=== PATIENT | female | born 1945 | race African-American/Black ===

== ENCOUNTER 2017-04-25 19:12 | Emergency (ER) | payer MEDICARE, MEDICAID ==
[2017-04-25 19:37] LABS: #Basophils 0.1 thou/uL (0.0-0.2); #Eosinphils 0.3 thou/uL (0.0-0.7); #Lymphocytes 2.3 thou/uL (1.20-3.40); #Monocytes 0.6 thou/uL (0.11-0.59); #Neutrophils 3.5 thou/uL (1.40-6.50); %Basophils 1.2 % (0.0-1.0); %Eosinophils 4.1 % (0.0-10.0); %Lymphocytes 34.2 % (21.0-51.0); Hematocrit 38.2 % (36.0-47.0); Red Blood Cell (RBC) Count 3.79 mill/uL (4.20-5.40); White Blood Cell (WBC) Count 6.7 thou/uL (4.8-10.8)
--- NOTE | 2017-04-25 19:45 | RAD ---
AP VIEW OF THE CHEST 04/25/17 INDICATION: Chest pain. IMPRESSION: No acute cardiopulmonary abnormality. Examination is not appreciably changed from comparison dated . Heart size remains upper limits of normal. POS: [facility]
[2017-04-25 20:07] LABS: Troponin I Less than 0.010 ng/mL (< 0.028)
[2017-04-25 20:23] LABS: ALT (SGPT) 17 U/L (8-55); AST (SGOT) 35 U/L (5-34); Alkaline Phosphatase 81 U/L (40-150); Anion Gap 16 mmol/L (10-20); BUN (Urea Nitrogen) 14 mg/dL (9.8-20.1); Bilirubin, Total 0.7 mg/dL (0.2-1.2); CK (CPK) 329 U/L (29-168); Calc. Creatinine Clearance 0 mL/min (70-130); Calcium 9.7 mg/dL (7.8-10.44); Carbon Dioxide 20 mmol/L (23-31); Chloride 106 mmol/L (98-107); Estimated GFR-MDRD 67; Globulin 4.5 g/dL (2.4-3.5); Protein, Total 8.6 g/dL (6.0-8.3)
[2017-04-25 23:23] LABS: Troponin I Less than 0.010 ng/mL (< 0.028)
--- NOTE | 2017-05-05 13:24 | EKG ---
Test Reason : CHEST PAIN Blood Pressure : / mmHG Vent. Rate : 055 BPM Atrial Rate : 055 BPM P-R Int : 180 ms QRS Dur : 094 ms QT Int : 468 ms P-R-T Axes : 077 020 084 degrees QTc Int : 447 ms Sinus bradycardia Minimal voltage criteria for LVH, may be normal variant T wave abnormality, consider lateral ischemia Abnormal ECG Confirmed by HUNTER GZUMAN ([id number]), slot editor MERRICK STEPHENS ([id number]) on 05/05/2017 1:24:11 PM Referred By: DAKOTA Confirmed By:HUNTER GUZMAN
== END 2017-04-26 01:04 | disposition home or self-care (01) ==
LOC: ERS 19:12
DX: R07.9 Chest pain, unspecified (principal); I89.0 Lymphedema, not elsewhere classified; E78.5 Hyperlipidemia, unspecified; M06.9 Rheumatoid arthritis, unspecified; Z79.899 Other long term (current) drug therapy
CPT/HCPCS: 36415; 71010; 80053; 82550; 82553; 84484; 85025; 93005; 94760

== ENCOUNTER 2017-06-27 18:08 | Emergency (ER) | payer MEDICARE, OTHER ==
[~2017-06-27 18:08] MED LIST: ISOVUE-370 76%-LOCM 1 ML ONE
[2017-06-27 20:04] LABS: Bilirubin Negative (Negative); Blood, Urine Negative (Negative); Glucose, Urine (Dipstick) Negative (Negative); Leukocyte Negative (Negative); Nitrite Negative (Negative); Protein, Urine (Dipstick) Negative (Neg-Trace); Urobilinogen 0.2 mg/dL (0.2-1.0)
[2017-06-27 20:11] LABS: Clarity Clear (Clear)
[2017-06-27 20:13] LABS: Specific Gravity, Urine 1.003 (1.002-1.036)
[2017-06-27] MEDS ORDERED: Methocarbamol 500 MG TAB PO SCH (20:15)
[2017-06-27 20:58] LABS: #Basophils 0.1 thou/uL (0.0-0.2); #Eosinphils 0.2 thou/uL (0.0-0.7); #Lymphocytes 2.1 thou/uL (1.20-3.40); #Monocytes 0.6 thou/uL (0.11-0.59); #Neutrophils 4.4 thou/uL (1.40-6.50); %Eosinophils 2.8 % (0.0-10.0); %Lymphocytes 28.3 % (21.0-51.0); %Neutrophils 59.9 % (42.0-75.0); Hemoglobin 11.6 g/dL (12.0-16.0); Mean Corpuscular HGB CONC 33.2 g/dL (32.0-36.0); Mean Corpuscular Hemoglobin 33.8 pg (27.0-31.0); Mean Platelet Volume 7.6 fL (7.4-10.4); Platelet Count 224 thou/uL (130-400); RBC Distribution Width 13.1 % (11.5-14.5); Red Blood Cell (RBC) Count 3.44 mill/uL (4.20-5.40); White Blood Cell (WBC) Count 7.4 thou/uL (4.8-10.8)
[2017-06-27 21:24] LABS: ALT (SGPT) 13 U/L (8-55); AST (SGOT) 21 U/L (5-34); Albumin 3.8 g/dL (3.4-4.8); Alkaline Phosphatase 86 U/L (40-150); Anion Gap 11 mmol/L (10-20); BUN (Urea Nitrogen) 14 mg/dL (9.8-20.1); Bilirubin, Total 0.5 mg/dL (0.2-1.2); Calc. Creatinine Clearance 0 mL/min (70-130); Calcium 9.3 mg/dL (7.8-10.44); Carbon Dioxide 24 mmol/L (23-31); Chloride 105 mmol/L (98-107); Estimated GFR-MDRD 76; Globulin 3.6 g/dL (2.4-3.5); Glucose 99 mg/dL (80-115); Lipase 18 U/L (8-78); Potassium 3.8 mmol/L (3.5-5.1); Protein, Total 7.4 g/dL (6.0-8.3); Sodium 136 mmol/L (136-145)
--- NOTE | 2017-06-27 22:12 | CT ---
CT OF THE ABDOMEN AND PELVIS WITH CONTRAST 06/27/17 HISTORY: Diffuse abdominal and back pain for 6 to 7 months. TECHNIQUE: Multiple contiguous axial images were obtained in a CT of the abdomen and pelvis with contrast. Coron al reformats were performed. FINDINGS: The liver, gallbladder, right kidney, adrenal glands, spleen and pancreas are unremarkable. There is a subcentimeter hypodensity in the superior pole of the left kidney which is too small to definitely characterize but likely represents a cyst. The large and small bowel are unremarkable. The appendix i s unremarkable. The patient is status post hysterectomy. No abdominal or pelvic lymphadenopathy are s een. Degenerative changes are see in the spine. The abdominal wall soft tissues and visualized inferi or thorax are unremarkable. IMPRESSION: No evidence of acute intra-abdominal/pelvic abnormality. POS: [facility]
== END 2017-06-27 23:30 | disposition home or self-care (01) ==
LOC: ERS 18:08
DX: R10.9 Unspecified abdominal pain (principal); M54.9 Dorsalgia, unspecified; E78.5 Hyperlipidemia, unspecified
CPT/HCPCS: 36415; 74177; 80053; 81003; 83690; 85025; 96372

== ENCOUNTER 2017-07-06 20:09 | Emergency (ER) | payer MEDICARE, MEDICAID ==
[2017-07-06 20:55] LABS: #Basophils 0.1 thou/uL (0.0-0.2); #Eosinphils 0.3 thou/uL (0.0-0.7); #Lymphocytes 1.9 thou/uL (1.20-3.40); #Monocytes 0.5 thou/uL (0.11-0.59); #Neutrophils 3.9 thou/uL (1.40-6.50); %Basophils 0.8 % (0.0-1.0); %Eosinophils 4.2 % (0.0-10.0); %Lymphocytes 28.6 % (21.0-51.0); %Neutrophils 59.3 % (42.0-75.0); Hemoglobin 12.7 g/dL (12.0-16.0); Mean Corpuscular HGB CONC 32.3 g/dL (32.0-36.0); Mean Corpuscular Hemoglobin 33.1 pg (27.0-31.0); Mean Platelet Volume 7.7 fL (7.4-10.4); Platelet Count 225 thou/uL (130-400); RBC Distribution Width 13.2 % (11.5-14.5); Red Blood Cell (RBC) Count 3.85 mill/uL (4.20-5.40); White Blood Cell (WBC) Count 6.6 thou/uL (4.8-10.8)
[2017-07-06 21:16] LABS: ALT (SGPT) 15 U/L (8-55); AST (SGOT) 23 U/L (5-34); Albumin 4.1 g/dL (3.4-4.8); Alkaline Phosphatase 84 U/L (40-150); Anion Gap 16 mmol/L (10-20); BUN (Urea Nitrogen) 14 mg/dL (9.8-20.1); Bilirubin, Total 0.6 mg/dL (0.2-1.2); Calc. Creatinine Clearance 0 mL/min (70-130); Calcium 9.6 mg/dL (7.8-10.44); Carbon Dioxide 20 mmol/L (23-31); Chloride 106 mmol/L (98-107); Estimated GFR-MDRD 81; Globulin 3.7 g/dL (2.4-3.5); Glucose 92 mg/dL (80-115); Potassium 3.7 mmol/L (3.5-5.1); Protein, Total 7.8 g/dL (6.0-8.3); Sodium 138 mmol/L (136-145)
[2017-07-06 21:21] LABS: CKMB 3.2 ng/mL (0-6.6); Troponin I 0.012 ng/mL (< 0.028)
[2017-07-06 21:50] LABS: Bilirubin Negative (Negative); Blood, Urine Negative (Negative); Clarity CLEAR (Clear); Glucose, Urine (Dipstick) Negative (Negative); Leukocyte Negative (Negative); Nitrite Negative (Negative); Protein, Urine (Dipstick) Negative (Neg-Trace); Specific Gravity, Urine 1.006 (1.002-1.036); Urobilinogen 0.2 mg/dL (0.2-1.0)
--- NOTE | 2017-07-06 22:01 | RAD ---
PORTABLE AP CHEST RADIOGRAPH: Date: 07-06-17 History: Syncope. Comparison: 04-26-17 FINDINGS: Cardiac silhouette is magnified by projection. Pulmonary vasculature is within normal limits. Lungs a re clear. Chest is stable when compared to the prior exam. IMPRESSION: No acute cardiopulmonary process. POS: [facility]
--- NOTE | 2017-07-06 22:36 | CT ---
NONCONTRAST CT HEAD: Date: 07-06-17 History: Head pain for one hour. Dizziness. Comparison: None available. FINDINGS: There is scattered low density areas of periventricular white matter which are nonspecific but likely reflective of mild chronic small vessel ischemic changes. There is no evidence of an acute cortical infarction, mass, hemorrhage or midline shift. The ventricular system is normal in size, shape, and p osition. Visualized paranasal sinuses and mastoid air cells are clear. Osseous structures are intact. IMPRESSION: No acute intracranial abnormalities demonstrated. Mild chronic small vessel ischemic changes. POS: [facility]
--- NOTE | 2017-08-01 15:56 | EKG ---
Test Reason : DIZZY Blood Pressure : / mmHG Vent. Rate : 066 BPM Atrial Rate : 066 BPM P-R Int : 168 ms QRS Dur : 090 ms QT Int : 410 ms P-R-T Axes : 070 042 157 degrees QTc Int : 429 ms Normal sinus rhythm T wave abnormality, consider inferolateral ischemia Abnormal ECG Confirmed by PAULA LOYA, CALLI ([id number]), loan expeditor MERRICK STEPHENS ([id number]) on 08/01/2017 3:56:07 PM Referred By: Confirmed By:CALLI MITCHELL MD
== END 2017-07-07 00:07 | disposition home or self-care (01) ==
LOC: ERS 20:09
DX: R42 Dizziness and giddiness (principal); E78.5 Hyperlipidemia, unspecified; M06.9 Rheumatoid arthritis, unspecified
CPT/HCPCS: 36415; 70450; 71045; 80053; 81003; 82553; 83880; 84484; 85025; 93005

== ENCOUNTER 2017-07-29 09:16 | Observation (INO) | payer MEDICARE, MEDICAID ==
[2017-07-29 10:35] LABS: #Eosinphils 0.2 thou/uL (0.0-0.7); #Lymphocytes 1.4 thou/uL (1.20-3.40); #Monocytes 0.4 thou/uL (0.11-0.59); #Neutrophils 2.1 thou/uL (1.40-6.50); %Basophils 0.9 % (0.0-1.0); %Lymphocytes 33.5 % (21.0-51.0); %Monocytes 9.3 % (0.0-10.0); %Neutrophils 51.2 % (42.0-75.0); Hemoglobin 12.1 g/dL (12.0-16.0); Mean Corpuscular Hemoglobin 33.1 pg (27.0-31.0); Mean Platelet Volume 7.4 fL (7.4-10.4); Platelet Count 225 thou/uL (130-400); RBC Distribution Width 12.8 % (11.5-14.5); Red Blood Cell (RBC) Count 3.66 mill/uL (4.20-5.40); White Blood Cell (WBC) Count 4.1 thou/uL (4.8-10.8)
[2017-07-29 10:42] LABS: PTT 25.7 SEC (22.9-36.1); Prothrombin Time 13.4 SEC (12.0-14.7)
[2017-07-29 10:59] LABS: ALT (SGPT) 13 U/L (8-55); AST (SGOT) 22 U/L (5-34); Albumin 3.8 g/dL (3.4-4.8); Alkaline Phosphatase 85 U/L (40-150); Anion Gap 12 mmol/L (10-20); BUN (Urea Nitrogen) 10 mg/dL (9.8-20.1); Bilirubin, Total 0.6 mg/dL (0.2-1.2); CK (CPK) 306 U/L (29-168); Calc. Creatinine Clearance 0 mL/min (70-130); Calcium 9.2 mg/dL (7.8-10.44); Carbon Dioxide 23 mmol/L (23-31); Chloride 106 mmol/L (98-107); Estimated GFR-MDRD 76; Globulin 3.7 g/dL (2.4-3.5); Glucose 134 mg/dL (80-115); Magnesium 1.8 mg/dL (1.6-2.6); Potassium 4.2 mmol/L (3.5-5.1); Protein, Total 7.5 g/dL (6.0-8.3); Sodium 137 mmol/L (136-145)
[2017-07-29 11:03] LABS: CKMB 3.7 ng/mL (0-6.6); Troponin I Less than 0.010 ng/mL (< 0.028)
--- NOTE | 2017-07-29 11:04 | RAD ---
PORTABLE CHEST: Date: 07-29-17 Time: 10:28 a.m. History: Chest pain. FINDINGS: Comparison is made with exam of 07-06-17. The heart size is normal. The lungs are well expanded without focal areas of consolidation, pneumotho rax or pleural effusions. There are degenerative changes in the shoulder joints and the spine. IMPRESSION: No radiographic evidence of acute cardiopulmonary process. POS: [facility]
[2017-07-29] MEDS ORDERED: Ondansetron ODT 4 MG TAB PO PRN (12:51)
[2017-07-29] MEDS ORDERED: Ondansetron HCl/PF 4 MG/2 ML Vial IVP PRN (12:51)
[2017-07-29] MEDS ORDERED: Acetaminophen 325 MG TAB PO PRN (12:52)
[2017-07-29 13:40] VITALS: BMI 43.1
--- NOTE | 2017-07-29 13:43 | PDOC.FPRHP ---
- History of Present Illness Chief Complaint: Chest pain History of Present Illness: 72 year old female with a past medical history of HLD, RA, and HTN presents with a cheif complaint of chest pain starting at 0800 this morning. She describes it as a left-sided burning and cramping associated with dyspnea and radiation to her neck. She denies diaphoresis and nausea. States pain was constant but has now resolved. She denies alleviating and aggravating factors and has not had this pain before. She took 4 aspirin 81 mg and reports her chest started feeling tight about the time EMS arrived. PCP is Dr. Trujillo ED Course: Seen by Dr. Xiao. Noted to have bradycardia and t-wave inversions on EKG. Dr. Arguelles in cardiology consulted - Allergies/Adverse Reactions Allergies Allergy/AdvReac Type Severity Reaction Status Date / Time No Known Drug Allergies Allergy Verified 03/09/16 01:03 - Home Medications Medication Instructions Recorded Confirmed Type Atorvastatin Calcium [Lipitor] 40 mg PO HS #0 tab 03/10/16 Rx - History PMHx: HTN, HLD, RA. No known history of CAD, CHF, VT, or CVA PSHx: BTL, hysterectomy FHx: Brother had an VT at age 67 Social: Reports she is disabled, , has six children. Denies history of alcohol, tobacco, and drug use. - Review of Systems General: denies: fever/chills, weight/appetite/sleep changes, night sweats, fatigue Eyes: denies: eye pain, vision changes ENT: denies: nasal congestion, rhinorrhea Respiratory: reports: shortness of breath, exercise intolerance. denies: cough , congestion Cardiovascular: reports: chest pain, edema (Chronic leg edema). denies: palpitation, paroxysmal nocturnal dyspnea, orthopnea Gastrointestinal: denies: nausea, vomiting, diarrhea, constipation, abdominal pain, GI bleeding Genitourinary: denies: incontinence, dysuria, polyuria Skin: denies: rashes, lesions, jaundice Musculoskeletal: denies: pain, tenderness, stiffness, swelling, arthritis/ arthralgias Neurological: denies: numbness, syncope, seizure, weakness Psychological: denies: anxiety, depression - Vital signs BP: [] HR: [] RR: [] Tmax: [] Pox: []% on [] Wt: [] - Physical Exam Constitutional: NAD, awake, alert and oriented -Constitutional: Obese HEENT: normocephalic and atraumatic, PERRLA, EOMI, conjunctiva clear, grossly normal vision, TM's clear and intact, grossly normal hearing, normal nasal mucosa, MMM, oropharynx clear, good dention Neck: supple, FROM, trachea midline, no LAD, no JVD, no thyromegaly, no bruits Chest: no-tender to palpation, no lesions Heart: RRR, normal S1/S2, no murmurs/rubs/gallops, pulses present, other (2+ edema of bilateral lower extremities) Lungs: CTAB, no respiratory distress, good air movement, no rales/rhonchi, no wheezing, no retractions Abdomen: soft, non-tender, bowel sounds present, no masses/distention, no hernias Musculoskeletal: normal structure, normal tone, ROM grossly normal Neurological: no focal deficit, CN II-XII intact, normal sensation, DTRs 2+ Skin: no rash/lesions, good turgor, capillary refill <2 seconds, no jaundice Heme/Lymphatic: no unusual bruising or bleeding, no purpura, no petechia, no LAD Psychiatric: normal mood and affect, good judgment and insight, intact recent and remote memory FMR H&P: Results - Labs Result Diagrams: 07/29/17 10:24 07/29/17 10:24 Lab results: WBC 4.1 thou/uL (4.8-10.8) L 07/29/17 10:24 Hgb 12.1 g/dL (12.0-16.0) 07/29/17 10:24 Hct 36.8 % (36.0-47.0) 07/29/17 10:24 MCV 100.0 fl (81.0-99.0) H 07/29/17 10:24 Plt Count 225 thou/uL (130-400) 07/29/17 10:24 Neutrophils % 51.2 % (42.0-75.0) 07/29/17 10:24 Sodium 137 mmol/L (136-145) 07/29/17 10:24 Potassium 4.2 mmol/L (3.5-5.1) 07/29/17 10:24 Chloride 106 mmol/L (98-107) 07/29/17 10:24 Carbon Dioxide 23 mmol/L (23-31) 07/29/17 10:24 BUN 10 mg/dL (9.8-20.1) 07/29/17 10:24 Creatinine 0.89 mg/dL (0.6-1.1) 07/29/17 10:24 Glucose 134 mg/dL (80-115) H 07/29/17 10:24 Calcium 9.2 mg/dL (7.8-10.44) 07/29/17 10:24 Total Bilirubin 0.6 mg/dL (0.2-1.2) 07/29/17 10:24 AST 22 U/L (5-34) 07/29/17 10:24 ALT 13 U/L (8-55) 07/29/17 10:24 Alkaline Phosphatase 85 U/L (40-150) 07/29/17 10:24 Creatine Kinase 306 U/L (29-168) H 07/29/17 10:24 CK-MB (CK-2) 3.7 ng/mL (0-6.6) 07/29/17 10:24 B-Natriuretic Peptide 63.7 pg/mL (0-100) 07/29/17 10:24 Serum Total Protein 7.5 g/dL (6.0-8.3) 07/29/17 10:24 Albumin 3.8 g/dL (3.4-4.8) 07/29/17 10:24 Laboratory Tests 07/29/17 07/29/17 10:24 10:24 CK-MB (CK-2) 3.7 Troponin I Less than 0.010 B-Natriuretic Peptide 63.7 - EKG Interpretation EKG: Sinus bradycardia with T-wave inversions in lead V4-6. No ST segment changes FMR H&P: A/P - Problem List (1) Atypical chest pain Current Visit: No Status: Acute Priority: High Code(s): R07.89 - OTHER CHEST PAIN (2) Bradycardia Current Visit: Yes Status: Acute Code(s): R00.1 - BRADYCARDIA, UNSPECIFIED (3) HTN (hypertension) Current Visit: No Status: Acute Code(s): I10 - ESSENTIAL (PRIMARY) HYPERTENSION (4) HLD (hyperlipidemia) Current Visit: No Status: Acute Code(s): E78.5 - HYPERLIPIDEMIA, UNSPECIFIED (5) Obesity Current Visit: Yes Status: Acute Code(s): E66.9 - OBESITY, UNSPECIFIED (6) Bilateral lower extremity edema Current Visit: Yes Status: Acute Code(s): R60.0 - LOCALIZED EDEMA (7) Rheumatoid arthritis Current Visit: Yes Status: Acute Code(s): M06.9 - RHEUMATOID ARTHRITIS, UNSPECIFIED - Plan 72 year old female p/w: 1) Atypical chest pain - Place in telemetry unit - Trend cardiac enzymes and EKG - TSH, mag, normal - Check FLP. Continue aspirin and statin - Check UDS - Dr. Arguelles cardiology consulted by ED. Appreciate his recs - There may be a component of GERD. H2 nivia ordered by Dr. Arguelles 2) New onset bradycardia - No meds that may be cause - Cardiology consulted. Appreciate his recs 3) HLD - Home statin 4) HTN - Not currently on meds. Will likely start a new med prior to DC. Monitor BP 5) Obesity - Will baby counselor patient on diet and exercise prior to DC\ 6) Chronic lower extremity edema - Symptoms and BNP not consistent with CHF - Would likely benefit from compression stockings on discharge 7) Code Status - Full 8) Diet - Heart healthy; NPO ad midnight 9) Activity - Ad rikki 10) DVT Prophylaxis - Will use Lovenox. Patient's legs were tender to palpation and SCDs might cause discomfort. Disposition/LOS: LOS: 2 days Dispo: Plan for discharge home FMR H&P: Upper Level - Plan Date/Time: 07/29/17 1341 I, [], have evaluated this patient and agree with findings/plan as outlined by phd intern resident. Pertinent changes/additions are listed here. Attending Addendum - Attending Addendum Date/Time: 07/29/17 0678 I personally evaluated the patient and discussed the management with Dr. Mello on 07/29/17. I agree with the History, Examination, Assessment and Plan documented above with any addition or exceptions noted below. Patient with typical angina. Cardiac enzymes normal, EKG with worsened T wave inversions in lateral leads. Dr. Arguelles taking patient to cath.
[2017-07-29] MEDS ORDERED: Famotidine 20 MG TAB PO SCH (13:45)
--- NOTE | 2017-07-29 13:58 | CON ---
DATE OF CONSULTATION: 07/29/2017 REASON FOR CONSULTATION: Chest pain and abnormal EKG. HISTORY OF PRESENT ILLNESS: Ms. Katie Sparks is a very pleasant 72-year-old woman previously seen and evaluated by Dr. Wally Lopez. The patient states she was feeling well this morning when she started may ving a burning sensation in the posterior chest and in the left anterior chest and then in the middle of her chest. It became unbearable. She thought it was going to go away, but did not. She called the ambulance and they ultimately brought her to the hospital and discomfort gradually resolved. The patient has been bradycardic since making a medical contact today. PAST MEDICAL HISTORY: The patient did have a history of abnormal stress test and was seen in the off ice in 2016. She underwent stress testing and Dr. Lopez recommended cardiac catheterization to her. From what I can tell that was not done at [facility]. The patient has lost contact with Dr. Lopez, from what I can tell is 06/13/2015. The patient states t hat she thinks she may have had a heart catheterization done at [facility] after that a nd told that there is no blockage, but she cannot really remember much details about that. The patient states she is not having pain now, but when she got up and walked around the room a littl e bit ago, she started having discomfort in her chest again. She is pain free right now. MEDICATIONS AT HOME: She took 4 aspirin this morning, but she does not take aspirin on a regular bas is. She said she took the aspirin and chewed them up. Atorvastatin. ALLERGIES: None known. SOCIAL HISTORY: No alcohol or tobacco. FAMILY HISTORY: Negative for heart disease at a young age. REVIEW OF SYSTEMS: Constitutional: No significant weight gain or loss. Vision: No changes. Heari ng: No changes. Pulmonary: No cough or wheezing. Gastrointestinal: No nausea, vomiting, diarrhea . Skin: No rashes. Neurologic: No unilateral weakness or numbness. Psychiatric: No unusual depr ession or anxiety. PHYSICAL EXAMINATION: GENERAL: This is a pleasant elderly woman, somewhat apprehensive. Heart rate is in the high 40s. VITAL SIGNS: Blood pressure 156/72. HEENT: Eyes, sclerae nonicteric. Mouth mucous membranes moist. NECK: Supple, no lymphadenopathy. LUNGS: Clear, no wheezing, rales, or rhonchi. CARDIAC: Normal S1, normal S2. There is no murmur, rub, or gallop. ABDOMEN: Shows obese. EXTREMITIES: Peripheral pulses are present in her feet. Cardiac enzymes, troponin level is negative. EKG sinus bradycardia with T-wave inversion V4 through V6 with left ventricular hypertrophy with repolarization likely cause of this. She certainly has vol tage for LVH in the lateral chest leads. ASSESSMENT: 1. Chest pain suspicious for angina. 2. Sinus bradycardia. 3. Hypertension. 4. Normal cardiac catheterization, according to the patient, done within the last 2 years from what she is telling me. PLAN: 1. We are trying to obtain records. 2. Also give her medicine for acid reflux in the meantime. 3. If she has indeed not have a cardiac catheterization should undergo cardiac catheterization, but the patient states she has had this done and therefore we will trying to get records.
[2017-07-29 14:06] LABS: CKMB 3.4 ng/mL (0-6.6); Troponin I Less than 0.010 ng/mL (< 0.028)
[2017-07-29 17:19] LABS: CKMB 3.2 ng/mL (0-6.6); Troponin I Less than 0.010 ng/mL (< 0.028)
[2017-07-29 17:51] LABS: Amphetamine Not Detected (NotDetected); Barbiturates Screen Not Detected (NotDetected); Benzodiazepine Screen Not Detected (NotDetected); Cocaine Metabolite Screen Not Detected (NotDetected); Medtox Control Line Valid? VALID (VALID); Medtox Reader # READER 1; Methadone Not Detected (NotDetected); Methamphetamine Not Detected (NotDetected); Opiate Screen Not Detected (NotDetected); Oxycodone Screen Not Detected (NotDetected); Phencyclidine (PCP) Not Detected (NotDetected); THC/Cannabinoid Screen Not Detected (NotDetected); Tricyclic Screen Not Detected (NotDetected)
[2017-07-29] MEDS: Famotidine 20 MG TAB PO SCH (21:07)
[2017-07-30 05:14] LABS: #Eosinphils 0.2 thou/uL (0.0-0.7); #Lymphocytes 1.4 thou/uL (1.20-3.40); #Monocytes 0.4 thou/uL (0.11-0.59); #Neutrophils 2.8 thou/uL (1.40-6.50); %Basophils 0.8 % (0.0-1.0); %Eosinophils 4.4 % (0.0-10.0); %Lymphocytes 28.4 % (21.0-51.0); %Monocytes 9.2 % (0.0-10.0); %Neutrophils 57.3 % (42.0-75.0); Hemoglobin 10.8 g/dL (12.0-16.0); Mean Corpuscular HGB CONC 33.4 g/dL (32.0-36.0); Mean Corpuscular Hemoglobin 33.4 pg (27.0-31.0); Mean Platelet Volume 7.5 fL (7.4-10.4); Platelet Count 204 thou/uL (130-400); RBC Distribution Width 12.8 % (11.5-14.5); Red Blood Cell (RBC) Count 3.23 mill/uL (4.20-5.40); White Blood Cell (WBC) Count 4.8 thou/uL (4.8-10.8)
[2017-07-30 05:28] LABS: Anion Gap 10 mmol/L (10-20); BUN (Urea Nitrogen) 10 mg/dL (9.8-20.1); Calc. Creatinine Clearance 115 mL/min (70-130); Calcium 9.1 mg/dL (7.8-10.44); Carbon Dioxide 24 mmol/L (23-31); Cardiac Risk 2.9 (Less than 4.5); Chloride 107 mmol/L (98-107); Cholesterol 130 mg/dl (< 200 Desired); Estimated GFR-MDRD 78; Glucose 150 mg/dL (80-115); HDL Cholesterol 45 mg/dL (>60 Neg Risk); LDL Cholesterol, Calculated 65 mg/dL; Potassium 3.8 mmol/L (3.5-5.1); Sodium 137 mmol/L (136-145); Triglycerides 100 mg/dL (Less than 150)
--- NOTE | 2017-07-30 07:57 | PDOC.FM ---
- Subjective Subjective: Patient reports that her chest pain still comes and goes, she describes it as a burning pain that is worse with activity like when she got up to go to the bathroom last night. She denies any associated SOB. She did not have any chest pain while she was lying down. She denies any N/V - Objective MAR Reviewed: Yes Vital Signs & Weight: Vital Signs (12 hours) Temp Pulse Resp BP BP Pulse Ox 07/30/17 07:45 52 L 122/56 L 07/30/17 07:11 97.6 F 48 L 16 98 07/30/17 03:06 97.8 F 67 20 124/67 96 07/29/17 20:05 96.8 F L 52 L 20 Weight Weight 121.155 kg I&O: 07/29/17 07/30/17 07/31/17 06:59 06:59 06:59 Intake Total 830 Output Total 1250 Balance -420 Result Diagrams: 07/30/17 04:26 07/30/17 04:26 <Marissa Vila - Last Filed: 07/30/17 11:54> - Objective Vital Signs & Weight: Vital Signs (12 hours) Temp Pulse Resp BP Pulse Ox 07/30/17 11:21 97.8 F 57 L 16 117/80 98 07/30/17 10:54 98 07/30/17 07:53 97.6 F 52 L 16 07/30/17 07:45 52 L 122/56 L 07/30/17 07:11 97.6 F 48 L 16 98 Weight Weight 121.155 kg I&O: 07/29/17 07/30/17 07/31/17 06:59 06:59 06:59 Intake Total 830 200 Output Total 1250 Balance -420 200 Result Diagrams: 07/30/17 04:26 07/30/17 04:26 <Chandan Calixto - Last Filed: 07/30/17 16:01> Phys Exam - Physical Examination Constitutional: NAD HEENT: moist MMs Respiratory: no wheezing, no rales, no rhonchi, clear to auscultation bilateral Cardiovascular: no significant murmur, no rub bradycardic Gastrointestinal: soft, non-tender, no distention, positive bowel sounds Musculoskeletal: pulses present, edema present (2+ edema of BLE) Neurological: non-focal, moves all 4 limbs Psychiatric: normal affect, A&O x 3 Skin: normal turgor, cap refill <2 seconds <Marissa Vila - Last Filed: 07/30/17 11:54> Dx/Plan (1) Atypical chest pain Code(s): R07.89 - OTHER CHEST PAIN Status: Acute (2) Bradycardia Code(s): R00.1 - BRADYCARDIA, UNSPECIFIED Status: Acute (3) Bilateral lower extremity edema Code(s): R60.0 - LOCALIZED EDEMA Status: Acute (4) Obesity Code(s): E66.9 - OBESITY, UNSPECIFIED Status: Acute QualifierTitle: Obesity type: due to excess calories Obesity classification: adult class 3 (BMI >= 40) Serious obesity comorbidity presence : without serious comorbidity Body mass index: BMI 40.0-44.9 Qualified Code( s): E66.01 - Morbid (severe) obesity due to excess calories; Z68.41 - Body mass index (BMI) 40.0-44.9, adult; Z68.41 - Body mass index (BMI) 40.0-44.9, adult; Z68.41 - Body mass index (BMI) 40.0-44.9, adult; Z68.41 - Body mass index (BMI) 40.0-44.9, adult (5) HLD (hyperlipidemia) Code(s): E78.5 - HYPERLIPIDEMIA, UNSPECIFIED Status: Acute QualifierTitle: Hyperlipidemia type: unspecified Qualified Code(s): E78.5 - Hyperlipidemia, unspecified (6) HTN (hypertension) Code(s): I10 - ESSENTIAL (PRIMARY) HYPERTENSION Status: Acute QualifierTitle: Hypertension type: essential hypertension Qualified Code( s): I10 - Essential (primary) hypertension - Plan Plan: Atypical chest pain The patient had negative troponins and describes a burning pain that is worse with exertion. She had a negative cath done at [facility] 2 years ago. TSH and mag WNL. ASCVD 10 yr risk: 7.1%. There may be a component of GERD contributing. - Continue aspirin and statin - Dr. Arguelles cardiology consulted by ED. Appreciate his recs - Pepcid ordered by Dr. Arguelles Sinus Bradycardia The patient isn't taking any meds that appear to be contributing. Tele: Sinus Eusebio with rate 40s-50s - Cardiology consulted, appreciate recs - Would likely benefit from pacemaker HLD - Continue home statin HTN Not currently on meds. BP has been well controlled throughout admission. - Will likely start a new med prior to D/C. - Will continue to monitor. Morbid Obesity - Will securities counselor patient on diet and exercise prior to D/C Chronic lower extremity edema Symptoms and BNP not consistent with CHF - Would likely benefit from compression stockings on discharge - Will get BLE dopplers to r/o DVT <Marissa Vila - Last Filed: 07/30/17 11:54> Attending Addendum - Attending Addendum Date/Time: 07/30/17 1601 I personally evaluated the patient and discussed the management with Dr. Vila. I agree with the History, Examination, Assessment and Plan documented above with any addition or exceptions noted below. <Chandan Calixto - Last Filed: 07/30/17 16:01>
[2017-07-30] MEDS ORDERED: Aspirin 325 MG TAB PO SCH (09:00)
[2017-07-30] MEDS ORDERED: Enoxaparin Sodium 40 MG/0.4 ML SYRINGE SC SCH (09:00)
[2017-07-30] MEDS: Famotidine 20 MG TAB PO SCH (09:26)
[2017-07-30 11:37] VITALS: BP 117/80; TEMP 97.8
--- NOTE | 2017-07-30 12:22 | PDOC.CTH ---
Cardiology Progress Note - Subjective The pt seen and examined. No overnight events. No cardiac complaints. She reported that she never had dizziness, lightheadedness, or near syncopal episodes. Explained about function of PM, the procedure and the risk of PM placement. Her questions were answered. She voiced understanding and still would like to hold the procedure for now. She would like to discuss with all her children and see her Aboriginal Education Teacher before making any decisions, including PM placement and EVR monitoring. - Objective Vital Signs Temp Pulse Resp BP BP Pulse Ox 07/30/17 11:21 97.8 F 57 L 16 117/80 98 07/30/17 10:54 98 07/30/17 07:53 97.6 F 52 L 16 07/30/17 07:45 52 L 122/56 L 07/30/17 07:11 97.6 F 48 L 16 98 07/30/17 03:06 97.8 F 67 20 124/67 96 Weight 267 lb 1.6 oz 07/29/17 07/30/17 07/31/17 06:59 06:59 06:59 Intake Total 830 200 Output Total 1250 Balance -420 200 - Physical Examination General/Neuro: alert & oriented x3 Neck: no JVD present Lungs: CTA Heart: RRR Abdomen: soft Extremities: other: (BLE edema Lt>Rt) - Telemetry Telemetry Rhythm: SB 40-50s - Labs Result Diagrams: 07/30/17 04:26 07/30/17 04:26 Troponin/CKMB CK-MB (CK-2) 3.2 ng/mL (0-6.6) 07/29/17 16:39 Troponin I Less than 0.010 ng/mL (< 0.028) 07/29/17 16:39 - Assessment/Plan 1. Bradycardia - HR has been 40-50s. The pt was asymptomatic. After long conversation with the pt and her daughter who was on the phone, the pt refused to have PM placement, refused EVR monitor at home, and wants to have further discussion with her children about her PM placement. 2. CP - The pt denied any CP or discomfort in her chest. Her Cardiac cath in showed normal Coronary arteries without any stenosis. 3. HTN - stable 4. Hyperlipidemia - on Statin 5. BLE edema - Venogram was done today and the result is pending MAR reviewed * Echo in 08/2015 showed EF 71% with normal technical applications scientist function. * The pt refused to have PM placement or even EVR monitor for a few wks. She would like to discuss with her children before she decides. * From Cardiac standpoint, the pt is ok to d/c to [facility]. Instructed the pt to f/u with her Aboriginal Education Teacher YONI for Hx of Bradycardia and possible PM placement. Review of Systems - Review of Systems Constitutional: reports: no symptoms reported EENTM: reports: no symptoms reported Respiratory: reports: no symptoms reported Cardiac (ROS): reports: no symptoms reported ABD/GI: reports: no symptoms reported : reports: no symptoms reported Musculoskeletal: reports: no symptoms reported Skin: reports: no symptoms reported Neurological: reports: no symptoms reported Endocrine: reports: no symptoms reported
--- NOTE | 2017-07-30 12:24 | ULT ---
BILATERAL LOWER EXTREMITY VENOUS DOPPLER ULTRASOUND: HISTORY: Bilateral leg edema. TECHNIQUE: Aguayo scale ultrasound with color flow and spectral Doppler imaging of the deep venous systems of the lower extremities performed bilaterally. FINDINGS: There is good flow, compression, and augmentation noted in the common femoral, femoral, deep femoral, popliteal, and greater saphenous veins on either side. IMPRESSION: No evidence of deep vein thrombosis in either lower extremity. POS: [facility]
[2017-07-30] MEDS ORDERED: Famotidine 20 MG TAB PO SCH (13:33)
--- NOTE | 2017-07-30 17:43 | EKG ---
Test Reason : Blood Pressure : / mmHG Vent. Rate : 042 BPM Atrial Rate : 042 BPM P-R Int : 206 ms QRS Dur : 102 ms QT Int : 522 ms P-R-T Axes : 074 011 227 degrees QTc Int : 435 ms Marked sinus bradycardia with sinus arrhythmia Moderate voltage criteria for LVH, may be normal variant T wave abnormality, consider anterolateral ischemia Abnormal ECG When compared with ECG of 06-JUL-2017 20:26, (Unconfirmed) Vent. rate has decreased BY 24 BPM Inverted T waves have replaced nonspecific T wave abnormality in Anterior leads Confirmed by DR. Nikhil BOLANOS ([id number]) on 07/30/2017 5:43:08 PM Referred By: GIGI Confirmed By:DR. Nikhil BOLANOS
--- NOTE | 2017-07-31 01:23 | DIS-2 ---
DATE OF ADMISSION: 07/29/2017 DATE OF DISCHARGE: 07/30/2017 ADMITTING RESIDENT: Yinka Mello DO DISCHARGE RESIDENT: Marissa Vila MD ADMITTING ATTENDING: Linda Patterson DO DISCHARGE ATTENDING: Chandan Calixto MD CONSULTATION: Dr. Lopez with Cardiology. PROCEDURES: None. IMAGING: A lower extremity Doppler showed no evidence of DVT in either lower extremity. PRIMARY DIAGNOSES: 1. Atypical chest pain. 2. Sinus bradycardia. 3. Chronic lower extremity edema. SECONDARY DIAGNOSES: 1. Hyperlipidemia. 2. Hypertension. 3. Morbid obesity. DISCHARGE MEDICATIONS: 1. Aspirin 81 mg p.o. daily. 2. Famotidine 20 mg p.o. b.i.d. 3. Vitamin B12, 1000 mcg p.o. daily. 4. Calcium 500 mg p.o. daily. 5. Atorvastatin 10 mg p.o. at bedtime. DISCONTINUED MEDICATIONS: None. HISTORY OF PRESENT ILLNESS/HOSPITAL COURSE: This is a 72-year-old female who presented complaining o f chest pain that she described as a burning-type chest pain, worse when she exerted herself. The pa tient was found to be bradycardic to the 40s and 50s. The patient had had a negative cardiac cathete rization in 2016 at [facility], which we obtained records for. The patient's troponins on this ad mission were negative. The patient's case was discussed with Dr. Lopez with Cardiology and the recomm endation was for her to be evaluated for potential pacemaker placement with her significant bradycard ia. However, this was discussed with the patient and the patient adamantly refused pacemaker placeme nt or any further forms of evaluation such as a Holter monitor. The patient would potentially consid er this if she discussed with her children before deciding. The patient was started on a H2 nivia with concern that GERD might be contributing to her burning-type pain in her chest, and it was recomm ended that she follow up with her primary care physician as well as Cardiology to have an echo done o utpatient. The patient was also encouraged to follow up with Cardiology if she changes her mind rega rding the pacemaker. DISPOSITION: Stable. DISCHARGE INSTRUCTIONS: 1. Location: Home. 2. Diet: Heart healthy. 3. Activity: As tolerated. 4. Follow up with Dr. Trujillo within 1-2 weeks.
[2017-07-31 14:30] LABS: Folate,Hemolysate 300.2 ng/mL (Not Estab.); Hematocrit 33.4 % (34.0-46.6); RBC Folate Test Component 899 ng/mL (>498)
== END 2017-07-30 16:31 | disposition home or self-care (01) ==
LOC: ERS 09:16 → 2SW 11:47
PROVIDERS: ADMIT Family Medicine; ATTEND Family Medicine
DX: R07.89 Other chest pain (principal); R00.1 Bradycardia, unspecified; R60.0 Localized edema; E78.5 Hyperlipidemia, unspecified; I10 Essential (primary) hypertension; E66.01 Morbid (severe) obesity due to excess calories; Z68.41 Body mass index [BMI] 40.0-44.9, adult; Z79.82 Long term (current) use of aspirin
CPT/HCPCS: 71045; 80048; 80061; 80306; 82550; 82553 ×2; 82607; 82747; 83735; 83880; 84484 ×2; 85014; 85025; 85610; 85730; 93005; 93970; 94760 ×2; 96372; 99285; G0378; 36415; 80053; 84443; 93010; A4216; J1650

== ENCOUNTER 2017-11-02 23:02 | Emergency (ER) | payer MEDICARE, OTHER ==
[2017-11-03 00:03] LABS: #Basophils 0.1 thou/uL (0.0-0.2); #Eosinphils 0.4 thou/uL (0.0-0.7); #Lymphocytes 2.1 thou/uL (1.20-3.40); #Monocytes 0.6 thou/uL (0.11-0.59); #Neutrophils 4.4 thou/uL (1.40-6.50); %Basophils 0.7 % (0.0-1.0); %Eosinophils 4.9 % (0.0-10.0); %Lymphocytes 28.2 % (21.0-51.0); %Neutrophils 58.2 % (42.0-75.0); Hemoglobin 11.3 g/dL (12.0-16.0); Mean Corpuscular HGB CONC 35.2 g/dL (32.0-36.0); Mean Corpuscular Hemoglobin 34.2 pg (27.0-31.0); Mean Corpuscular Volume 97.3 fl (81.0-99.0); Mean Platelet Volume 7.2 fL (7.4-10.4); Platelet Count 190 thou/uL (130-400); RBC Distribution Width 12.8 % (11.5-14.5); Red Blood Cell (RBC) Count 3.29 mill/uL (4.20-5.40); White Blood Cell (WBC) Count 7.5 thou/uL (4.8-10.8)
[2017-11-03 00:24] LABS: ALT (SGPT) 18 U/L (8-55); AST (SGOT) 30 U/L (5-34); Albumin 3.6 g/dL (3.4-4.8); Alkaline Phosphatase 107 U/L (40-150); Anion Gap 14 mmol/L (10-20); BUN (Urea Nitrogen) 12 mg/dL (9.8-20.1); Bilirubin, Total 0.4 mg/dL (0.2-1.2); Calc. Creatinine Clearance 0 mL/min (70-130); Calcium 9.4 mg/dL (7.8-10.44); Carbon Dioxide 20 mmol/L (23-31); Chloride 103 mmol/L (98-107); Estimated GFR-MDRD 66; Globulin 3.6 g/dL (2.4-3.5); Glucose 217 mg/dL (80-115); Potassium 4.2 mmol/L (3.5-5.1); Protein, Total 7.2 g/dL (6.0-8.3); Sodium 133 mmol/L (136-145)
[2017-11-03 00:44] LABS: Bilirubin Negative (Negative); Blood, Urine Negative (Negative); Clarity CLEAR (Clear); Glucose, Urine (Dipstick) Negative (Negative); Leukocyte Moderate (Negative); Nitrite Negative (Negative); Protein, Urine (Dipstick) Negative (Neg-Trace); Specific Gravity, Urine 1.005 (1.002-1.036); Urobilinogen 0.2 mg/dL (0.2-1.0); pH, Urine 6.5 (5.0-9.0)
[2017-11-03 00:54] LABS: Bacteria/HPF Rare-Few HPF (None Seen); Hyaline Casts/LPF NONE SEEN LPF (0-3 Hyaline); RBC/HPF 0-3 HPF (0-3); Squamous Epithelial 0-3 HPF (0-3)
[2017-11-03] MEDS ORDERED: Ondansetron ODT 4 MG TAB ONE (01:14)
[2017-11-03] MEDS ORDERED: Acetaminophen 500 MG TAB ONE (01:14)
[2017-11-03] MEDS ORDERED: Ibuprofen 800 MG TAB ONE (01:14)
--- NOTE | 2017-11-03 09:56 | CT ---
PRELIMINARY REPORT/[facility]/EMERGENTY AFTER-HOURS PROCEDURE CT Head Without Intravenous Contrast CLINICAL HISTORY: 72 years old, female; Pain; Headache; Patient HX: History provided by patient, f72 presents to ed for abdominal and a headache. Pt reports her SX began 24 hrs ago. TECHNIQUE: Axial computed tomography images of the head/brain without intravenous contrast. COMPARISON: No relevant prior studies available. FINDINGS: Mild cerebral volume loss. Chronic small vessel disease. No intracranial hemorrhage or hydrocephalus. No mass, mass effect or midline shift. No effacement of the ventricles, cortical sulci and basal cisterns. Aguayo-white matter differentiation is preserved. No dense MCA sign. Orbits are unremarkable. Paranasal sinuses are clear. Mastoid air cells are clear. No acute fracture. Soft tissues unremarkable. IMPRESSION: No acute intracranial abnormality. Thank you for allowing us to participate in the care of your patient. Dictated and Authenticated by: Joseluis Garcia MD 11/03/2017 1:40 AM Central Time ([place] & [place]) FINAL REPORT HEAD CT WITHOUT CONTRAST: Date: 11/03/17 COMPARISON: 07/06/17. HISTORY: Headaches, pain. FINDINGS: I agree with the preliminary report given by vRnel. The imaged paranasal sinuses and mastoid air cells are well aerated. There is no displaced calvarial fracture. No intracranial hemorrhage, midline shif t, or mass effect is seen. IMPRESSION: No acute findings. POS: [facility]
== END 2017-11-03 01:30 | disposition home or self-care (01) ==
LOC: ERS 23:02
DX: R51 Headache (principal); E78.5 Hyperlipidemia, unspecified; M06.9 Rheumatoid arthritis, unspecified; F17.220 Nicotine dependence, chewing tobacco, uncomplicated; Z79.899 Other long term (current) drug therapy; Z79.82 Long term (current) use of aspirin
CPT/HCPCS: 36415; 70450; 80053; 81003; 81015; 83605; 83690; 85025; Q0162

== ENCOUNTER 2017-12-16 17:46 | Emergency (ER) | payer MEDICARE, OTHER ==
--- NOTE | 2017-12-16 18:33 | RAD ---
CHEST ONE VIEW: 12/16/17 HISTORY: Chest pain. COMPARISON: Chest radiograph 07/29/17. FINDINGS: Lungs are without focal air space consolidation, pneumothorax or effusion. Advanced degenerative changes of both glenohumeral joints. Bilateral rotator cuff arthropathy. IMPRESSION: No acute intrathoracic abnormality. POS: [facility]
[2017-12-16 18:46] LABS: #Basophils 0.1 thou/uL (0.0-0.2); #Eosinphils 0.3 thou/uL (0.0-0.7); #Lymphocytes 1.9 thou/uL (1.20-3.40); #Monocytes 0.5 thou/uL (0.11-0.59); #Neutrophils 3.5 thou/uL (1.40-6.50); %Basophils 1.4 % (0.0-1.0); %Eosinophils 5.1 % (0.0-10.0); %Monocytes 8.2 % (0.0-10.0); %Neutrophils 55.4 % (42.0-75.0); Hemoglobin 11.9 g/dL (12.0-16.0); Mean Corpuscular HGB CONC 34.8 g/dL (32.0-36.0); Mean Corpuscular Volume 97.7 fL (78.0-98.0); Mean Platelet Volume 7.8 fL (7.4-10.4); Platelet Count 224 thou/uL (130-400); RBC Distribution Width 12.4 % (11.5-14.5); Red Blood Cell (RBC) Count 3.51 mill/uL (4.20-5.40); White Blood Cell (WBC) Count 6.3 thou/uL (4.8-10.8)
[2017-12-16 19:12] LABS: CKMB 2.9 ng/mL (0-6.6); Troponin I Less than 0.010 ng/mL (< 0.028)
[2017-12-16 20:50] LABS: ALT (SGPT) 16 U/L (8-55); AST (SGOT) 23 U/L (5-34); Albumin 3.9 g/dL (3.4-4.8); Alkaline Phosphatase 128 U/L (40-150); Anion Gap 10 mmol/L (10-20); BUN (Urea Nitrogen) 12 mg/dL (9.8-20.1); Bilirubin, Total 0.5 mg/dL (0.2-1.2); CK (CPK) 245 U/L (29-168); Calc. Creatinine Clearance 0 mL/min (70-130); Calcium 9.4 mg/dL (7.8-10.44); Carbon Dioxide 27 mmol/L (23-31); Chloride 101 mmol/L (98-107); Estimated GFR-MDRD 58; Globulin 3.8 g/dL (2.4-3.5); Glucose 289 mg/dL (80-115); Potassium 3.7 mmol/L (3.5-5.1); Protein, Total 7.7 g/dL (6.0-8.3); Sodium 134 mmol/L (136-145)
--- NOTE | 2017-12-19 11:37 | EKG ---
Test Reason : Blood Pressure : / mmHG Vent. Rate : 070 BPM Atrial Rate : 070 BPM P-R Int : 000 ms QRS Dur : 084 ms QT Int : 408 ms P-R-T Axes : 000 012 020 degrees QTc Int : 440 ms Accelerated Junctional rhythm Minimal voltage criteria for LVH, may be normal variant Abnormal ECG Confirmed by NAN MONTANEZ DO ([id number]), graphic editor JULIUS DHALIWAL ([id number]) on 12/19/2017 11:36:51 AM Referred By: Confirmed By:NAN MONTANEZ DO
== END 2017-12-16 21:40 | disposition home or self-care (01) ==
LOC: ERS 17:46
DX: I10 Essential (primary) hypertension (principal); E78.5 Hyperlipidemia, unspecified; F17.220 Nicotine dependence, chewing tobacco, uncomplicated
CPT/HCPCS: 36415; 71045; 80053; 82550; 82553; 83880; 84484; 85025; 93005; 94760

== ENCOUNTER 2018-01-14 22:02 | Emergency (ER) | payer MEDICARE, MEDICAID ==
[2018-01-14] MEDS ORDERED: Ondansetron ODT 4 MG TAB ONE (22:24)
[2018-01-14 22:40] LABS: #Basophils 0.1 thou/uL (0.0-0.2); #Eosinphils 0.3 thou/uL (0.0-0.7); #Lymphocytes 2.1 thou/uL (1.20-3.40); #Monocytes 0.5 thou/uL (0.11-0.59); #Neutrophils 3.9 thou/uL (1.40-6.50); %Basophils 1.1 % (0.0-1.0); %Eosinophils 4.3 % (0.0-10.0); %Lymphocytes 30.2 % (21.0-51.0); %Monocytes 7.6 % (0.0-10.0); %Neutrophils 56.7 % (42.0-75.0); Hemoglobin 12.1 g/dL (12.0-16.0); Mean Corpuscular Hemoglobin 32.5 pg (27.0-31.0); Mean Corpuscular Volume 98.7 fL (78.0-98.0); Mean Platelet Volume 7.7 fL (7.4-10.4); Platelet Count 182 thou/uL (130-400); RBC Distribution Width 12.5 % (11.5-14.5); Red Blood Cell (RBC) Count 3.73 mill/uL (4.20-5.40); White Blood Cell (WBC) Count 6.8 thou/uL (4.8-10.8)
[2018-01-14 23:01] LABS: Troponin I 0.013 ng/mL (< 0.028)
--- NOTE | 2018-01-14 23:07 | RAD ---
CHEST ONE VIEW: 01/14/18 HISTORY: Nausea. COMPARISON: Chest radiograph 12/16/17. FINDINGS: Lungs are clear. No pneumothorax or effusion. Cardiac silhouette and mediastinal contours are within normal limits. Advanced degenerative changes of both glenohumeral joints. Bilateral rotator cuff arth ropathy. IMPRESSION: No acute intrathoracic abnormality. POS: [facility]
[2018-01-14 23:20] LABS: ALT (SGPT) 16 U/L (8-55); AST (SGOT) 38 U/L (5-34); Anion Gap 18 mmol/L (10-20); Bilirubin, Total 0.7 mg/dL (0.2-1.2); Calc. Creatinine Clearance 0 mL/min (70-130); Calcium 9.2 mg/dL (7.8-10.44); Carbon Dioxide 16 mmol/L (23-31); Chloride 108 mmol/L (98-107); Estimated GFR-MDRD 54; Lipase 25 U/L (8-78); Potassium 4.8 mmol/L (3.5-5.1); Sodium 137 mmol/L (136-145)
[2018-01-14 23:22] LABS: Alkaline Phosphatase 77 U/L (40-150); BUN (Urea Nitrogen) 17 mg/dL (9.8-20.1); Glucose 100 mg/dL (80-115)
[2018-01-15] LABS: Bilirubin Negative (Negative); Blood, Urine Negative (Negative); Clarity CLEAR (Clear); Glucose, Urine (Dipstick) Negative (Negative); Leukocyte Small (Negative); Nitrite Negative (Negative); Protein, Urine (Dipstick) Negative (Neg-Trace); Specific Gravity, Urine 1.005 (1.002-1.036)
[2018-01-15 00:03] LABS: Bacteria/HPF None Seen HPF (None Seen); Hyaline Casts/LPF 0-3 HYALINE CAST LPF (0-3 Hyaline); RBC/HPF 0-3 HPF (0-3); Squamous Epithelial None Seen HPF (0-3)
--- NOTE | 2018-01-16 10:54 | EKG ---
Test Reason : Blood Pressure : / mmHG Vent. Rate : 056 BPM Atrial Rate : 056 BPM P-R Int : 198 ms QRS Dur : 090 ms QT Int : 458 ms P-R-T Axes : 081 003 174 degrees QTc Int : 441 ms Sinus bradycardia Moderate voltage criteria for LVH, may be normal variant T wave abnormality, consider inferior ischemia T wave abnormality, consider anterolateral ischemia Abnormal ECG Confirmed by PRABHJOT LOYA, RADHA ([id number]), scientific editor MERRICK STEPHENS ([id number]) on 01/16/2018 10:53:14 AM Referred By: Confirmed By:RADHA RICK MD
== END 2018-01-15 00:29 | disposition home or self-care (01) ==
LOC: ERS 22:02
DX: N30.00 Acute cystitis without hematuria (principal); E78.5 Hyperlipidemia, unspecified; M06.9 Rheumatoid arthritis, unspecified; F17.220 Nicotine dependence, chewing tobacco, uncomplicated
CPT/HCPCS: 36415; 71045; 80053; 81003; 81015; 83690; 84484; 85025; 93005; Q0162

== ENCOUNTER 2018-01-15 17:30 | Emergency (ER) | payer MEDICARE, OTHER ==
[2018-01-15 17:59] LABS: Bilirubin Negative (Negative); Blood, Urine Negative (Negative); Clarity CLEAR (Clear); Glucose, Urine (Dipstick) Negative (Negative); Leukocyte Trace (Negative); Nitrite Negative (Negative); Protein, Urine (Dipstick) Negative (Neg-Trace); Specific Gravity, Urine 1.004 (1.002-1.036)
[2018-01-15 18:05] LABS: Bacteria/HPF None Seen HPF (None Seen); Hyaline Casts/LPF 0-3 HYALINE CAST LPF (0-3 Hyaline); RBC/HPF 0-3 HPF (0-3); Squamous Epithelial 0-3 HPF (0-3); WBC/HPF 0-3 HPF (0-3)
--- NOTE | 2018-01-15 19:07 | RAD ---
PORTABLE AP CHEST X-RAY 01/15/18 HISTORY: Chest pain and dizziness. COMPARISON: 01/14/18. FINDINGS: The cardiac silhouette is magnified by projection and stable in size from prior study. The pulmonary vasculature is within normal limits. The lungs are clear. There is bilateral glenohumeral osteoarthro shane with bilateral acromioclavicular joint osteoarthritis. There is also suggestion of narrowing of each subacromial space which could be related to chronic rotator cuff tears. Chest is overall stable from the prior exam. IMPRESSION: Stable chest without evidence of an acute cardiopulmonary process. POS: [facility]
[2018-01-15 19:10] LABS: #Eosinphils 0.3 thou/uL (0.0-0.7); #Monocytes 0.4 thou/uL (0.11-0.59); #Neutrophils 3.6 thou/uL (1.40-6.50); %Basophils 0.8 % (0.0-1.0); %Eosinophils 4.5 % (0.0-10.0); %Lymphocytes 31.2 % (21.0-51.0); %Monocytes 6.9 % (0.0-10.0); %Neutrophils 56.6 % (42.0-75.0); Hemoglobin 12.4 g/dL (12.0-16.0); Mean Corpuscular Hemoglobin 33.7 pg (27.0-31.0); Platelet Count 186 thou/uL (130-400); RBC Distribution Width 12.5 % (11.5-14.5); Red Blood Cell (RBC) Count 3.69 mill/uL (4.20-5.40); White Blood Cell (WBC) Count 6.3 thou/uL (4.8-10.8)
[2018-01-15 19:31] LABS: ALT (SGPT) 15 U/L (8-55); AST (SGOT) 25 U/L (5-34); Alkaline Phosphatase 86 U/L (40-150); Anion Gap 13 mmol/L (10-20); BUN (Urea Nitrogen) 15 mg/dL (9.8-20.1); Bilirubin, Total 0.6 mg/dL (0.2-1.2); Calc. Creatinine Clearance 0 mL/min (70-130); Calcium 9.1 mg/dL (7.8-10.44); Carbon Dioxide 24 mmol/L (23-31); Chloride 105 mmol/L (98-107); Estimated GFR-MDRD 45; Globulin 3.7 g/dL (2.4-3.5); Glucose 122 mg/dL (80-115); Potassium 3.7 mmol/L (3.5-5.1); Protein, Total 7.7 g/dL (6.0-8.3); Sodium 138 mmol/L (136-145)
[2018-01-15 19:33] LABS: CKMB 3.4 ng/mL (0-6.6); Troponin I Less than 0.010 ng/mL (< 0.028)
--- NOTE | 2018-01-20 13:34 | EKG ---
Test Reason : Blood Pressure : / mmHG Vent. Rate : 054 BPM Atrial Rate : 054 BPM P-R Int : 190 ms QRS Dur : 096 ms QT Int : 474 ms P-R-T Axes : 088 031 206 degrees QTc Int : 449 ms Sinus bradycardia T wave abnormality, consider inferior ischemia new since 16-DEC-2017 T wave abnormality, consider anterolateral ischemia Abnormal ECG Confirmed by BENNETT LOYA, NEFTALY ([id number]), multimedia editor MERRICK STEPHENS ([id number]) on 01/20/2018 1:34:40 PM Referred By: Confirmed By:NEFTALY GUAJARDO MD
== END 2018-01-15 20:01 | disposition home or self-care (01) ==
LOC: ERS 17:30
DX: R55 Syncope and collapse (principal); R53.1 Weakness; E78.5 Hyperlipidemia, unspecified; F17.210 Nicotine dependence, cigarettes, uncomplicated
CPT/HCPCS: 36415; 71045; 80053; 81003; 82553; 83880; 84484; 85025; 93005

== ENCOUNTER 2018-04-07 20:50 | Observation (INO) | payer MEDICARE, MEDICAID ==
[2018-04-07 21:37] LABS: #Basophils 0.1 thou/uL (0.0-0.2); #Eosinphils 0.3 thou/uL (0.0-0.7); #Lymphocytes 1.8 thou/uL (1.20-3.40); #Monocytes 0.6 thou/uL (0.11-0.59); #Neutrophils 4.8 thou/uL (1.40-6.50); %Eosinophils 3.4 % (0.0-10.0); %Lymphocytes 24.4 % (21.0-51.0); %Monocytes 7.4 % (0.0-10.0); %Neutrophils 63.8 % (42.0-75.0); Hemoglobin 11.7 g/dL (12.0-16.0); Mean Corpuscular HGB CONC 30.7 g/dL (32.0-36.0); Mean Corpuscular Hemoglobin 30.9 pg (27.0-31.0); Mean Platelet Volume 7.4 fL (7.4-10.4); Platelet Count 247 thou/uL (130-400); RBC Distribution Width 13.2 % (11.5-14.5); Red Blood Cell (RBC) Count 3.78 mill/uL (4.20-5.40); White Blood Cell (WBC) Count 7.5 thou/uL (4.8-10.8)
--- NOTE | 2018-04-07 21:48 | RAD ---
AP VIEW CHEST: 04/07/18 HISTORY: Dyspnea. AP view chest obtained on 04/07/18. Comparison made to previous exam from 01/15/18. AP view chest demonstrates some calcification seen surrounding the left shoulder bursa. Degenerative changes see in the left shoulder joint. Some osteoarthritic changes also seen in the right shoulder joint. The lungs are well aerated. No evidence of acute intrathoracic abnormality is seen. No evidence of ef fusions, pneumonia or pneumothorax seen. IMPRESSION: Unremarkable AP view chest. POS: [facility]
[2018-04-07 22:00] LABS: ALT (SGPT) 8 U/L (8-55); AST (SGOT) 18 U/L (5-34); Alkaline Phosphatase 71 U/L (40-150); Anion Gap 11 mmol/L (10-20); BUN (Urea Nitrogen) 11 mg/dL (9.8-20.1); Bilirubin, Total 0.5 mg/dL (0.2-1.2); CK (CPK) 224 U/L (29-168); Calc. Creatinine Clearance 0 mL/min (70-130); Calcium 9.9 mg/dL (7.8-10.44); Carbon Dioxide 26 mmol/L (23-31); Chloride 103 mmol/L (98-107); Estimated GFR-MDRD 56; Globulin 3.9 g/dL (2.4-3.5); Glucose 116 mg/dL (80-115); Protein, Total 7.9 g/dL (6.0-8.3); Sodium 136 mmol/L (136-145)
[2018-04-07 22:19] LABS: CKMB 2.9 ng/mL (0-6.6); Troponin I Less than 0.010 ng/mL (< 0.028)
[2018-04-07] MEDS ORDERED: Aspirin 325 MG TAB ONE (22:27)
[2018-04-08] MEDS ORDERED: Acetaminophen 325 MG TAB PO PRN (00:01)
[2018-04-08] MEDS ORDERED: Ondansetron PF 4 MG/2 ML Vial IVP PRN (00:01)
[2018-04-08] MEDS ORDERED: Nitroglycerin 0.4 MG TAB (25 Tab Bottle) SL PRN (00:03)
[2018-04-08] MEDS ORDERED: Ondansetron ODT 4 MG TAB SL PRN (00:04)
[2018-04-08 00:49] VITALS: BMI 39.7
[2018-04-08 01:58] LABS: Troponin I Less than 0.010 ng/mL (< 0.028)
[2018-04-08 06:16] LABS: Troponin I Less than 0.010 ng/mL (< 0.028)
[2018-04-08 08:14] VITALS: TEMP 97.6
[2018-04-08] MEDS ORDERED: Dextrose 5% in Water 1,000 ML IV PRN (10:28)
[2018-04-08] MEDS ORDERED: HumaLOG 300 UNITS/3 ML VIAL SC PRN (10:28)
[2018-04-08] MEDS ORDERED: Dextrose 50% Abboject 50 ML SYRINGE SLOW IVP PRN (10:28)
--- NOTE | 2018-04-08 10:35 | PDOC.FPRHP ---
- History of Present Illness Chief Complaint: CP History of Present Illness: This patient was originally brought in to hospital under [facility] service. Family Medicine team was called at 9:20am on 04/08/2018 and was seen by our team at 9: 50am that same day. Cardiology was consulted by 10:05am. This is a 72yo F with pmh of CAD presenting with 1 day hx of CP. Onset was yesterday evening while sitting in chair watching TV. Substernal and tight in nature, was exacerbated by getting out of chair and moving around house. No radiation, no diaphoresis or SOB. Of note pt reportedly had cath done in 2016 by [facility] which was reportedly normal. Pt was also recommended to have cath done 3 months ago but refused evaluation. Pt is now receptive to catheterization with this new CP. ED Course: trop neg x3 - Allergies/Adverse Reactions Allergies Allergy/AdvReac Type Severity Reaction Status Date / Time No Known Drug Allergies Allergy Verified 03/09/16 01:03 - Home Medications Medication Instructions Recorded Confirmed Type Aspirin [Aspirin EC] 81 mg PO DAILY #30 tablet. 07/30/17 04/08/18 Rx Atorvastatin Calcium [Lipitor] 40 mg PO HS 07/30/17 04/08/18 History Cyanocobalamin (Vitamin B-12) 1,000 mcg PO DAILY 07/30/17 04/08/18 History [Vitamin B-12] Aspirin [Ecotrin Low Strength] 81 mg PO DAILY tab 04/08/18 Rx Omeprazole 40 mg PO DAILY 04/08/18 04/08/18 History sitaGLIPtin Phos/metFORMIN HCl 1 each PO BID 04/08/18 04/08/18 History [Janumet 50-1,000 mg Tablet] - History PMHx: CAD, no other cardiac hx, DM, HLD PSHx: hysterectomy 1995, tubal ligation in 1970s FHx: 2 brothers from [place] in their 60s Social: denies etoh/tobacco/drugs - Review of Systems General: denies: fever/chills, fatigue Eyes: denies: eye pain, vision changes ENT: denies: nasal congestion, rhinorrhea Respiratory: denies: cough, congestion, shortness of breath Cardiovascular: reports: chest pain. denies: palpitation Gastrointestinal: denies: nausea, vomiting Genitourinary: denies: dysuria Skin: denies: rashes, lesions Musculoskeletal: reports: pain (per hpi). denies: tenderness, stiffness Neurological: denies: syncope, seizure Psychological: denies: anxiety, depression - Vital signs BP: [115/71] HR: [60] RR: [20] Tmax: [97.6] Pox: [100]% on [ra] Wt: [111kg] - Physical Exam Constitutional: NAD, awake, alert and oriented HEENT: normocephalic and atraumatic, EOMI, grossly normal vision, grossly normal hearing, MMM Neck: supple, no JVD Chest: other (marked reproducible pain on palpation of sternum and R pectoral mucle) Heart: RRR, normal S1/S2 Lungs: CTAB, no respiratory distress Abdomen: soft, non-tender Musculoskeletal: normal structure, normal tone Neurological: no focal deficit, normal sensation Skin: no rash/lesions, capillary refill <2 seconds Heme/Lymphatic: no purpura, no petechia, other (bilateral LE edema, non pitting (chronic since hysterectomy)) Psychiatric: normal mood and affect, good judgment and insight FMR H&P: Results - Labs Result Diagrams: 04/07/18 21:30 04/07/18 21:30 Lab results: WBC 7.5 thou/uL (4.8-10.8) 04/07/18 21:30 Hgb 11.7 g/dL (12.0-16.0) L 04/07/18 21:30 Hct 37.9 % (36.0-47.0) 04/07/18 21: MCV 100.0 fL (78.0-98.0) H 04/07/18 21:30 Plt Count 247 thou/uL (130-400) 04/07/18 21:30 Neutrophils % 63.8 % (42.0-75.0) 04/07/18 21:30 Sodium 136 mmol/L (136-145) 04/07/18 21:30 Potassium 4.0 mmol/L (3.5-5.1) 04/07/18 21:30 Chloride 103 mmol/L (98-107) 04/07/18 21:30 Carbon Dioxide 26 mmol/L (23-31) 04/07/18 21:30 BUN 11 mg/dL (9.8-20.1) 04/07/18 21:30 Creatinine 1.15 mg/dL (0.6-1.1) H 04/07/18 21:30 Glucose 116 mg/dL (80-115) H 04/07/18 21:30 Calcium 9.9 mg/dL (7.8-10.44) 04/07/18 21:30 Total Bilirubin 0.5 mg/dL (0.2-1.2) 04/07/18 21:30 AST 18 U/L (5-34) 04/07/18 21:30 ALT 8 U/L (8-55) 04/07/18 21:30 Alkaline Phosphatase 71 U/L (40-150) 04/07/18 21: Creatine Kinase 224 U/L (29-168) H 04/07/18 21:30 CK-MB (CK-2) 2.9 ng/mL (0-6.6) 04/07/18 21: B-Natriuretic Peptide 13.4 pg/mL (0-100) 04/07/18: Serum Total Protein 7.9 g/dL (6.0-8.3) 04/07/18 21: Albumin 4.0 g/dL (3.4-4.8) 04/07/18 21:30 FMR H&P: A/P - Problem List (1) Unstable angina Status: Acute (2) Diabetes Status: Acute Code(s): E11.9 - TYPE 2 DIABETES MELLITUS WITHOUT COMPLICATIONS (3) HLD (hyperlipidemia) Status: Acute Code(s): E78.5 - HYPERLIPIDEMIA, UNSPECIFIED Qualifiers: Hyperlipidemia type: unspecified Qualified Code(s): E78.5 - Hyperlipidemia , unspecified - Plan Typical Chest Pain A- Pt having typical cp and is concerning for CAD given history. reports recs for repeat cath 3 months ago which was refused. Trops neg x3, No evidence of acute ischemia noted on EKG. It is also reassuring that pain was markedly reproducible P- TSH, FLP, and A1c - Cont. w/ ASA and statin - Will consult cardiology for further recommendations in regards to stress vs cath HTN A- controlled on current regimen P- hold Beta nivia pending cards recs for possible stress vs cath DM A- reports hx of DM P- A1c - Cont. home Januvia - Mild SSI and AC/HS accuchecks HLD - Will obtain FLP - Cont. w/ high intensity statin CODE STATUS: Full Code PPx: Lovenox Diet: NPO FMR H&P: Upper Level - Pertinent history 72 y/o F w/ PMHx of HTN, HLD, and DM presents for evaluation of substernal chest tightness which started around 1800 last night. Patient reports that pain continued to get worse and was exacerbated by exertion and improved w/ rest causing her to come to the ER for evaluation. Denies any radiation of pain but reports associated SOB with this pain. States she was not given any nitro in the ER so is unable to comment if this improved her pain. Patient was admitted for similar sxs 07/2017 and was evaluated by cardiology w/ recommendations for cardiac catheterization at this point in time. Patient refused this procedure in July and was discharged home w/ outpatient follow-up. Patient also reportedly had a cardiac cath in 2015 at [facility] which was negative per 07/30/17 discharge summary. Last stress performed 03/09 as well which was negative for fixed or reversible defect. Echo from 03/09 showing normal LV function and EF 50 -55%. Pt reports that her two brothers of heart attacks in their 60s. Of note, patient was initially admitted to [facility] from the ER on 04/07 at 1300 per the admission orders. [facility] was contacted by 2SW at 0920 stating that [facility] notified them that the patient sees Dr. Trujillo and was incorrectly admitted to the [facility] group and asking [facility] to take over care. At this time, patient had not been seen by [facility]. Patient was evaluated at 0950 on 04/08 and cardiology consulted at 1005 for further evaluation. - Pertinent findings GEN: NAD, resting in bed comfortably CARDS: RRR, no murmur, rub, or gallop. Pain reproducible to palpation sternum and medial R-pectoral PULM: CTA-B/L, no rhonci, rales, or wheezes GI: Soft, NTTP, no rigidity, rebound, or guarding, BSx4 EXT: Non-pitting edema L-LE at baseline per patient. No erythema. No palpable cords EKG T-wave inversions V2-V6 which is unchanged from 08/[address]-segment changes noted Trop-I Negative x 3 - Plan Date/Time: 04/08/18 1033 Hanane BMegha Ferrera MD have evaluated this patient and agree with findings/plan as outlined by internal affairs commander resident. Pertinent changes/additions are listed here. 72 y/o F w/: 1. Typical Chest Pain - Patient w/ hx concerning for UA w/ pain onset at rest and worse w/ exertion associated w/ SOB. Multiple risk factors for CAD and now second hospitalization for similar sxs this year. Last cath 2 years ago at [facility] which was reportedly normal and pt refused plan for repeat cath back in July. - Will check TSH, FLP, and A1c - No evidence of acute ischemia noted on EKG or cardiac enzymes obtained overnight - Pain was reproducible on exam, but cannot r/o cardiac involvement at this time in setting of multiple hospitalizations and numerous risk factors for disease - Cont. w/ ASA and statin - Will consult cardiology for further recommendations in regards to stress vs cath as patient is agreeable to having a cath performed at this time 2. HTN - Controlled on current regimen. Hold Beta nivia pending cards recs for possible stress vs cath 3. DM - Check A1c - Cont. w/ Januvia - Mild SSI and AC/HS accuchecks 4. HLD - Will obtain FLP - Cont. w/ high intensity statin CODE STATUS: Full Code PPx: Lovenox Diet: NPO Assessment and Plan Discussed w/ Dr. Chambers who is in agreement Attending Addendum - Attending Addendum Date/Time: 04/08/18 1028 I personally evaluated the patient and discussed the management with Dr. Valera. I agree with the History, Examination, Assessment and Plan documented above with any addition or exceptions noted below. The patient presented to the hospital with substernal chest pain associated with shortness of breath at rest that worsened when walking around yesterday afternoon. Pt admitted to [facility] however she wasn't seen and care was transferred to us this morning because PCP was Dr. Trujillo. She had a hospitalization a few months ago for chest pain that a cath was recommended but she declined. On exam pt's chest pain is reproducible to palpation. CE negative x 3. T-wave inversions on EKG stable from prior admission. Will consult cardiology to see if they would want to cath her.
[2018-04-08 11:00] LABS: Hemoglobin A1c 6.2 % (4.0-6.0)
[2018-04-08 11:10] LABS: Cardiac Risk 2.6 (Less than 4.5)
[2018-04-08 12:04] VITALS: BP 116/59
--- NOTE | 2018-04-08 13:42 | CON ---
DATE OF CONSULTATION: 04/08/2018 REASON FOR CONSULTATION: Chest pain. PRIMARY FULL DECATOR OPERATOR: Remedios Lopez M.D. HISTORY OF PRESENT ILLNESS: Ms. Sparks is a very pleasant 72-year-old -[place] female who com es to the hospital for chest pain. She states that her neighbor cooks things and fumes come down int o her apartment and she inhales them and she does not like the way she feels after that. At this juan a e, she states she started having chest tightness after she ingested some of the smoke coming from the apartment above her. She has had several admissions for chest pain in the past. Back in 2016, she was at the [facility] here in [place] and had a heart catheterization by __ ___ and was found to have normal coronary arteries. She has continued to have several episodes of mandy st pain. Currently, she is chest pain free. PAST MEDICAL HISTORY: 1. Multiple episodes of chest pain with normal left heart catheterization in 2016. 2. Hyperlipidemia. 3. Gastroesophageal reflux disease. 4. Type 2 diabetes. PAST SURGICAL HISTORY: 1. Hysterectomy in 1995. 2. Tubal ligation in 1969. FAMILY HISTORY: Two brothers of MIs in their 60s. SOCIAL HISTORY: No alcohol, tobacco or drugs. REVIEW OF SYSTEMS: A 12-point review of systems was done and is all negative unless stated in the hi story of present illness. OUTPATIENT MEDICATIONS: 1. Aspirin 81 a day. 2. Lipitor 40 mg at bedtime. 3. Vitamin B12. 4. Omeprazole 40 mg a day. 5. Sitagliptin/metformin b.i.d. PHYSICAL EXAMINATION: VITAL SIGNS: Temperature 97.6, pulse 54, respiration rate 20, satting 100% on room air, blood pressu re 116/59. GENERAL: Awake, alert, oriented x3, in no distress. HEENT: Normocephalic, atraumatic. NECK: Supple. LUNGS: Lungs are clear. CARDIOVASCULAR: S1, S2, no S3, S4, no murmurs or rubs. The mid sternal area is exquisitely tender o n palpation and this is consistent with her episodes of chest pain. ABDOMEN: Soft, positive bowel sounds. EXTREMITIES: No edema. SKIN: Warm and dry. LABORATORY WORK: Reviewed. CBC is unremarkable except for hemoglobin 11.7. MCV was 100, little bit high. Chemistries are unremarkable except for creatinine 1.15, GFR is 56. Troponin is undetectable x3. Triglycerides of 54, cholesterol total of 115, LDL of 60 and HDL of 44. EKG was reviewed, no ischemic changes. Chest x-ray was unremarkable. ASSESSMENT AND PLAN: 1. Chest pain: Most likely musculoskeletal. This is reproducible and she has continued to have thi s pain for several years and she has had a completely normal heart catheterization in 05/2015. We wo uld only do a heart catheterization if she has elevated troponins. 2. Should be able to be discharged home from the cardiac perspective at any point. Thank you for letting us participate in the care of your patient. We will follow.
[2018-04-08] MEDS ORDERED: Atorvastatin Calcium 10 MG TAB PO SCH (21:00)
--- NOTE | 2018-04-09 01:07 | DIS-2 ---
DATE OF ADMISSION: 04/08/2018 DATE OF DISCHARGE: 04/08/2018 RESIDENT: Wyatt Valera. ADMITTING ATTENDING: Sara Chambers M.D. DISCHARGE ATTENDING: Sara Chambers M.D. CONSULTATION: Cardiology. PROCEDURES: On 04/07/2018, chest x-ray, impression: Unremarkable AP view chest. PRIMARY DIAGNOSIS: Atypical chest pain secondary to musculoskeletal etiology. SECONDARY DIAGNOSES: Diabetes mellitus, coronary artery disease history, hyperlipidemia. DISCHARGE MEDICATIONS: 1. Atorvastatin 40 mg p.o. at bedtime. 2. Vitamin B12 1000 mcg p.o. daily. 3. Aspirin 81 mg p.o. daily. 4. Omeprazole 40 mg p.o. daily. 5. Sitagliptin, Janumet, metformin 1 each p.o. b.i.d. DISCONTINUED MEDICATIONS: None. HISTORY OF PRESENT ILLNESS AND HOSPITAL COURSE: This is a 72-year-old female with past medical history of coronary artery disease, presenting to the ED for evaluation of chest pain. The patient was seen in the ED near midnight on 04/07 and was initially brought into the hospital under the [facility]. However, in the morning, hospital staff realized patient was one of MDs whom the [facility] Family Medicine team admits for. [facility] Family Medicine team was called around 8:20 a.m. and evaluated the patient at 8:50 a.m. and promptly consulted Cardiology within 10-20 minutes. The patient reported her pain was substernal with exacerbation on exertion and overall described atypical chest pain picture; however, had troponins x3 were negative. She also described a history of catheterization in 2016, which was reportedly normal at [facility] and recommendations for repeat catheterization 3 months ago which she refused evaluation due to the patient's history of catheterization and recommendations. Cardiology was consulted who after evaluating the patient did not recommend any inpatient intervention at this time. The patient was deemed stable for discharge as pain was found to be markedly reproducible on exam and the patient was clinically improved and the patient was discharged home with instructions for PCP follow up as well as Cardiology followup. DISPOSITION: Stable. DISCHARGE INSTRUCTIONS: 1. Location: Home. 2. Diet: Heart healthy. 3. Activity: As tolerated. 4. Follow up with primary care provider and Cardiology. HEATH
[2018-04-09] MEDS ORDERED: metFORMIN 500 MG TAB PO SCH (08:00)
[2018-04-09] MEDS ORDERED: Aspirin 81 mg Enteric Coated Tablet PO SCH (09:00)
[2018-04-09] MEDS ORDERED: Enoxaparin Sodium 30 MG/0.3 ML SYRINGE SC SCH (09:00)
[2018-04-09] MEDS ORDERED: Alogliptin 6.25 MG TAB PO SCH (09:00)
--- NOTE | 2018-04-09 17:50 | EKG ---
Test Reason : CHEST PAIN Blood Pressure : / mmHG Vent. Rate : 082 BPM Atrial Rate : 082 BPM P-R Int : 154 ms QRS Dur : 084 ms QT Int : 386 ms P-R-T Axes : 050 019 169 degrees QTc Int : 450 ms Normal sinus rhythm T wave abnormality, consider inferolateral ischemia Abnormal ECG Confirmed by LENO ZEE ([id number]), newspaper copy editor MERRICK STEPHENS ([id number]) on 04/09/2018 5:49:12 PM Referred By: Confirmed By:LENO ZEE
== END 2018-04-08 14:23 | disposition home or self-care (01) ==
LOC: ERS 20:50 → 2SW 04-08 00:34
PROVIDERS: ADMIT Internal Medicine; ATTEND Internal Medicine
DX: R07.89 Other chest pain (principal); I25.110 Atherosclerotic heart disease of native coronary artery with unstable angina pectoris; E11.9 Type 2 diabetes mellitus without complications; E78.5 Hyperlipidemia, unspecified; K21.9 Gastro-esophageal reflux disease without esophagitis; Z79.82 Long term (current) use of aspirin; Z79.899 Other long term (current) drug therapy
CPT/HCPCS: 71045; 80053; 80061; 82550; 82553; 82962; 83036; 83880; 84443; 84484 ×3; 85025; 93005; 99285; G0378 ×2; 36415; 36416

== ENCOUNTER 2018-06-23 23:54 | Emergency (ER) | payer MEDICARE, OTHER ==
[2018-06-24 01:08] LABS: #Basophils 0.1 thou/uL (0.0-0.2); #Eosinphils 0.3 thou/uL (0.0-0.7); #Lymphocytes 1.5 thou/uL (1.20-3.40); #Monocytes 0.4 thou/uL (0.11-0.59); #Neutrophils 4.5 thou/uL (1.40-6.50); %Basophils 1.3 % (0.0-1.0); %Eosinophils 4.6 % (0.0-10.0); %Lymphocytes 21.6 % (21.0-51.0); %Monocytes 6.5 % (0.0-10.0); %Neutrophils 65.9 % (42.0-75.0); Hemoglobin 10.7 g/dL (12.0-16.0); Mean Corpuscular HGB CONC 32.5 g/dL (32.0-36.0); Mean Corpuscular Hemoglobin 32.9 pg (27.0-31.0); Mean Platelet Volume 7.7 fL (7.4-10.4); Platelet Count 225 thou/uL (130-400); RBC Distribution Width 13.6 % (11.5-14.5); Red Blood Cell (RBC) Count 3.27 mill/uL (4.20-5.40); White Blood Cell (WBC) Count 6.8 thou/uL (4.8-10.8)
[2018-06-24 01:29] LABS: ALT (SGPT) 12 U/L (8-55); AST (SGOT) 23 U/L (5-34); Albumin 3.7 g/dL (3.4-4.8); Alkaline Phosphatase 63 U/L (40-150); Anion Gap 14 mmol/L (10-20); BUN (Urea Nitrogen) 11 mg/dL (9.8-20.1); Bilirubin, Total 0.4 mg/dL (0.2-1.2); Calc. Creatinine Clearance 0 mL/min (70-130); Calcium 9.4 mg/dL (7.8-10.44); Carbon Dioxide 23 mmol/L (23-31); Chloride 108 mmol/L (98-107); Estimated GFR-MDRD 79; Globulin 3.4 g/dL (2.4-3.5); Glucose 105 mg/dL (83-110); Potassium 4.4 mmol/L (3.5-5.1); Protein, Total 7.1 g/dL (6.0-8.3); Sodium 141 mmol/L (136-145)
--- NOTE | 2018-06-24 07:44 | RAD ---
CHEST 1 VIEW: INDICATION: Dyspnea. IMPRESSION: No acute abnormality. The lungs are clear. Heart size is accentuated by exam technique. No acute o sseous abnormality is noted. POS: [facility]
--- NOTE | 2018-06-24 08:45 | ULT ---
PRELIMINARY REPORT/[facility]/EMERGENTY AFTER-HOURS PROCEDURE US Duplex Bilateral Lower Extremity Veins EXAM DATE/TIME: 06/24/2018 2:43 AM CLINICAL HISTORY: 73 years old, female; Pain and signs and symptoms; Edema, localized; Lower extremity, bilateral; Leg, lower; Patient HX: Ble lower legs edema. TECHNIQUE: Real-time duplex ultrasound of the Bilateral Lower Extremities with 2-D gomez scale, color Doppler jordan w and spectral waveform analysis. Complete exam focused on the bilateral lower extremity veins. COMPARISON: No relevant prior studies available. FINDINGS: Right deep veins: Unremarkable. The common femoral, femoral, proximal profunda femoral and popliteal veins are patent without thrombus. Normal Doppler waveforms. Normal compressibility and/or augmentati on response. Right superficial veins: Saphenofemoral junction is patent without thrombus. Left deep veins: Unremarkable. The common femoral, femoral, proximal profunda femoral and popliteal v eins are patent without thrombus. Normal Doppler waveforms. Normal compressibility and/or augmentatio n response. Left superficial veins: Saphenofemoral junction is patent without thrombus. Soft tissues: Unremarkable. IMPRESSION: No acute findings. No evidence of deep vein thrombosis. Thank you for allowing us to participate in the care of your patient. Dictated and Authenticated by: Nicola Jernigan MD 06/24/2018 3:35 AM Central Time ([place] & [place]) FINAL REPORT BILATERAL LOWER EXTREMITY VENOUS DOPPLER ULTRASOUND: Date: 06/24/18 FINDINGS/IMPRESSION: I agree with the preliminary report given by Christa. POS: [facility]
== END 2018-06-24 06:13 | disposition home or self-care (01) ==
LOC: ERS 23:54
DX: R06.02 Shortness of breath (principal); R05 Cough; E11.9 Type 2 diabetes mellitus without complications; E78.5 Hyperlipidemia, unspecified; F17.220 Nicotine dependence, chewing tobacco, uncomplicated; Z79.899 Other long term (current) drug therapy; Z79.82 Long term (current) use of aspirin
CPT/HCPCS: 36415; 71045; 80053; 83880; 84484; 85025; 87804; 93005; 93970

== ENCOUNTER 2018-07-03 18:52 | Observation (INO) | payer MEDICARE, MEDICAID ==
--- NOTE | 2018-07-03 19:37 | RAD ---
SINGLE VIEW OF THE CHEST: 07/03/18 COMPARISON: 04/07/18 HISTORY: Left sided chest pain for a day and dyspnea. FINDINGS: Single view of the chest shows a normal sized cardiomediastinal silhouette. There is no evidence of c onsolidation, mass, or pleural effusion. Degenerative changes are seen in the spine and shoulders. IMPRESSION: No evidence of acute cardiopulmonary disease. POS: [facility]
[2018-07-03 19:49] LABS: #Basophils 0.1 thou/uL (0.0-0.2); #Eosinphils 0.2 thou/uL (0.0-0.7); #Lymphocytes 1.8 thou/uL (1.20-3.40); #Monocytes 0.5 thou/uL (0.11-0.59); #Neutrophils 4.3 thou/uL (1.40-6.50); %Basophils 1.1 % (0.0-1.0); %Lymphocytes 25.9 % (21.0-51.0); %Monocytes 6.7 % (0.0-10.0); %Neutrophils 63.3 % (42.0-75.0); Hemoglobin 11.4 g/dL (12.0-16.0); Mean Corpuscular HGB CONC 32.3 g/dL (32.0-36.0); Mean Corpuscular Hemoglobin 32.7 pg (27.0-31.0); Platelet Count 211 thou/uL (130-400); RBC Distribution Width 13.4 % (11.5-14.5); Red Blood Cell (RBC) Count 3.48 mill/uL (4.20-5.40); White Blood Cell (WBC) Count 6.8 thou/uL (4.8-10.8)
[2018-07-03 20:19] LABS: ALT (SGPT) 14 U/L (8-55); AST (SGOT) 31 U/L (5-34); Alkaline Phosphatase 64 U/L (40-150); Anion Gap 14 mmol/L (10-20); BUN (Urea Nitrogen) 12 mg/dL (9.8-20.1); Bilirubin, Total 0.5 mg/dL (0.2-1.2); CK (CPK) 229 U/L (29-168); Calc. Creatinine Clearance 0 mL/min (70-130); Calcium 9.6 mg/dL (7.8-10.44); Carbon Dioxide 18 mmol/L (23-31); Chloride 105 mmol/L (98-107); Estimated GFR-MDRD 79; Globulin 3.7 g/dL (2.4-3.5); Glucose 77 mg/dL (83-110); Lipase 32 U/L (8-78); Potassium 3.9 mmol/L (3.5-5.1); Protein, Total 7.7 g/dL (6.0-8.3); Sodium 133 mmol/L (136-145)
--- NOTE | 2018-07-03 20:43 | PDOC.FPRHP ---
- History of Present Illness Chief Complaint: Chest pain History of Present Illness: Ms. Sparks presents for chest pain she reports that she began having sharp pain in her chest last night before going to bed and then when she was getting out of bed she had pain in her chest described as tightness or pulling. She reports it has not gotten better throughout the day, she denies ZALDIVAR, exertional pain, substernal pressure, diaphoresis, or palpitations. When asked if this was pain similar to the previous times she has come to the hospital she said she had not been to the hospital for chest pain before. Upon chart review she has presented with similar reproducible chest pain and negative cardiac work up ED Course: CBC, CK, CMP, Lipase, Trop, CXR ASA given - Allergies/Adverse Reactions Allergies Allergy/AdvReac Type Severity Reaction Status Date / Time No Known Drug Allergies Allergy Verified 07/03/18 23:41 - Home Medications Medication Instructions Recorded Confirmed Type Atorvastatin Calcium [Lipitor] 40 mg PO HS 07/30/17 07/03/18 History Cyanocobalamin (Vitamin B-12) 1,000 mcg PO DAILY 07/30/17 07/03/18 History [Vitamin B-12] Aspirin [Ecotrin Low Strength] 81 mg PO DAILY tab 04/08/18 07/03/18 Rx Omeprazole 40 mg PO DAILY 04/08/18 07/03/18 History sitaGLIPtin Phos/metFORMIN HCl 1 tab PO BID 04/08/18 07/03/18 History [Janumet 50-1,000 mg Tablet] Dorzolamide HCl/Timolol Maleat 1 drop EA EYE BID 07/03/18 07/03/18 History [Cosopt Ophth Solution] Latanoprost [Xalatan 0.005% Ophth 1 drop EA EYE HS 07/03/18 07/03/18 History Soln] - History PMHx:chest pain, negative LHC in 2018, HLD, GERD, DMII PSHx: Hyst, tubal FHx: CAD Social: no TAD - Review of Systems General: denies: fever/chills, weight/appetite/sleep changes Eyes: denies: eye pain, vision changes ENT: denies: nasal congestion, rhinorrhea Respiratory: denies: cough, congestion, shortness of breath, exercise intolerance Cardiovascular: reports: chest pain, edema (at baseline). denies: palpitation, paroxysmal nocturnal dyspnea Gastrointestinal: denies: nausea, vomiting, diarrhea, constipation Genitourinary: denies: incontinence, dysuria Skin: denies: rashes, lesions Musculoskeletal: reports: pain, tenderness. denies: stiffness Neurological: denies: numbness, syncope - Vital signs BP: 147/83 HR: 55 RR: 16 Tmax: 98 Pox: 100% on RA Wt: 112kg - Physical Exam Constitutional: NAD, awake, alert and oriented HEENT: normocephalic and atraumatic, grossly normal vision, grossly normal hearing Neck: supple, trachea midline Chest: other (tender to palpation, reproducible pain) Heart: normal S1/S2, no murmurs/rubs/gallops, other (bradycardic) Lungs: CTAB, no respiratory distress, good air movement Abdomen: soft, non-tender, bowel sounds present Musculoskeletal: normal structure, normal tone Neurological: no focal deficit, CN II-XII intact Skin: no rash/lesions, good turgor Heme/Lymphatic: no unusual bruising or bleeding, no purpura Psychiatric: normal mood and affect FMR H&P: Results - Labs Result Diagrams: 07/03/18 19:38 07/03/18 19:38 Lab results: WBC 6.8 thou/uL (4.8-10.8) 07/03/18 19:38 Hgb 11.4 g/dL (12.0-16.0) L 07/03/18 19:38 Hct 35.3 % (36.0-47.0) L 07/03/18 19:38 MCV 101.0 fL (78.0-98.0) H 07/03/18 19:38 Plt Count 211 thou/uL (130-400) 07/03/18 19:38 Neutrophils % 63.3 % (42.0-75.0) 07/03/18 19:38 Sodium 133 mmol/L (136-145) L 07/03/18 19:38 Potassium 3.9 mmol/L (3.5-5.1) 07/03/18 19:38 Chloride 105 mmol/L (98-107) 07/03/18 19:38 Carbon Dioxide 18 mmol/L (23-31) L 07/03/18 19:38 BUN 12 mg/dL (9.8-20.1) 07/03/18 19:38 Creatinine 0.86 mg/dL (0.6-1.1) 07/03/18 19:38 Glucose 77 mg/dL (83-110) L 07/03/18 19:38 Calcium 9.6 mg/dL (7.8-10.44) 07/03/18 19:38 Total Bilirubin 0.5 mg/dL (0.2-1.2) 07/03/18 19:38 AST 31 U/L (5-34) 07/03/18 19:38 ALT 14 U/L (8-55) 07/03/18 19:38 Alkaline Phosphatase 64 U/L (40-150) 07/03/18 19:38 Creatine Kinase 229 U/L (29-168) H 07/03/18 19:38 Serum Total Protein 7.7 g/dL (6.0-8.3) 07/03/18 19:38 Albumin 4.0 g/dL (3.4-4.8) 07/03/18 19:38 Lipase 32 U/L (8-78) 07/03/18 19:38 FMR H&P: A/P - Problem List (1) Elevated CK Current Visit: Yes Status: Acute (2) Atypical chest pain Current Visit: No Status: Acute Priority: High Code(s): R07.89 - OTHER CHEST PAIN (3) Bradycardia Current Visit: No Status: Acute Code(s): R00.1 - BRADYCARDIA, UNSPECIFIED (4) Diabetes Current Visit: No Status: Acute Code(s): E11.9 - TYPE 2 DIABETES MELLITUS WITHOUT COMPLICATIONS (5) HLD (hyperlipidemia) Current Visit: No Status: Acute Code(s): E78.5 - HYPERLIPIDEMIA, UNSPECIFIED Qualifiers: Hyperlipidemia type: unspecified Qualified Code(s): E78.5 - Hyperlipidemia , unspecified (6) HTN (hypertension) Current Visit: No Status: Acute Code(s): I10 - ESSENTIAL (PRIMARY) HYPERTENSION Qualifiers: Hypertension type: essential hypertension Qualified Code(s): I10 - Essential (primary) hypertension - Plan Atypical chest pain - post menopausal female with risk factors, reproducible pain - EKG similar read to past, T-wave abnormalities, CXR wnl - recent negative work up 04/11, clean cath in 2016 - cardiology recommended no intervention on 04/11, would not cath unless positive troponins - trend troponinsx3 - continue home asa and statin DMII - aware, continue home meds - mild SSI GERD - aware, continue home meds HLD - aware, continue home meds Elevated CK - aware, at baseline - likely 2/2 to statin, asymptomatic elevated BPs - reported no hx of, monitor ppx: lovenox code: full Dispo: observation on tele, trend trops, DC tomorrow FMR H&P: Upper Level - Pertinent history 73F p/w chest pain for the last 24 hours. Described as sharp in nature and intermittent. She denies any dyspnea on exertion, radiation of the pain, diaphoresis, palpitations, headache, lightheadedness, n/v. She denies any aggravation with exertion. Patient has a recent history of admission in March for chest pain that was evaluated by Cardiology. It was diagnosed as MSK in etiology and no catheterization was performed. ER: ASA - Pertinent findings H.4 Na: 133 CK: 229 trop: negative x2 at this time CXR: no acute cardiopulmonary process EKG: NSR, T wave abnormalities consistent with prior EKGs Gen: A&Ox3 CV: pain with palpation over anterior chest wall, RRR Pulm: CTA-B Ext: BLE - Plan Date/Time: 07/03/182040 ICarroll, have evaluated this patient and agree with findings/plan as outlined by general internal medicine physician resident. Pertinent changes/additions are listed here. Atypical chest pain likely 2/2 costochondritis: similar presentation to the prior two admissions. Exam and laboratory studies consistent with MSK etiology. HEART score of 5 is concerning. Last stress test performed was February 2016 and was negative for any fixed or reversible defect. Echo during same admission showing EF of 50-55%. Catheterization done in 2016 was negative. We will hold off on cardiology consult, catheterization, and stress test at this time. Trend troponins and repeat EKGs. Treat pain with tylenol and naproxen. Elevated CK: only slightly above baseline. Likely related to statin use. Continue to monitor while in hospital.
[2018-07-03] MEDS ORDERED: Aspirin Chewable 81 MG TAB ONE (20:46)
[2018-07-03] MEDS ORDERED: HumaLOG 300 UNITS/3 ML VIAL SC PRN ×2 (23:21)
[2018-07-03] MEDS ORDERED: Dextrose 5% in Water 1,000 ML IV PRN (23:21)
[2018-07-03] MEDS ORDERED: Dextrose 50% Abboject 50 ML SYRINGE SLOW IVP PRN (23:21)
[2018-07-03] MEDS ORDERED: Acetaminophen 325 MG TAB PO PRN (23:21)
[2018-07-03] MEDS ORDERED: Ondansetron ODT 4 MG TAB PO PRN (23:21)
[2018-07-03 23:30] VITALS: BMI 38.5
--- NOTE | 2018-07-04 05:50 | PDOC.FM ---
- Subjective Subjective: Pt feeling well this AM. Denies CP. Denies any complaints. Wants to go home. no fever/chills, no palpitations/cp - Objective MAR Reviewed: Yes Vital Signs & Weight: Vital Signs (12 hours) Temp Pulse Resp BP Pulse Ox 07/04/18 05:03 98.2 F 65 16 113/55 L 98 07/03/18 23:30 97.6 F 48 L 18 141/70 H 100 Weight Weight 108.409 kg I&O: 07/02/18 07/03/18 07/04/18 06:59 06:59 06:59 Intake Total 200 Output Total 525 Balance -325 Result Diagrams: 07/03/18 19:38 07/03/18 19:38 Phys Exam - Physical Examination Constitutional: NAD HEENT: moist MMs, sclera anicteric Neck: no JVD, supple Respiratory: no wheezing, clear to auscultation bilateral Cardiovascular: RRR, no significant murmur Gastrointestinal: soft, non-tender Musculoskeletal: no edema, pulses present Neurological: normal sensation, moves all 4 limbs Psychiatric: normal affect, A&O x 3 Skin: no rash, normal turgor Dx/Plan (1) Elevated CK Status: Acute (2) Atypical chest pain Code(s): R07.89 - OTHER CHEST PAIN Status: Acute (3) Diabetes Code(s): E11.9 - TYPE 2 DIABETES MELLITUS WITHOUT COMPLICATIONS Status: Acute (4) HLD (hyperlipidemia) Code(s): E78.5 - HYPERLIPIDEMIA, UNSPECIFIED Status: Acute Qualifiers: Hyperlipidemia type: unspecified Qualified Code(s): E78.5 - Hyperlipidemia , unspecified (5) HTN (hypertension) Code(s): I10 - ESSENTIAL (PRIMARY) HYPERTENSION Status: Acute Qualifiers: Hypertension type: essential hypertension Qualified Code(s): I10 - Essential (primary) hypertension (6) Rheumatoid arteritis Code(s): I00 - RHEUMATIC FEVER WITHOUT HEART INVOLVEMENT Status: Acute - Plan Plan: Atypical chest pain A- post menopausal female with risk factors, reproducible pain. EKG similar read to past, T-wave abnormalities, CXR wnl. Recent negative work up 04/11, clean cath in 2016. No stress test done on last workup however. Cardiology recommended no intervention on 04/11, would not cath unless positive troponins. Negative troponinsx3 P- continue home asa and statin - likely DC today with plans for outpt cardiology f/u DMII - aware, continue home meds - mild SSI GERD - aware, continue home meds HLD - aware, continue home meds Elevated CK - aware, at baseline - likely 2/2 to statin, asymptomatic elevated BPs - reported no hx of, monitor ppx: lovenox code: full
[2018-07-04] MEDS ORDERED: Enoxaparin Sodium 40 MG/0.4 ML SYRINGE SC SCH (09:00)
--- NOTE | 2018-07-04 11:00 | HP ---
Ms. Sparks is a 73-year-old black female, who was admitted with some atypical chest pain. In the past, she has had a negative cath and negative stress testing. Her troponins have all been negative. She is completely pain free and her pain sounds much more like costochondritis. In the event, we would discharge her to follow up with her hat maker early next week. Job ID: [id number]
[2018-07-04 12:21] VITALS: BP 140/65; TEMP 97.2
--- NOTE | 2018-07-05 12:52 | DIS ---
DATE OF ADMISSION: 07/03/2018 DATE OF DISCHARGE: 07/04/2018 RESIDENT: Wyatt Valera MD. ADMITTING ATTENDING: Deonte Joy MD. DISCHARGE ATTENDING: Deonte Joy MD. CONSULTS: None. PROCEDURES: On 07/03/2018, chest x-ray, impression, no evidence of acute cardiopulmonary disease. PRIMARY DIAGNOSIS: Atypical chest pain secondary to musculoskeletal etiology. SECONDARY DIAGNOSES: 1. Type 2 diabetes. 2. Gastroesophageal reflux disease. 3. Hyperlipidemia. 4. Elevated CK. DISCHARGE MEDICATIONS: 1. Atorvastatin 40 mg p.o. at bedtime. 2. Vitamin B12 1000 mcg p.o. daily. 3. Omeprazole 40 mg p.o. daily. 4. Janumet 1 tablet p.o. b.i.d. 5. Aspirin 81 mg p.o. daily. 6. Latanoprost 1 drop each eye at bedtime. 7. Cosopt ophthalmic solution 1 drop each eye b.i.d. DISCONTINUED MEDICATIONS: None. HISTORY OF PRESENT ILLNESS AND HOSPITAL COURSE: This is a 73-year-old female who presented with complaint of acute chest pain. The patient reported her pain was related to movement while getting out of bed and was admitted for observation and rule out of cardiac etiology of chest pain. This patient has been admitted several times for similar complaints of atypical chest pain with previous workups that have been negative. On most recent admission, the patient had seen Cardiology in March of 2018, who stated that no interventions would be necessary for this patient unless she had positive troponins. On this admission starting at 07/03/2018, the patient had a negative EKG and negative troponins x3 as well as a spontaneous resolution of atypical chest pain. Of note, the pain was reproducible with slight pressure to the sternum. On discussion with the patient who has agreed that she was safe for discharge with intentions for close cardiac follow up with safety relief valve technician and potential plans for outpatient stress test. DISPOSITION: Stable. DISCHARGE INSTRUCTIONS: 1. Location: Home. 2. Diet: Healthy heart. 3. Activity: As tolerated. 4. Followup: Follow up with Dr. Daniel Celaya in [address] Omar Trujillo in 14 days. Job ID: [id number]
== END 2018-07-04 13:41 | disposition home or self-care (01) ==
LOC: ERS 18:52 → 2SW 23:10
PROVIDERS: ADMIT Family Medicine; ATTEND Family Medicine
DX: R07.89 Other chest pain (principal); E11.9 Type 2 diabetes mellitus without complications; K21.9 Gastro-esophageal reflux disease without esophagitis; E78.5 Hyperlipidemia, unspecified; R74.8 Abnormal levels of other serum enzymes; I10 Essential (primary) hypertension; I00 Rheumatic fever without heart involvement; Z90.710 Acquired absence of both cervix and uterus; Z98.51 Tubal ligation status; Z79.82 Long term (current) use of aspirin; Z79.899 Other long term (current) drug therapy
CPT/HCPCS: 71045; 80053; 82550; 82962 ×2; 83690; 84484 ×3; 85025; 93005; 94760 ×2; 96372; 99285; G0378 ×3; 36415; 36416; J1650

== ENCOUNTER 2018-07-10 18:51 | Emergency (ER) | payer MEDICARE, MEDICAID ==
[2018-07-10 19:13] LABS: #Basophils 0.1 thou/uL (0.0-0.2); #Eosinphils 0.2 thou/uL (0.0-0.7); #Lymphocytes 1.6 thou/uL (1.20-3.40); #Monocytes 0.5 thou/uL (0.11-0.59); #Neutrophils 4.4 thou/uL (1.40-6.50); %Basophils 1.2 % (0.0-1.0); %Eosinophils 3.2 % (0.0-10.0); %Lymphocytes 23.8 % (21.0-51.0); %Monocytes 6.9 % (0.0-10.0); %Neutrophils 64.9 % (42.0-75.0); Hemoglobin 11.2 g/dL (12.0-16.0); Mean Corpuscular HGB CONC 32.4 g/dL (32.0-36.0); Mean Corpuscular Hemoglobin 32.6 pg (27.0-31.0); Mean Platelet Volume 7.5 fL (7.4-10.4); Platelet Count 237 thou/uL (130-400); RBC Distribution Width 13.5 % (11.5-14.5); Red Blood Cell (RBC) Count 3.43 mill/uL (4.20-5.40); White Blood Cell (WBC) Count 6.7 thou/uL (4.8-10.8)
--- NOTE | 2018-07-10 19:33 | RAD ---
PA AND LATERAL VIEWS OF THE CHEST: 07/10/18 HISTORY: Chest pain. FINDINGS: Comparison made with exam of 07/03/18. The heart size is normal. the aorta is tortuous. The lungs are expanded without focal areas of consol idation, pneumothoraces or pleural effusions. There are degenerative changes in the spine. IMPRESSION: No radiographic evidence of acute cardiopulmonary process. POS: [facility]
[2018-07-10 19:37] LABS: ALT (SGPT) 14 U/L (8-55); AST (SGOT) 28 U/L (5-34); Albumin 4.1 g/dL (3.4-4.8); Alkaline Phosphatase 72 U/L (40-150); Anion Gap 12 mmol/L (10-20); BUN (Urea Nitrogen) 11 mg/dL (9.8-20.1); Bilirubin, Total 0.5 mg/dL (0.2-1.2); CK (CPK) 223 U/L (29-168); Calc. Creatinine Clearance 0 mL/min (70-130); Calcium 9.7 mg/dL (7.8-10.44); Carbon Dioxide 24 mmol/L (23-31); Chloride 106 mmol/L (98-107); Estimated GFR-MDRD 72; Globulin 3.3 g/dL (2.4-3.5); Glucose 84 mg/dL (83-110); Protein, Total 7.4 g/dL (6.0-8.3); Sodium 138 mmol/L (136-145)
[2018-07-10 21:30] LABS: Troponin I Less than 0.010 ng/mL (< 0.028)
== END 2018-07-10 22:57 | disposition home or self-care (01) ==
LOC: ERS 18:51
DX: R07.89 Other chest pain (principal); E11.9 Type 2 diabetes mellitus without complications; E78.5 Hyperlipidemia, unspecified; Z79.899 Other long term (current) drug therapy; Z79.84 Long term (current) use of oral hypoglycemic drugs
CPT/HCPCS: 36415; 71046; 80053; 82550; 84484; 85025; 93005

== ENCOUNTER 2020-05-24 17:23 | Emergency (ER) | payer MEDICARE, MEDICAID ==
[2020-05-24 18:36] LABS: #Basophils 0.1 thou/uL (0.0-0.2); #Eosinphils 0.4 thou/uL (0.0-0.7); #Lymphocytes 1.8 thou/uL (1.20-3.40); #Monocytes 0.6 thou/uL (0.11-0.59); #Neutrophils 5.9 thou/uL (1.40-6.50); %Basophils 1.1 % (0.0-1.0); %Eosinophils 4.9 % (0.0-10.0); %Lymphocytes 19.9 % (21.0-51.0); %Monocytes 6.9 % (0.0-10.0); %Neutrophils 67.2 % (42.0-75.0); Mean Corpuscular HGB CONC 32.8 g/dL (32.0-36.0); Mean Corpuscular Hemoglobin 32.4 pg (27.0-31.0); Mean Corpuscular Volume 98.9 fL (78.0-98.0); Mean Platelet Volume 7.5 fL (7.4-10.4); Platelet Count 278 thou/uL (130-400); RBC Distribution Width 13.4 % (11.5-14.5); Red Blood Cell (RBC) Count 3.71 mill/uL (4.20-5.40); White Blood Cell (WBC) Count 8.8 thou/uL (4.8-10.8)
[2020-05-24 18:55] LABS: ALT (SGPT) 10 U/L (8-55); AST (SGOT) 21 U/L (5-34); Albumin 4.1 g/dL (3.4-4.8); Alkaline Phosphatase 69 U/L (40-110); Anion Gap 15 mmol/L (10-20); BUN (Urea Nitrogen) 14 mg/dL (9.8-20.1); Bilirubin, Total 0.6 mg/dL (0.2-1.2); Calc. Creatinine Clearance 0 mL/min (70-130); Calcium 9.7 mg/dL (7.8-10.44); Carbon Dioxide 27 mmol/L (23-31); Chloride 101 mmol/L (98-107); Globulin 3.5 g/dL (2.4-3.5); Glucose 88 mg/dL (83-110); Potassium 4.2 mmol/L (3.5-5.1); Protein, Total 7.6 g/dL (6.0-8.3); Sodium 139 mmol/L (136-145)
--- NOTE | 2020-05-24 19:16 | RAD ---
RADIOGRAPH CHEST 1 VIEW: 05/24/20 at 6:07 p.m. HISTORY: 74-year-old female with dyspnea. FINDINGS: There are no air space densities, pulmonary edema, pneumothorax, or cardiomegaly. The lateral costop hrenic angles are sharp. IMPRESSION: No acute cardiopulmonary findings. jn [] POS: [facility]
[2020-05-24] MEDS ORDERED: Morphine 4 MG/ML VIAL ONE (20:31)
[2020-05-24] MEDS ORDERED: Ondansetron PF 4 MG/2 ML Vial ONE (20:31)
== END 2020-05-24 21:21 | disposition home or self-care (01) ==
LOC: ERS 17:23
DX: K59.00 Constipation, unspecified (principal); R10.9 Unspecified abdominal pain; E11.9 Type 2 diabetes mellitus without complications; E78.5 Hyperlipidemia, unspecified; Z79.82 Long term (current) use of aspirin; Z79.899 Other long term (current) drug therapy
CPT/HCPCS: 71045; 80053; 83880; 84484; 85025; 93005; 96374; 96375; J2270; J2405

== ENCOUNTER 2020-06-17 09:41 | Emergency (ER) | payer MEDICARE, MEDICAID, OTHER ==
--- NOTE | 2020-06-17 10:12 | RAD ---
PORTABLE CHEST: Date: 06/17/2020 PROVIDED CLINICAL HISTORY: Evidence for COVID. FINDINGS: Comparison with 05/24/2020. Cardiac and mediastinal silhouette is unchanged in appearance. No focal consolidation, pleural fluid, or pneumothorax apparent. IMPRESSION: No evidence for an acute cardiopulmonary process. POS: [facility]
== END 2020-06-17 10:56 | disposition home or self-care (01) ==
LOC: ERS 09:41
DX: R43.0 Anosmia (principal); R05 Cough; R43.9 Unspecified disturbances of smell and taste; E11.9 Type 2 diabetes mellitus without complications; R53.83 Other fatigue; E78.5 Hyperlipidemia, unspecified; M06.9 Rheumatoid arthritis, unspecified; Z20.822 Contact with and (suspected) exposure to COVID-19; Z79.82 Long term (current) use of aspirin; Z79.899 Other long term (current) drug therapy; Z79.84 Long term (current) use of oral hypoglycemic drugs
CPT/HCPCS: 71045

== ENCOUNTER 2020-09-02 13:11 | Emergency (ER) | payer MEDICARE, MEDICAID ==
[2020-09-02] MEDS ORDERED: Ondansetron ODT 4 MG TAB ONE (17:15)
[2020-09-02 17:26] LABS: Bacteria/HPF 3+ HPF (None Seen); Bilirubin Negative (Negative); Blood, Urine Negative (Negative); Clarity Turbid (Clear); Glucose, Urine (Dipstick) Normal (Negative); Ketone, Urine Negative (Negative); Leukocyte 75 Leu/uL (Negative); Nitrite Negative (Negative); Protein, Urine (Dipstick) Negative (Neg-Trace); RBC/HPF 0-3 HPF (0-3); Specific Gravity, Urine 1.008 (1.002-1.036); Squamous Epithelial 0-3 HPF (0-3); Urobilinogen Normal mg/dL (Less than 2); pH, Urine 7.5 (5.0-9.0)
[2020-09-02] MEDS ORDERED: Metoclopramide HCl 10 MG TAB PO SCH (17:30)
[2020-09-02] MEDS ORDERED: Fleet Enema 133 ML BOT PR SCH (19:00)
== END 2020-09-02 19:41 | disposition home or self-care (01) ==
LOC: ERS 13:11
DX: N39.0 Urinary tract infection, site not specified (principal); E11.9 Type 2 diabetes mellitus without complications; E78.5 Hyperlipidemia, unspecified; M06.9 Rheumatoid arthritis, unspecified; Z79.82 Long term (current) use of aspirin; Z79.899 Other long term (current) drug therapy
CPT/HCPCS: 74018; 81003; 81015; 87086; Q0162

== ENCOUNTER 2021-03-10 18:39 | Emergency (ER) | payer MEDICARE, OTHER ==
[~2021-03-10 18:39] MED LIST changes: -ISOVUE-370 76%-LOCM 1 ML ONE; +Iopamidol-370 76% 500 ML 1 ML ONE
[2021-03-10 20:44] LABS: #Eosinphils 0.2 thou/uL (0.0-0.7); #Lymphocytes 0.6 thou/uL (1.20-3.40); #Monocytes 0.2 thou/uL (0.11-0.59); #Neutrophils 6.7 thou/uL (1.40-6.50); %Basophils 0.1 % (0.0-1.0); %Eosinophils 2.1 % (0.0-10.0); %Lymphocytes 7.9 % (21.0-51.0); %Neutrophils 87.9 % (42.0-75.0); Hemoglobin 11.3 g/dL (12.0-16.0); Mean Corpuscular HGB CONC 34.3 g/dL (32.0-36.0); Mean Corpuscular Hemoglobin 34.3 pg (27.0-31.0); Mean Platelet Volume 7.6 fL (7.4-10.4); Platelet Count 194 thou/uL (130-400); RBC Distribution Width 14.3 % (11.5-14.5); White Blood Cell (WBC) Count 7.6 thou/uL (4.8-10.8)
[2021-03-10 21:09] LABS: ALT (SGPT) 21 U/L (8-55); AST (SGOT) 42 U/L (5-34); Albumin 3.7 g/dL (3.4-4.8); Alkaline Phosphatase 69 U/L (40-110); Anion Gap 13 mmol/L (10-20); BUN (Urea Nitrogen) 14 mg/dL (9.8-20.1); Bilirubin, Total 1.1 mg/dL (0.2-1.2); Calc. Creatinine Clearance 0 mL/min (70-130); Calcium 9.3 mg/dL (7.8-10.44); Carbon Dioxide 24 mmol/L (23-31); Chloride 102 mmol/L (98-107); Globulin 3.4 g/dL (2.4-3.5); Glucose 156 mg/dL (83-110); Lipase 23 U/L (8-78); Potassium 4.8 mmol/L (3.5-5.1); Protein, Total 7.1 g/dL (5.8-8.1); Sodium 134 mmol/L (136-145)
[2021-03-10 23:06] LABS: Bacteria/HPF None Seen HPF (None Seen); Bilirubin Negative (Negative); Blood, Urine 1+ (Negative); Clarity Turbid (Clear); Glucose, Urine (Dipstick) Normal (Negative); Ketone, Urine Negative (Negative); Leukocyte 500 Leu/uL (Negative); Nitrite Negative (Negative); Protein, Urine (Dipstick) 30 mg/dL (Neg-Trace); Specific Gravity, Urine 1.015 (1.002-1.036); Squamous Epithelial 0-3 HPF (0-3); Urobilinogen Normal mg/dL (Less than 2); WBC/HPF Greater than 50 HPF (0-3)
[2021-03-10] MEDS ORDERED: Lidocaine Viscous Sol 2% 15 ml UD Cup ONE (23:24)
[2021-03-11] MEDS ORDERED: Mineral Oil ENEMA PR SCH ×2 (00:45)
== END 2021-03-11 03:00 | disposition home or self-care (01) ==
LOC: ERS 18:39
DX: K56.41 Fecal impaction (principal); N39.0 Urinary tract infection, site not specified; E11.9 Type 2 diabetes mellitus without complications; E78.5 Hyperlipidemia, unspecified; M06.9 Rheumatoid arthritis, unspecified; Z79.82 Long term (current) use of aspirin; Z79.899 Other long term (current) drug therapy
CPT/HCPCS: 36415; 74177; 80053; 81003; 81015; 83690; 85025; Q9967

== ENCOUNTER 2021-03-15 21:00 | Inpatient (IN) | payer MEDICARE, OTHER ==
[2021-03-15 22:26] LABS: Hemoglobin 10.3 g/dL (12.0-16.0); Mean Corpuscular HGB CONC 34.5 g/dL (32.0-36.0); Mean Corpuscular Hemoglobin 33.7 pg (27.0-31.0); Mean Corpuscular Volume 97.8 fL (78.0-98.0); Mean Platelet Volume 8.5 fL (7.4-10.4); Platelet Count 236 thou/uL (130-400); RBC Distribution Width 14.8 % (11.5-14.5); Red Blood Cell (RBC) Count 3.04 mill/uL (4.20-5.40); White Blood Cell (WBC) Count 13.2 thou/uL (4.8-10.8)
[2021-03-15 22:43] LABS: ALT (SGPT) 57 U/L (8-55); AST (SGOT) 113 U/L (5-34); Albumin 3.5 g/dL (3.4-4.8); Alkaline Phosphatase 127 U/L (40-110); Anion Gap 25 mmol/L (10-20); BUN (Urea Nitrogen) 38 mg/dL (9.8-20.1); Bilirubin, Total 1.1 mg/dL (0.2-1.2); CK (CPK) 2777 U/L (29-168); Calc. Creatinine Clearance 0 mL/min (70-130); Calcium 8.8 mg/dL (7.8-10.44); Carbon Dioxide 15 mmol/L (23-31); Chloride 98 mmol/L (98-107); Globulin 3.4 g/dL (2.4-3.5); Glucose 81 mg/dL (83-110); Potassium 4.5 mmol/L (3.5-5.1); Protein, Total 6.9 g/dL (5.8-8.1); Sodium 133 mmol/L (136-145)
[2021-03-15 22:47] LABS: Band 7 % (5-11); Eosinophils 3 % (0-10); Lymphocytes 3 % (21-51); MDiff Complete? YES; Monocytes 15 % (0-10); Neutrophil 72 % (42-75)
[2021-03-15] MEDS ORDERED: cefTRIAXone\\ROCEPHIN 2 GM VIAL ONE (23:02)
[2021-03-15 23:08] LABS: CKMB 39.9 ng/mL (0-6.6)
[2021-03-16] MEDS ORDERED: Ondansetron PF 4 MG/2 ML Vial IVP PRN (03:07)
[2021-03-16 03:15] LABS: Troponin I 0.016 ng/mL (< 0.028)
[2021-03-16] MEDS: Sodium Chloride 0.9% 1,000 ML IV SCH ×3 (03:20→20:41)
[2021-03-16 03:37] VITALS: BMI 35.4
[2021-03-16] MEDS ORDERED: cefTRIAXone\\ROCEPHIN 2 GM VIAL ONE (03:41)
[2021-03-16 04:35] LABS: Hemoglobin 10.6 g/dL (12.0-16.0); Mean Corpuscular HGB CONC 33.2 g/dL (32.0-36.0); Mean Corpuscular Hemoglobin 33.1 pg (27.0-31.0); Mean Corpuscular Volume 99.8 fL (78.0-98.0); Mean Platelet Volume 7.9 fL (7.4-10.4); Platelet Count 212 thou/uL (130-400); RBC Distribution Width 14.8 % (11.5-14.5); Red Blood Cell (RBC) Count 3.21 mill/uL (4.20-5.40); White Blood Cell (WBC) Count 14.4 thou/uL (4.8-10.8)
[2021-03-16 04:48] LABS: Troponin I 0.034 ng/mL (< 0.028)
[2021-03-16 04:51] LABS: SARS-CoV-2 NAA Rapid Test Not Detected (NotDetected)
[2021-03-16 04:52] LABS: ALT (SGPT) 57 U/L (8-55); AST (SGOT) 116 U/L (5-34); Albumin 3.3 g/dL (3.4-4.8); Alkaline Phosphatase 120 U/L (40-110); Anion Gap 21 mmol/L (10-20); BUN (Urea Nitrogen) 34 mg/dL (9.8-20.1); Bilirubin, Total 0.7 mg/dL (0.2-1.2); CK (CPK) 2976 U/L (29-168); Calc. Creatinine Clearance 32 mL/min (70-130); Calcium 8.6 mg/dL (7.8-10.44); Carbon Dioxide 14 mmol/L (23-31); Chloride 101 mmol/L (98-107); Globulin 3.3 g/dL (2.4-3.5); Glucose 91 mg/dL (83-110); Potassium 4.3 mmol/L (3.5-5.1); Protein, Total 6.6 g/dL (5.8-8.1); Sodium 132 mmol/L (136-145)
[2021-03-16 04:55] LABS: Band 12 % (5-11); Lymphocytes 8 % (21-51); MDiff Complete? YES; Macrocytosis SLIGHT = 6-15 cells (100X) (0-5/hpf); Monocytes 13 % (0-10); Neutrophil 66 % (42-75); Reactive Lymphocytes 1 % (0-10)
[2021-03-16 07:18] LABS: Bilirubin Negative (Negative); Blood, Urine 2+ (Negative); Clarity Turbid (Clear); Glucose, Urine (Dipstick) Normal (Negative); Ketone, Urine Trace mg/dL (Negative); Leukocyte 250 Leu/uL (Negative); Nitrite Negative (Negative); Protein, Urine (Dipstick) 50 mg/dL (Neg-Trace); RBC/HPF 0-3 HPF (0-3); Specific Gravity, Urine 1.014 (1.002-1.036); Squamous Epithelial 0-3 HPF (0-3); Urobilinogen Normal mg/dL (Less than 2); pH, Urine 5.5 (5.0-9.0)
[2021-03-16 07:20] LABS: Bacteria/HPF 1+ HPF (None Seen)
[2021-03-16 07:21] LABS: Urine Culture Reflex Yes Yes
[2021-03-16] MEDS ORDERED: Dextrose 50% Abboject 50 ML SYRINGE SLOW IVP PRN (08:13)
[2021-03-16] MEDS ORDERED: Dextrose 5% in Water 1,000 ML IV PRN (08:13)
[2021-03-16] MEDS ORDERED: HumaLOG 300 UNITS/3 ML VIAL SC PRN ×2 (08:13)
[2021-03-16 08:18] LABS: Bilirubin Negative (Negative); Blood, Urine 2+ (Negative); Clarity Turbid (Clear); Glucose, Urine (Dipstick) Normal (Negative); Ketone, Urine 10 mg/dL (Negative); Leukocyte 250 Leu/uL (Negative); Nitrite Negative (Negative); Protein, Urine (Dipstick) 50 mg/dL (Neg-Trace); Specific Gravity, Urine 1.012 (1.002-1.036); Squamous Epithelial None Seen HPF (0-3); Urobilinogen Normal mg/dL (Less than 2); pH, Urine 5.5 (5.0-9.0)
[2021-03-16 08:36] LABS: Magnesium 2.5 mg/dL (1.6-2.6); Phosphorus 4.7 mg/dL (2.3-4.7)
[2021-03-16 08:38] LABS: Bacteria/HPF 1+ HPF (None Seen)
[2021-03-16] MEDS: Heparin 5,000 UNITS/ML VIAL SC SCH ×3 (08:50→20:40)
[2021-03-16 16:50] LABS: Anion Gap 17 mmol/L (10-20); BUN (Urea Nitrogen) 33 mg/dL (9.8-20.1); Calc. Creatinine Clearance 41 mL/min (70-130); Calcium 8.2 mg/dL (7.8-10.44); Carbon Dioxide 17 mmol/L (23-31); Chloride 101 mmol/L (98-107); Glucose 136 mg/dL (83-110); Potassium 3.7 mmol/L (3.5-5.1); Sodium 131 mmol/L (136-145)
[2021-03-16] MEDS: diphenhydrAMINE 25 MG CAP PO PRN (20:40)
[2021-03-17] MEDS: Acetaminophen 325 MG TAB PO PRN ×2 (03:11→11:30)
[2021-03-17] MEDS: diphenhydrAMINE 25 MG CAP PO PRN (03:11)
[2021-03-17] MEDS: Sodium Chloride 0.9% 1,000 ML IV SCH (03:36)
[2021-03-17] MEDS ORDERED: ALPRAZolam 0.25 MG TAB PO SCH (04:15)
[2021-03-17] MEDS ORDERED: cefTRIAXone\\ROCEPHIN 1 GM in Sodium Chloride 0.9% 100 ML IVPB SCH (05:00)
[2021-03-17 06:49] LABS: ALT (SGPT) 45 U/L (8-55); AST (SGOT) 77 U/L (5-34); Albumin 2.6 g/dL (3.4-4.8); Alkaline Phosphatase 108 U/L (40-110); Anion Gap 13 mmol/L (10-20); BUN (Urea Nitrogen) 23 mg/dL (9.8-20.1); Bilirubin, Total 0.5 mg/dL (0.2-1.2); CK (CPK) 1161 U/L (29-168); Calc. Creatinine Clearance 53 mL/min (70-130); Calcium 7.4 mg/dL (7.8-10.44); Carbon Dioxide 18 mmol/L (23-31); Chloride 106 mmol/L (98-107); Globulin 2.7 g/dL (2.4-3.5); Glucose 129 mg/dL (83-110); Potassium 3.7 mmol/L (3.5-5.1); Protein, Total 5.3 g/dL (5.8-8.1); Sodium 133 mmol/L (136-145)
[2021-03-17 07:46] LABS: Band 12 % (5-11); Eosinophils 4 % (0-10); Hemoglobin 9.1 g/dL (12.0-16.0); Lymphocytes 13 % (21-51); MDiff Complete? YES; Mean Corpuscular HGB CONC 34.2 g/dL (32.0-36.0); Mean Corpuscular Hemoglobin 33.3 pg (27.0-31.0); Mean Corpuscular Volume 97.5 fL (78.0-98.0); Mean Platelet Volume 7.5 fL (7.4-10.4); Monocytes 7 % (0-10); Neutrophil 64 % (42-75); Platelet Count 222 thou/uL (130-400); RBC Distribution Width 14.7 % (11.5-14.5); Red Blood Cell (RBC) Count 2.72 mill/uL (4.20-5.40); White Blood Cell (WBC) Count 8.1 thou/uL (4.8-10.8)
[2021-03-17] MEDS ORDERED: NS 0.9% w/ 20 MEQ KCL 1,000 ML/1,000 ML BAG IV SCH (09:00)
[2021-03-17] MEDS: Heparin 5,000 UNITS/ML VIAL SC SCH ×3 (09:08→20:46)
[2021-03-17] MEDS: Nicotine 14 MG PATCH TD PRN (11:26)
[2021-03-17] MEDS: Sodium Bicarbonate Tab 325 MG TAB PO SCH ×3 (11:26→20:37)
[2021-03-17] MEDS: DorzolamidE/Timolol 2%/0.5% Ophth Soln 10 ml Bottle EA EYE SCH ×2 (11:26→20:38)
[2021-03-17] MEDS: diphenhydrAMINE 30 GM TUBE TOP PRN (16:19)
[2021-03-17] MEDS: Cefepime 1 GM in Sodium Chloride 0.9% 100 ML IVPB SCH (16:42)
[2021-03-17] MEDS: Potassium Chloride 20 MEQ TAB PO SCH (16:43)
[2021-03-17] MEDS: Latanoprost 0.005% Ophth Soln 2.5 ml Bottle EA EYE SCH (20:37)
[2021-03-17] MEDS: NS 0.9% w/ 20 MEQ KCL 1,000 ML/1,000 ML BAG IV SCH (20:38)
[2021-03-18] MEDS: Cefepime 1 GM in Sodium Chloride 0.9% 100 ML IVPB SCH ×2 (03:04→15:52)
[2021-03-18] MEDS: NS 0.9% w/ 20 MEQ KCL 1,000 ML/1,000 ML BAG IV SCH (03:05)
[2021-03-18 04:20] LABS: Hemoglobin 8.9 g/dL (12.0-16.0); Mean Corpuscular HGB CONC 33.9 g/dL (32.0-36.0); Mean Corpuscular Hemoglobin 33.1 pg (27.0-31.0); Mean Corpuscular Volume 97.4 fL (78.0-98.0); Mean Platelet Volume 8.3 fL (7.4-10.4); Platelet Count 249 thou/uL (130-400); RBC Distribution Width 14.8 % (11.5-14.5); Red Blood Cell (RBC) Count 2.69 mill/uL (4.20-5.40); White Blood Cell (WBC) Count 9.5 thou/uL (4.8-10.8)
[2021-03-18 04:25] LABS: Phosphorus 1.6 mg/dL (2.3-4.7)
[2021-03-18 04:26] LABS: ALT (SGPT) 43 U/L (8-55); AST (SGOT) 69 U/L (5-34); Albumin 2.5 g/dL (3.4-4.8); Alkaline Phosphatase 115 U/L (40-110); Anion Gap 14 mmol/L (10-20); BUN (Urea Nitrogen) 17 mg/dL (9.8-20.1); Bilirubin, Total 0.5 mg/dL (0.2-1.2); CK (CPK) 638 U/L (29-168); Calc. Creatinine Clearance 74 mL/min (70-130); Calcium 7.4 mg/dL (7.8-10.44); Carbon Dioxide 16 mmol/L (23-31); Chloride 111 mmol/L (98-107); Globulin 2.8 g/dL (2.4-3.5); Glucose 113 mg/dL (83-110); Magnesium 2.1 mg/dL (1.6-2.6); Potassium 4.9 mmol/L (3.5-5.1); Protein, Total 5.3 g/dL (5.8-8.1); Sodium 136 mmol/L (136-145)
[2021-03-18 04:42] LABS: Vitamin D, 25 Hydroxy 33.9 ng/ml (> 30.0)
[2021-03-18] MEDS ORDERED: Electrolyte Replacement Protocol 1 EACH FS PRN (04:45)
[2021-03-18 04:53] LABS: Band 4 % (5-11); Eosinophils 2 % (0-10); Lymphocytes 21 % (21-51); MDiff Complete? YES; Monocytes 7 % (0-10); Neutrophil 66 % (42-75)
[2021-03-18] MEDS: PHOS-NAK 1 PKT PACK PO SCH ×2 (05:27→08:46)
[2021-03-18] MEDS ORDERED: Sodium Bicarbonate 100 MEQ in Sodium Chloride 0.45% 1,000 ML IV SCH (08:30)
[2021-03-18] MEDS: Potassium Chloride 20 MEQ TAB PO SCH (08:46)
[2021-03-18] MEDS: Heparin 5,000 UNITS/ML VIAL SC SCH ×3 (08:47→20:18)
[2021-03-18] MEDS: DorzolamidE/Timolol 2%/0.5% Ophth Soln 10 ml Bottle EA EYE SCH ×2 (08:47→21:39)
[2021-03-18] MEDS: Latanoprost 0.005% Ophth Soln 2.5 ml Bottle EA EYE SCH (20:17)
[2021-03-18] MEDS: Melatonin 3 MG TAB PO PRN (20:18)
[2021-03-18] MEDS: Sodium Bicarbonate 100 MEQ in Sodium Chloride 0.45% 1,000 ML IV SCH (20:27)
[2021-03-19] MEDS: Cefepime 1 GM in Sodium Chloride 0.9% 100 ML IVPB SCH ×2 (03:31→15:55)
[2021-03-19] MEDS: Nicotine 14 MG PATCH TD PRN (09:42)
[2021-03-19] MEDS: DorzolamidE/Timolol 2%/0.5% Ophth Soln 10 ml Bottle EA EYE SCH ×2 (09:42→20:17)
[2021-03-19] MEDS: Heparin 5,000 UNITS/ML VIAL SC SCH ×3 (09:43→20:18)
[2021-03-19] MEDS: diphenhydrAMINE 30 GM TUBE TOP PRN (15:55)
[2021-03-19 18:53] LABS: Anion Gap 15 mmol/L (10-20); BUN (Urea Nitrogen) 12 mg/dL (9.8-20.1); Calc. Creatinine Clearance 78 mL/min (70-130); Carbon Dioxide 20 mmol/L (23-31); Chloride 107 mmol/L (98-107); Glucose 110 mg/dL (83-110); Phosphorus 2.1 mg/dL (2.3-4.7); Potassium 4.6 mmol/L (3.5-5.1); Sodium 137 mmol/L (136-145)
[2021-03-19] MEDS: Latanoprost 0.005% Ophth Soln 2.5 ml Bottle EA EYE SCH (20:17)
[2021-03-19] MEDS: Sodium Bicarbonate 100 MEQ in Sodium Chloride 0.45% 1,000 ML IV SCH (21:27)
[2021-03-20] MEDS: Cefepime 1 GM in Sodium Chloride 0.9% 100 ML IVPB SCH ×2 (03:09→17:51)
[2021-03-20 06:27] LABS: Anion Gap 13 mmol/L (10-20); BUN (Urea Nitrogen) 10 mg/dL (9.8-20.1); CK (CPK) 148 U/L (29-168); Calc. Creatinine Clearance 81 mL/min (70-130); Calcium 8.1 mg/dL (7.8-10.44); Carbon Dioxide 20 mmol/L (23-31); Chloride 109 mmol/L (98-107); Glucose 130 mg/dL (83-110); Phosphorus 2.5 mg/dL (2.3-4.7); Potassium 4.7 mmol/L (3.5-5.1); Sodium 137 mmol/L (136-145)
[2021-03-20] MEDS: Heparin 5,000 UNITS/ML VIAL SC SCH (09:44)
[2021-03-20] MEDS: DorzolamidE/Timolol 2%/0.5% Ophth Soln 10 ml Bottle EA EYE SCH ×2 (09:44→22:28)
[2021-03-20] MEDS ORDERED: Polyethylene Glycol 3350 17 GM Packet PO PRN (11:56)
[2021-03-20] MEDS: Senokot S 8.6-50 MG TAB PO SCH (22:27)
[2021-03-20] MEDS: diphenhydrAMINE 25 MG CAP PO PRN (22:27)
[2021-03-20] MEDS: Melatonin 3 MG TAB PO PRN (22:27)
[2021-03-20] MEDS: Latanoprost 0.005% Ophth Soln 2.5 ml Bottle EA EYE SCH (22:28)
[2021-03-21] MEDS: Senokot S 8.6-50 MG TAB PO SCH (08:52)
[2021-03-21] MEDS: diphenhydrAMINE 25 MG CAP PO PRN (08:53)
[2021-03-21] MEDS: DorzolamidE/Timolol 2%/0.5% Ophth Soln 10 ml Bottle EA EYE SCH (08:53)
[2021-03-21] MEDS ORDERED: Enoxaparin Sodium 40 MG/0.4 ML SYRINGE SC SCH (09:00)
[2021-03-21 15:46] VITALS: BP 164/87; TEMP 98.2
== END 2021-03-21 16:41 | DRG 871 ==
LOC: ERS 21:00 → ERHOLD 03-16 00:11 → 3SE 03-16 07:55
PROVIDERS: ADMIT Internal Medicine; ATTEND Internal Medicine
DX: A41.52 Sepsis due to Pseudomonas (principal); G92.8 Other toxic encephalopathy; M62.82 Rhabdomyolysis; N17.9 Acute kidney failure, unspecified; E87.1 Hypo-osmolality and hyponatremia; E87.2 Acidosis; N39.0 Urinary tract infection, site not specified; E78.5 Hyperlipidemia, unspecified; E86.0 Dehydration; M06.9 Rheumatoid arthritis, unspecified; R65.20 Severe sepsis without septic shock; M25.551 Pain in right hip; N18.30 Chronic kidney disease, stage 3 unspecified; F03.90 Unspecified dementia, unspecified severity, without behavioral disturbance, psychotic disturbance, mood disturbance, and anxiety; K21.9 Gastro-esophageal reflux disease without esophagitis; E11.22 Type 2 diabetes mellitus with diabetic chronic kidney disease; R53.81 Other malaise; Z20.822 Contact with and (suspected) exposure to COVID-19; E83.39 Other disorders of phosphorus metabolism; Z79.899 Other long term (current) drug therapy; Z90.710 Acquired absence of both cervix and uterus; Z98.51 Tubal ligation status
CPT/HCPCS: 36415; 36416; 70450; 71045; 72170; 76770; 80048; 80053; 81001; 81015; 82306; 82550; 82553; 82607; 82746; 83605; 83735; 84100; 84443; 84484; 85025; 87040; 87077; 87086; 87186; 93005; 96374; J0692; J0696; J1644; J1650; J3480; J3490; J7050; U0002

== ENCOUNTER 2021-04-27 13:34 | Emergency (ER) | payer MEDICARE, OTHER | END 2021-04-27 15:30 | disposition home or self-care (01) | LOC: ERS 13:34 | DX: K59.00 Constipation, unspecified (principal); E78.5 Hyperlipidemia, unspecified; E11.9 Type 2 diabetes mellitus without complications | CPT/HCPCS: 99283 ==

== ENCOUNTER 2021-05-23 18:04 | Observation (INO) | payer MEDICARE, OTHER ==
[2021-05-23] MEDS ORDERED: Aspirin Chewable 81 MG TAB ONE (19:08)
[2021-05-23] MEDS ORDERED: Nitroglycerin 2% Ointment 1 INCH/1 GM Packet ONE (19:08)
[2021-05-23 19:13] LABS: #Basophils 0.1 thou/uL (0.0-0.2); #Eosinphils 0.4 thou/uL (0.0-0.7); #Monocytes 0.5 thou/uL (0.11-0.59); #Neutrophils 3.8 thou/uL (1.40-6.50); %Basophils 0.9 % (0.0-1.0); %Eosinophils 4.9 % (0.0-10.0); %Lymphocytes 38.9 % (21.0-51.0); %Monocytes 6.6 % (0.0-10.0); %Neutrophils 48.7 % (42.0-75.0); Hemoglobin 12.1 g/dL (12.0-16.0); Mean Corpuscular HGB CONC 33.3 g/dL (32.0-36.0); Mean Corpuscular Hemoglobin 33.2 pg (27.0-31.0); Mean Corpuscular Volume 99.7 fL (78.0-98.0); Platelet Count 281 thou/uL (130-400); RBC Distribution Width 14.5 % (11.5-14.5); Red Blood Cell (RBC) Count 3.66 mill/uL (4.20-5.40); White Blood Cell (WBC) Count 7.8 thou/uL (4.8-10.8)
[2021-05-23 19:51] LABS: ALT (SGPT) 19 U/L (8-55); AST (SGOT) 40 U/L (5-34); Albumin 3.9 g/dL (3.4-4.8); Alkaline Phosphatase 63 U/L (40-110); Anion Gap 14 mmol/L (10-20); BUN (Urea Nitrogen) 14 mg/dL (9.8-20.1); Bilirubin, Total 0.7 mg/dL (0.2-1.2); Calc. Creatinine Clearance 0 mL/min (70-130); Calcium 11.7 mg/dL (7.8-10.44); Carbon Dioxide 27 mmol/L (23-31); Chloride 101 mmol/L (98-107); Globulin 4.9 g/dL (2.4-3.5); Glucose 82 mg/dL (83-110); Potassium 5.2 mmol/L (3.5-5.1); Protein, Total 8.8 g/dL (5.8-8.1); Sodium 137 mmol/L (136-145)
[2021-05-23] MEDS ORDERED: Nitroglycerin 0.4 MG TAB (25 Tab Bottle) SL PRN (20:34)
[2021-05-23] MEDS ORDERED: Dextrose 5% in Water 1,000 ML IV PRN (20:34)
[2021-05-23] MEDS ORDERED: Ondansetron ODT 4 MG TAB PO PRN (20:34)
[2021-05-23] MEDS ORDERED: Ondansetron PF 4 MG/2 ML Vial IVP PRN (20:34)
[2021-05-23] MEDS ORDERED: Acetaminophen 325 MG TAB PO PRN (20:34)
[2021-05-23] MEDS ORDERED: Dextrose 50% Abboject 50 ML SYRINGE SLOW IVP PRN (20:34)
[2021-05-23] MEDS ORDERED: HumaLOG 300 UNITS/3 ML VIAL SC PRN ×2 (20:36)
[2021-05-23] MEDS ORDERED: Lactated Ringer's 1,000 ML IV SCH (21:15)
[2021-05-23 21:31] VITALS: BMI 34.7
[2021-05-23] MEDS: Atorvastatin Calcium 40 MG TAB PO SCH (21:46)
[2021-05-23 22:23] LABS: Hemoglobin A1c 5.6 % (4.0-6.0)
[2021-05-23 22:27] LABS: Troponin I 0.012 ng/mL (< 0.028)
[2021-05-23 23:49] LABS: Amphetamine Not Detected (NotDetected); Barbiturates Screen Not Detected (NotDetected); Benzodiazepine Screen Not Detected (NotDetected); Cocaine Metabolite Screen Not Detected (NotDetected); Methadone Not Detected (NotDetected); Methamphetamine Not Detected (NotDetected); Opiate Screen Not Detected (NotDetected); Oxycodone Screen Not Detected (NotDetected); Phencyclidine (PCP) Not Detected (NotDetected); THC/Cannabinoid Screen Not Detected (NotDetected); Tricyclic Screen Not Detected (NotDetected)
[2021-05-24 02:32] LABS: Troponin I Less than 0.010 ng/mL (< 0.028)
[2021-05-24] MEDS ORDERED: sitaGLIPtin Phosphate 25 MG TAB PO SCH (09:00)
[2021-05-24] MEDS: Aspirin 81 mg Enteric Coated Tablet PO SCH (09:01)
[2021-05-24] MEDS: Enoxaparin Sodium 40 MG/0.4 ML SYRINGE SC SCH (09:01)
[2021-05-24] MEDS: ALOGLIPTIN PO SCH (09:01)
[2021-05-24 10:16] LABS: Anion Gap 11 mmol/L (10-20); BUN (Urea Nitrogen) 16 mg/dL (9.8-20.1); Calc. Creatinine Clearance 55 mL/min (70-130); Calcium 10.3 mg/dL (7.8-10.44); Carbon Dioxide 25 mmol/L (23-31); Cardiac Risk 2.7 (Less than 4.5); Chloride 105 mmol/L (98-107); Cholesterol 126 mg/dl (< 200 Desired); Glucose 112 mg/dL (83-110); HDL Cholesterol 47 mg/dL (>60 Neg Risk); LDL Cholesterol, Calculated 68 mg/dL; Potassium 4.3 mmol/L (3.5-5.1); Sodium 137 mmol/L (136-145); Triglycerides 57 mg/dL (Less than 150)
[2021-05-24] MEDS ORDERED: ADENOSINE 60 MG/20 ML VIAL ONE (10:47)
[2021-05-24 11:02] LABS: ALT (SGPT) 11 U/L (8-55); AST (SGOT) 19 U/L (5-34); Albumin 3.3 g/dL (3.4-4.8); Alkaline Phosphatase 58 U/L (40-110); Anion Gap 11 mmol/L (10-20); BUN (Urea Nitrogen) 15 mg/dL (9.8-20.1); Bilirubin, Total 0.7 mg/dL (0.2-1.2); Calc. Creatinine Clearance 55 mL/min (70-130); Calcium 10.5 mg/dL (7.8-10.44); Carbon Dioxide 24 mmol/L (23-31); Chloride 106 mmol/L (98-107); Globulin 3.6 g/dL (2.4-3.5); Glucose 114 mg/dL (83-110); Potassium 4.4 mmol/L (3.5-5.1); Protein, Total 6.9 g/dL (5.8-8.1); Sodium 137 mmol/L (136-145)
[2021-05-24 11:39] LABS: SARS-CoV-2 PCR by NAA Not Detected (NotDetected)
[2021-05-24] MEDS: Atorvastatin Calcium 40 MG TAB PO SCH (20:22)
[2021-05-25 05:16] LABS: Anion Gap 11 mmol/L (10-20); BUN (Urea Nitrogen) 18 mg/dL (9.8-20.1); Calc. Creatinine Clearance 52 mL/min (70-130); Calcium 9.3 mg/dL (7.8-10.44); Carbon Dioxide 23 mmol/L (23-31); Chloride 107 mmol/L (98-107); Glucose 118 mg/dL (83-110); Sodium 137 mmol/L (136-145)
[2021-05-25] MEDS: Aspirin 81 mg Enteric Coated Tablet PO SCH (08:52)
[2021-05-25] MEDS: Enoxaparin Sodium 40 MG/0.4 ML SYRINGE SC SCH (08:52)
[2021-05-25] MEDS: ALOGLIPTIN PO SCH (08:52)
[2021-05-25] MEDS ORDERED: Polyethylene Glycol 3350 17 GM Packet PO SCH (09:00)
[2021-05-25 16:18] VITALS: BP 134/76; TEMP 98.4
[2021-05-27 16:36] LABS: Alpha 2 - Ur 19.5 % (.); Beta-Ur 25.5 % (.); M-Spike,% Not Observed % (Not Observed); Protein, Urine Less than 4.0 mg/dL (Not Estab.)
[2021-05-27 16:36] LABS: A/G Ratio 0.9 (0.7-1.7); Albumin 3.2 g/dL (2.9-4.4); Alpha 1 0.2 g/dL (0.0-0.4); Alpha 2 0.6 g/dL (0.4-1.0); Beta 0.9 g/dL (0.7-1.3); Gamma 1.9 g/dL (0.4-1.8); Globulin, Total 3.6 g/dL (2.2-3.9); M-Spike 1.1 g/dL (Not Observed)
== END 2021-05-25 18:36 | disposition home or self-care (01) ==
LOC: ERS 18:04 → 2NO 20:10
PROVIDERS: ADMIT Family Medicine; ATTEND Family Medicine
DX: R07.89 Other chest pain (principal); E83.52 Hypercalcemia; E11.22 Type 2 diabetes mellitus with diabetic chronic kidney disease; N18.2 Chronic kidney disease, stage 2 (mild); N17.9 Acute kidney failure, unspecified; E43 Unspecified severe protein-calorie malnutrition; M06.9 Rheumatoid arthritis, unspecified; E78.5 Hyperlipidemia, unspecified; I89.0 Lymphedema, not elsewhere classified; Z20.822 Contact with and (suspected) exposure to COVID-19; M11.212 Other chondrocalcinosis, left shoulder; M19.012 Primary osteoarthritis, left shoulder; M19.011 Primary osteoarthritis, right shoulder; Z79.82 Long term (current) use of aspirin; Z79.84 Long term (current) use of oral hypoglycemic drugs; Z79.899 Other long term (current) drug therapy
CPT/HCPCS: 71045; 78452; 80048 ×2; 80053 ×2; 80061; 80306; 82306; 82962 ×2; 83036; 83880; 83970; 84165; 84166; 84484 ×3; 85025; 93005; 93017; 94760 ×2; 96372 ×2; 99285; A9500; G0378 ×4; U0003; U0005; 36415; 36416; J0153; J1650; J7120

== ENCOUNTER 2021-06-04 09:53 | Outpatient (CLI) | payer MEDICARE, OTHER | END 2021-06-04 09:54 | disposition home or self-care (01) | LOC: CT 09:53 | PROVIDERS: ATTEND Obstetrics & Gynecology | DX: N82.3 Fistula of vagina to large intestine (principal); K44.9 Diaphragmatic hernia without obstruction or gangrene; N28.1 Cyst of kidney, acquired; M47.816 Spondylosis without myelopathy or radiculopathy, lumbar region; M48.061 Spinal stenosis, lumbar region without neurogenic claudication; Q52.4 Other congenital malformations of vagina; Z90.710 Acquired absence of both cervix and uterus | CPT/HCPCS: 74177 ==

== ENCOUNTER 2021-06-08 17:30 | Observation (INO) | payer MEDICARE, OTHER ==
[2021-06-08 18:31] LABS: #Eosinphils 0.3 thou/uL (0.0-0.7); #Lymphocytes 2.1 thou/uL (1.20-3.40); #Monocytes 0.6 thou/uL (0.11-0.59); #Neutrophils 4.4 thou/uL (1.40-6.50); %Basophils 0.4 % (0.0-1.0); %Eosinophils 3.8 % (0.0-10.0); %Lymphocytes 28.6 % (21.0-51.0); %Monocytes 7.5 % (0.0-10.0); %Neutrophils 59.7 % (42.0-75.0); Hemoglobin 11.1 g/dL (12.0-16.0); Mean Corpuscular HGB CONC 33.6 g/dL (32.0-36.0); Mean Corpuscular Hemoglobin 33.9 pg (27.0-31.0); Mean Platelet Volume 7.5 fL (7.4-10.4); Platelet Count 224 thou/uL (130-400); RBC Distribution Width 14.4 % (11.5-14.5); Red Blood Cell (RBC) Count 3.28 mill/uL (4.20-5.40); White Blood Cell (WBC) Count 7.3 thou/uL (4.8-10.8)
[2021-06-08 18:49] LABS: ALT (SGPT) 18 U/L (8-55); AST (SGOT) 25 U/L (5-34); Albumin 3.5 g/dL (3.4-4.8); Alkaline Phosphatase 64 U/L (40-110); Anion Gap 14 mmol/L (10-20); BUN (Urea Nitrogen) 14 mg/dL (9.8-20.1); Bilirubin, Total 0.4 mg/dL (0.2-1.2); Calc. Creatinine Clearance 0 mL/min (70-130); Calcium 9.5 mg/dL (7.8-10.44); Carbon Dioxide 20 mmol/L (23-31); Chloride 104 mmol/L (98-107); Globulin 3.8 g/dL (2.4-3.5); Glucose 97 mg/dL (83-110); Potassium 4.2 mmol/L (3.5-5.1); Protein, Total 7.3 g/dL (5.8-8.1); Sodium 134 mmol/L (136-145)
[2021-06-08] MEDS ORDERED: Acetaminophen 325 MG TAB PO PRN (21:44)
[2021-06-08] MEDS ORDERED: Senokot S 8.6-50 MG TAB PO PRN (21:44)
[2021-06-08] MEDS ORDERED: Dextrose 5% in Water 1,000 ML IV PRN (21:48)
[2021-06-08] MEDS ORDERED: Dextrose 50% Abboject 50 ML SYRINGE SLOW IVP PRN (21:48)
[2021-06-08] MEDS ORDERED: HumaLOG 300 UNITS/3 ML VIAL SC PRN ×2 (21:50)
[2021-06-08 22:12] LABS: Troponin I 0.011 ng/mL (< 0.028)
[2021-06-08 23:30] LABS: SARS-CoV-2 NAA Rapid Test Not Detected (NotDetected)
[2021-06-09 01:30] LABS: Troponin I Less than 0.010 ng/mL (< 0.028)
[2021-06-09 05:12] VITALS: BMI 35.0
[2021-06-09] MEDS ORDERED: Enoxaparin Sodium 40 MG/0.4 ML SYRINGE SC SCH ×2 (05:30→09:00)
[2021-06-09] MEDS ORDERED: Alogliptin 6.25 MG TAB PO SCH (09:00)
[2021-06-09] MEDS ORDERED: metFORMIN 500 MG TAB PO SCH ×2 (09:00)
[2021-06-09] MEDS ORDERED: Aspirin 81 mg Enteric Coated Tablet PO SCH (09:00)
[2021-06-09 11:56] VITALS: BP 122/73; TEMP 97.6
[2021-06-09] MEDS ORDERED: Atorvastatin Calcium 40 MG TAB PO SCH (21:00)
== END 2021-06-09 13:15 | disposition home or self-care (01) ==
LOC: ERS 17:30 → ERHOLD 21:12 → NEURO 06-09 04:12
PROVIDERS: ADMIT Family Medicine; ATTEND Family Medicine
DX: M94.0 Chondrocostal junction syndrome [Tietze] (principal); M06.9 Rheumatoid arthritis, unspecified; E11.22 Type 2 diabetes mellitus with diabetic chronic kidney disease; N18.32 Chronic kidney disease, stage 3b; E78.5 Hyperlipidemia, unspecified; I89.0 Lymphedema, not elsewhere classified; R63.4 Abnormal weight loss; Z68.35 Body mass index [BMI] 35.0-35.9, adult; Z79.82 Long term (current) use of aspirin; Z79.84 Long term (current) use of oral hypoglycemic drugs; Z79.899 Other long term (current) drug therapy; Z20.822 Contact with and (suspected) exposure to COVID-19
CPT/HCPCS: 71045; 80053; 83880; 84484 ×3; 85025; 93005; 93970; 96372; G0378 ×3; U0002; 36415; J1650

== ENCOUNTER 2021-07-12 14:56 | Emergency (ER) | payer MEDICARE, OTHER ==
[2021-07-12 16:46] LABS: #Basophils 0.1 thou/uL (0.0-0.2); #Eosinphils 0.3 thou/uL (0.0-0.7); #Monocytes 0.4 thou/uL (0.11-0.59); %Basophils 0.9 % (0.0-1.0); %Eosinophils 4.2 % (0.0-10.0); %Lymphocytes 25.1 % (21.0-51.0); %Monocytes 5.5 % (0.0-10.0); %Neutrophils 64.3 % (42.0-75.0); Hemoglobin 12.2 g/dL (12.0-16.0); Mean Corpuscular HGB CONC 32.6 g/dL (32.0-36.0); Mean Corpuscular Hemoglobin 33.4 pg (27.0-31.0); Platelet Count 273 thou/uL (130-400); RBC Distribution Width 14.1 % (11.5-14.5); Red Blood Cell (RBC) Count 3.66 mill/uL (4.20-5.40); White Blood Cell (WBC) Count 7.8 thou/uL (4.8-10.8)
[2021-07-12 17:14] LABS: ALT (SGPT) 16 U/L (8-55); AST (SGOT) 31 U/L (5-34); Albumin 3.8 g/dL (3.4-4.8); Alkaline Phosphatase 79 U/L (40-110); Anion Gap 18 mmol/L (10-20); BUN (Urea Nitrogen) 17 mg/dL (9.8-20.1); Bilirubin, Total 0.3 mg/dL (0.2-1.2); Calc. Creatinine Clearance 0 mL/min (70-130); Calcium 9.3 mg/dL (7.8-10.44); Carbon Dioxide 21 mmol/L (23-31); Chloride 104 mmol/L (98-107); Glucose 84 mg/dL (83-110); Potassium 5.6 mmol/L (3.5-5.1); Protein, Total 7.8 g/dL (5.8-8.1); Sodium 137 mmol/L (136-145)
== END 2021-07-12 18:26 | disposition home or self-care (01) ==
LOC: ERS 14:56
DX: R05.9 Cough, unspecified (principal); E11.9 Type 2 diabetes mellitus without complications; E78.5 Hyperlipidemia, unspecified; F17.220 Nicotine dependence, chewing tobacco, uncomplicated; Z79.899 Other long term (current) drug therapy; Z79.82 Long term (current) use of aspirin; Z79.84 Long term (current) use of oral hypoglycemic drugs
CPT/HCPCS: 71045; 80053; 83880; 84484; 85025; 93005

== ENCOUNTER 2021-12-10 22:09 | Emergency (ER) | payer OTHER ==
[2021-12-10 22:49] LABS: #Basophils 0.1 thou/uL (0.0-0.2); #Eosinphils 0.4 thou/uL (0.0-0.7); #Lymphocytes 1.8 thou/uL (1.20-3.40); #Monocytes 0.7 thou/uL (0.11-0.59); #Neutrophils 4.2 thou/uL (1.40-6.50); %Basophils 1.3 % (0.0-1.0); %Eosinophils 5.4 % (0.0-10.0); %Lymphocytes 24.7 % (21.0-51.0); %Monocytes 9.3 % (0.0-10.0); %Neutrophils 59.5 % (42.0-75.0); Hemoglobin 10.6 g/dL (12.0-16.0); Mean Corpuscular Hemoglobin 33.4 pg (27.0-31.0); Mean Platelet Volume 7.6 fL (7.4-10.4); Platelet Count 207 thou/uL (130-400); RBC Distribution Width 13.4 % (11.5-14.5); Red Blood Cell (RBC) Count 3.18 mill/uL (4.20-5.40); White Blood Cell (WBC) Count 7.1 thou/uL (4.8-10.8)
[2021-12-10 22:50] LABS: Bacteria/HPF None Seen HPF (None Seen); Bilirubin Negative (Negative); Blood, Urine Negative (Negative); Clarity Clear (Clear); Glucose, Urine (Dipstick) Normal (Negative); Ketone, Urine Negative (Negative); Leukocyte 25 Leu/uL (Negative); Nitrite Negative (Negative); Protein, Urine (Dipstick) Negative (Neg-Trace); RBC/HPF None Seen HPF (0-3); Specific Gravity, Urine 1.011 (1.002-1.036); Squamous Epithelial 0-3 HPF (0-3); Urobilinogen Normal mg/dL (Less than 2); WBC/HPF 0-3 HPF (0-3); pH, Urine 5.5 (5.0-9.0)
[2021-12-10 22:57] LABS: Amphetamine Not Detected (NotDetected); Barbiturates Screen Not Detected (NotDetected); Benzodiazepine Screen Not Detected (NotDetected); Cocaine Metabolite Screen Not Detected (NotDetected); Methadone Not Detected (NotDetected); Methamphetamine Not Detected (NotDetected); Opiate Screen Not Detected (NotDetected); Oxycodone Screen Not Detected (NotDetected); Phencyclidine (PCP) Not Detected (NotDetected); THC/Cannabinoid Screen Not Detected (NotDetected); Tricyclic Screen Not Detected (NotDetected)
[2021-12-10 23:23] LABS: ALT (SGPT) 18 U/L (8-55); AST (SGOT) 25 U/L (5-34); Albumin 3.6 g/dL (3.4-4.8); Alkaline Phosphatase 77 U/L (40-110); Anion Gap 16 mmol/L (10-20); BUN (Urea Nitrogen) 17 mg/dL (9.8-20.1); Bilirubin, Total 0.3 mg/dL (0.2-1.2); Calc. Creatinine Clearance 0 mL/min (70-130); Calcium 9.6 mg/dL (7.8-10.44); Carbon Dioxide 21 mmol/L (23-31); Chloride 99 mmol/L (98-107); Estimated GFR 37; Globulin 3.6 g/dL (2.4-3.5); Glucose 103 mg/dL (83-110); Protein, Total 7.2 g/dL (5.8-8.1); Sodium 132 mmol/L (136-145)
[2021-12-10] MEDS ORDERED: Ketorolac Tromethamine 30 MG/ML VIAL ONE (23:32)
[2021-12-10] MEDS ORDERED: Acetaminophen 500 MG TAB ONE (23:40)
== END 2021-12-11 00:03 | disposition home or self-care (01) ==
LOC: ERS 22:09
DX: M54.2 Cervicalgia (principal); F17.220 Nicotine dependence, chewing tobacco, uncomplicated; E11.9 Type 2 diabetes mellitus without complications; E78.5 Hyperlipidemia, unspecified
CPT/HCPCS: 36415; 71045; 80053; 80306; 81003; 81015; 83880; 84443; 84484; 85025; 93005; J1885

== ENCOUNTER 2021-12-14 20:13 | Emergency (ER) | payer OTHER | END 2021-12-14 21:50 | disposition left against medical advice (07) | LOC: ERS 20:13 | DX: Z53.21 Procedure and treatment not carried out due to patient leaving prior to being seen by health care provider (principal) ==

== ENCOUNTER 2022-01-02 17:40 | Emergency (ER) | payer OTHER ==
[2022-01-02 18:13] LABS: Bilirubin Negative (Negative); Blood, Urine Negative (Negative); Clarity Clear (Clear); Glucose, Urine (Dipstick) Normal (Negative); Ketone, Urine Negative (Negative); Leukocyte 75 Leu/uL (Negative); Nitrite Negative (Negative); Protein, Urine (Dipstick) Negative (Neg-Trace); RBC/HPF 0-3 HPF (0-3); Specific Gravity, Urine 1.004 (1.002-1.036); Squamous Epithelial 0-3 HPF (0-3); Urobilinogen Normal mg/dL (Less than 2); WBC/HPF 0-3 HPF (0-3); pH, Urine 7.5 (5.0-9.0)
[2022-01-02 18:14] LABS: Bacteria/HPF Rare-Few HPF (None Seen)
[2022-01-02] MEDS ORDERED: Ondansetron PF 4 MG/2 ML Vial ONE (18:20)
[2022-01-02 18:31] LABS: #Eosinphils 0.3 thou/uL (0.0-0.7); #Lymphocytes 1.9 thou/uL (1.20-3.40); #Monocytes 0.6 thou/uL (0.11-0.59); #Neutrophils 4.2 thou/uL (1.40-6.50); %Basophils 0.4 % (0.0-1.0); %Eosinophils 4.5 % (0.0-10.0); %Lymphocytes 27.1 % (21.0-51.0); %Monocytes 8.2 % (0.0-10.0); %Neutrophils 59.9 % (42.0-75.0); Hemoglobin 10.8 g/dL (12.0-16.0); Mean Corpuscular HGB CONC 32.3 g/dL (32.0-36.0); Mean Corpuscular Hemoglobin 32.3 pg (27.0-31.0); Mean Platelet Volume 7.4 fL (7.4-10.4); Platelet Count 205 thou/uL (130-400); RBC Distribution Width 13.4 % (11.5-14.5); Red Blood Cell (RBC) Count 3.33 mill/uL (4.20-5.40); White Blood Cell (WBC) Count 7.1 thou/uL (4.8-10.8)
[2022-01-02 18:51] LABS: ALT (SGPT) 13 U/L (8-55); AST (SGOT) 25 U/L (5-34); Albumin 3.8 g/dL (3.4-4.8); Alkaline Phosphatase 70 U/L (40-110); Anion Gap 15 mmol/L (10-20); BUN (Urea Nitrogen) 13 mg/dL (9.8-20.1); Bilirubin, Total 0.5 mg/dL (0.2-1.2); Calc. Creatinine Clearance 0 mL/min (70-130); Calcium 9.3 mg/dL (7.8-10.44); Carbon Dioxide 25 mmol/L (23-31); Chloride 99 mmol/L (98-107); Estimated GFR 41; Globulin 3.3 g/dL (2.4-3.5); Glucose 84 mg/dL (83-110); Lipase 45 U/L (8-78); Potassium 4.6 mmol/L (3.5-5.1); Protein, Total 7.1 g/dL (5.8-8.1); Sodium 134 mmol/L (136-145)
[2022-01-02] MEDS ORDERED: Ondansetron ODT 4 MG TAB ONE (19:15)
== END 2022-01-02 21:57 | disposition home or self-care (01) ==
LOC: ERS 17:40
DX: K59.00 Constipation, unspecified (principal); R11.0 Nausea; E11.9 Type 2 diabetes mellitus without complications
CPT/HCPCS: 36415; 74176; 80053; 81003; 81015; 83690; 84484; 85025; 93005; J2405; Q0162

== ENCOUNTER 2022-01-20 15:25 | Emergency (ER) | payer OTHER ==
[2022-01-20 16:07] LABS: #Basophils 0.1 thou/uL (0.0-0.2); #Eosinphils 0.4 thou/uL (0.0-0.7); #Lymphocytes 1.8 thou/uL (1.20-3.40); #Monocytes 0.6 thou/uL (0.11-0.59); #Neutrophils 4.8 thou/uL (1.40-6.50); %Basophils 0.8 % (0.0-1.0); %Eosinophils 5.1 % (0.0-10.0); %Lymphocytes 23.4 % (21.0-51.0); %Monocytes 7.3 % (0.0-10.0); %Neutrophils 63.4 % (42.0-75.0); Hemoglobin 10.9 g/dL (12.0-16.0); Mean Corpuscular HGB CONC 32.9 g/dL (32.0-36.0); Mean Platelet Volume 7.6 fL (7.4-10.4); Platelet Count 225 thou/uL (130-400); RBC Distribution Width 13.4 % (11.5-14.5); White Blood Cell (WBC) Count 7.6 thou/uL (4.8-10.8)
[2022-01-20 16:27] LABS: ALT (SGPT) 13 U/L (8-55); AST (SGOT) 23 U/L (5-34); Albumin 3.8 g/dL (3.4-4.8); Alkaline Phosphatase 70 U/L (40-110); Anion Gap 14 mmol/L (10-20); BUN (Urea Nitrogen) 26 mg/dL (9.8-20.1); Bilirubin, Total 0.4 mg/dL (0.2-1.2); CRP (Inflammatory) Less than 0.50 mg/dL (= or < 0.5); Calc. Creatinine Clearance 0 mL/min (70-130); Calcium 10.2 mg/dL (7.8-10.44); Carbon Dioxide 24 mmol/L (23-31); Chloride 100 mmol/L (98-107); Estimated GFR 33; Globulin 3.5 g/dL (2.4-3.5); Glucose 83 mg/dL (83-110); Potassium 4.7 mmol/L (3.5-5.1); Protein, Total 7.3 g/dL (5.8-8.1); Sodium 133 mmol/L (136-145)
[2022-01-20 17:45] LABS: Bilirubin Negative (Negative); Blood, Urine Negative (Negative); Clarity Clear (Clear); Glucose, Urine (Dipstick) Normal (Negative); Ketone, Urine Negative (Negative); Leukocyte 250 Leu/uL (Negative); Nitrite Negative (Negative); Protein, Urine (Dipstick) Negative (Neg-Trace); RBC/HPF 0-3 HPF (0-3); Specific Gravity, Urine 1.006 (1.002-1.036); Squamous Epithelial 0-3 HPF (0-3); Urobilinogen Normal mg/dL (Less than 2); pH, Urine 7.5 (5.0-9.0)
[2022-01-20 17:46] LABS: Bacteria/HPF 1+ HPF (None Seen)
== END 2022-01-20 18:08 | disposition home or self-care (01) ==
LOC: ERS 15:25
DX: E87.1 Hypo-osmolality and hyponatremia (principal); N39.0 Urinary tract infection, site not specified; R20.2 Paresthesia of skin; E11.9 Type 2 diabetes mellitus without complications; Z79.4 Long term (current) use of insulin; Z79.899 Other long term (current) drug therapy
CPT/HCPCS: 36415; 80053; 81003; 81015; 83880; 85025; 86140; 87086; 93005

== ENCOUNTER 2022-03-29 12:32 | Emergency (ER) | payer OTHER ==
[2022-03-29 14:32] LABS: #Eosinphils 0.5 thou/uL (0.0-0.7); #Lymphocytes 1.5 thou/uL (1.20-3.40); #Monocytes 0.4 thou/uL (0.11-0.59); #Neutrophils 3.6 thou/uL (1.40-6.50); %Basophils 0.6 % (0.0-1.0); %Eosinophils 8.7 % (0.0-10.0); %Lymphocytes 24.5 % (21.0-51.0); %Monocytes 7.1 % (0.0-10.0); %Neutrophils 59.1 % (42.0-75.0); Hemoglobin 11.1 g/dL (12.0-16.0); Mean Corpuscular HGB CONC 33.1 g/dL (32.0-36.0); Mean Corpuscular Hemoglobin 33.8 pg (27.0-31.0); Mean Platelet Volume 8.1 fL (7.4-10.4); Platelet Count 203 thou/uL (130-400); RBC Distribution Width 13.4 % (11.5-14.5); Red Blood Cell (RBC) Count 3.27 mill/uL (4.20-5.40); White Blood Cell (WBC) Count 6.2 thou/uL (4.8-10.8)
[2022-03-29 14:46] LABS: ALT (SGPT) 18 U/L (8-55); AST (SGOT) 25 U/L (5-34); Alkaline Phosphatase 60 U/L (40-110); Anion Gap 13 mmol/L (10-20); BUN (Urea Nitrogen) 19 mg/dL (9.8-20.1); Bilirubin, Total 0.5 mg/dL (0.2-1.2); Calc. Creatinine Clearance 0 mL/min (70-130); Calcium 9.9 mg/dL (7.8-10.44); Carbon Dioxide 23 mmol/L (23-31); Chloride 104 mmol/L (98-107); Estimated GFR 47; Globulin 3.7 g/dL (2.4-3.5); Glucose 92 mg/dL (83-110); Potassium 4.6 mmol/L (3.5-5.1); Protein, Total 7.7 g/dL (5.8-8.1); Sodium 135 mmol/L (136-145)
== END 2022-03-29 15:08 | disposition home or self-care (01) ==
LOC: ERS 12:32
DX: E11.22 Type 2 diabetes mellitus with diabetic chronic kidney disease (principal); D64.9 Anemia, unspecified; N18.9 Chronic kidney disease, unspecified; Z79.82 Long term (current) use of aspirin; Z79.4 Long term (current) use of insulin
CPT/HCPCS: 36415; 36416; 80053; 85025; 99284

== ENCOUNTER 2022-04-27 15:06 | Emergency (ER) | payer OTHER ==
[2022-04-27 16:42] LABS: #Basophils 0.1 thou/uL (0.0-0.2); #Eosinphils 0.4 thou/uL (0.0-0.7); #Lymphocytes 1.8 thou/uL (1.20-3.40); #Monocytes 0.5 thou/uL (0.11-0.59); #Neutrophils 5.9 thou/uL (1.40-6.50); %Basophils 0.7 % (0.0-1.0); %Eosinophils 4.9 % (0.0-10.0); %Lymphocytes 20.8 % (21.0-51.0); %Monocytes 5.4 % (0.0-10.0); %Neutrophils 68.2 % (42.0-75.0); Mean Corpuscular HGB CONC 32.2 g/dL (32.0-36.0); Mean Corpuscular Hemoglobin 33.4 pg (27.0-31.0); Mean Platelet Volume 8.3 fL (7.4-10.4); Platelet Count 205 10x3/uL (130-400); RBC Distribution Width 13.3 % (11.5-14.5); White Blood Cell (WBC) Count 8.7 10x3/uL (4.8-10.8)
[2022-04-27 17:18] LABS: ALT (SGPT) 20 U/L (8-55); AST (SGOT) 34 U/L (5-34); Albumin 4.1 g/dL (3.4-4.8); Alkaline Phosphatase 95 U/L (40-110); Anion Gap 19 mmol/L (10-20); BUN (Urea Nitrogen) 23 mg/dL (9.8-20.1); Bilirubin, Total 0.3 mg/dL (0.2-1.2); Calc. Creatinine Clearance 0 mL/min (70-130); Calcium 9.4 mg/dL (7.8-10.44); Carbon Dioxide 20 mmol/L (23-31); Chloride 102 mmol/L (98-107); Estimated GFR 29; Globulin 3.9 g/dL (2.4-3.5); Glucose 112 mg/dL (83-110); Potassium 4.5 mmol/L (3.5-5.1); Sodium 136 mmol/L (136-145)
== END 2022-04-27 22:04 | disposition home or self-care (01) ==
LOC: ERS 15:06
DX: R42 Dizziness and giddiness (principal); I71.21 Aneurysm of the ascending aorta, without rupture; E11.9 Type 2 diabetes mellitus without complications; Z79.82 Long term (current) use of aspirin; Z79.899 Other long term (current) drug therapy
CPT/HCPCS: 36415; 71045; 71275; 80053; 83880; 84484; 85025; 85379; 93005; Q9967

== ENCOUNTER 2022-04-29 18:08 | Emergency (ER) | payer OTHER ==
[2022-04-29 19:15] LABS: #Basophils 0.1 thou/uL (0.0-0.2); #Eosinphils 0.5 thou/uL (0.0-0.7); #Lymphocytes 1.7 thou/uL (1.20-3.40); #Monocytes 0.5 thou/uL (0.11-0.59); #Neutrophils 3.8 thou/uL (1.40-6.50); %Basophils 0.8 % (0.0-1.0); %Eosinophils 7.2 % (0.0-10.0); %Lymphocytes 26.4 % (21.0-51.0); %Monocytes 7.2 % (0.0-10.0); %Neutrophils 58.4 % (42.0-75.0); Hemoglobin 11.4 g/dL (12.0-16.0); Mean Corpuscular HGB CONC 32.7 g/dL (32.0-36.0); Mean Corpuscular Hemoglobin 33.3 pg (27.0-31.0); Mean Platelet Volume 8.3 fL (7.4-10.4); Platelet Count 229 10x3/uL (130-400); RBC Distribution Width 13.2 % (11.5-14.5); Red Blood Cell (RBC) Count 3.42 mill/uL (4.20-5.40); White Blood Cell (WBC) Count 6.5 10x3/uL (4.8-10.8)
[2022-04-29 19:36] LABS: Bilirubin Negative (Negative); Blood, Urine Negative (Negative); Clarity Clear (Clear); Glucose, Urine (Dipstick) Normal (Negative); Ketone, Urine Negative (Negative); Leukocyte Negative Leu/uL (Negative); Nitrite Negative (Negative); Protein, Urine (Dipstick) Negative (Neg-Trace); Specific Gravity, Urine 1.008 (1.002-1.036); Urobilinogen Normal mg/dL (Less than 2)
[2022-04-29 19:37] LABS: ALT (SGPT) 17 U/L (8-55); AST (SGOT) 25 U/L (5-34); Alkaline Phosphatase 69 U/L (40-110); Anion Gap 11 mmol/L (10-20); BUN (Urea Nitrogen) 20 mg/dL (9.8-20.1); Bilirubin, Total 0.4 mg/dL (0.2-1.2); Calc. Creatinine Clearance 0 mL/min (70-130); Calcium 10.8 mg/dL (7.8-10.44); Carbon Dioxide 28 mmol/L (23-31); Chloride 104 mmol/L (98-107); Estimated GFR 37; Globulin 3.9 g/dL (2.4-3.5); Glucose 87 mg/dL (83-110); Lipase 62 U/L (8-78); Potassium 4.3 mmol/L (3.5-5.1); Protein, Total 7.9 g/dL (5.8-8.1); Sodium 139 mmol/L (136-145)
[2022-04-29] MEDS ORDERED: Morphine 4 MG/ML VIAL ONE (20:04)
== END 2022-04-29 20:36 | disposition home or self-care (01) ==
LOC: ERS 18:08
DX: E11.43 Type 2 diabetes mellitus with diabetic autonomic (poly)neuropathy (principal); K31.84 Gastroparesis; F17.220 Nicotine dependence, chewing tobacco, uncomplicated; Z79.82 Long term (current) use of aspirin; Z79.4 Long term (current) use of insulin
CPT/HCPCS: 36415; 80053; 81003; 83605; 83690; 85025; 94760; 96372; 99284; J2270

== ENCOUNTER 2022-05-22 19:25 | Emergency (ER) | payer OTHER ==
[2022-05-22] MEDS ORDERED: Fleet Enema 133 ML BOT FS SCH (20:00)
[2022-05-22] MEDS ORDERED: Bisacodyl 5 MG TAB PO SCH (20:00)
[2022-05-22] MEDS ORDERED: Polyethylene Glycol 3350 17 GM Packet PO SCH (20:00)
== END 2022-05-22 21:23 | disposition home or self-care (01) ==
LOC: ERS 19:25
DX: K59.00 Constipation, unspecified (principal); E11.9 Type 2 diabetes mellitus without complications; F17.220 Nicotine dependence, chewing tobacco, uncomplicated
CPT/HCPCS: 99283

== ENCOUNTER 2022-06-30 15:39 | Emergency (ER) | payer OTHER ==
[2022-06-30 17:42] LABS: Amphetamine Not Detected (NotDetected); Barbiturates Screen Not Detected (NotDetected); Benzodiazepine Screen Not Detected (NotDetected); Cocaine Metabolite Screen Not Detected (NotDetected); Methadone Not Detected (NotDetected); Methamphetamine Not Detected (NotDetected); Opiate Screen Not Detected (NotDetected); Oxycodone Screen Not Detected (NotDetected); Phencyclidine (PCP) Not Detected (NotDetected); THC/Cannabinoid Screen Not Detected (NotDetected); Tricyclic Screen Not Detected (NotDetected)
[2022-06-30 17:52] LABS: #Basophils 0.1 thou/uL (0.0-0.2); #Eosinphils 0.4 thou/uL (0.0-0.7); #Lymphocytes 1.9 thou/uL (1.20-3.40); #Monocytes 0.5 thou/uL (0.11-0.59); #Neutrophils 4.2 thou/uL (1.40-6.50); %Basophils 0.9 % (0.0-1.0); %Eosinophils 5.3 % (0.0-10.0); %Lymphocytes 27.5 % (21.0-51.0); %Monocytes 6.4 % (0.0-10.0); %Neutrophils 59.9 % (42.0-75.0); Mean Corpuscular HGB CONC 33.3 g/dL (32.0-36.0); Mean Corpuscular Hemoglobin 33.8 pg (27.0-31.0); Platelet Count 224 10x3/uL (130-400); Red Blood Cell (RBC) Count 3.55 mill/uL (4.20-5.40)
[2022-06-30 18:16] LABS: Acetaminophen Less than 10.0 mcg/mL (10.0-30.0); Alcohol Less than 10 mg/dL (Less than 10); Salicylate Less than 8.0 mg/dL (15.0-30.0)
[2022-06-30 18:18] LABS: ALT (SGPT) 19 U/L (8-55); AST (SGOT) 30 U/L (5-34); Albumin 4.2 g/dL (3.4-4.8); Alkaline Phosphatase 80 U/L (40-110); Anion Gap 13 mmol/L (10-20); BUN (Urea Nitrogen) 23 mg/dL (9.8-20.1); Bilirubin, Total 0.6 mg/dL (0.2-1.2); CK (CPK) 277 U/L (29-168); Calc. Creatinine Clearance 0 mL/min (70-130); Calcium 10.6 mg/dL (7.8-10.44); Carbon Dioxide 24 mmol/L (23-31); Chloride 104 mmol/L (98-107); Estimated GFR 33; Globulin 4.1 g/dL (2.4-3.5); Glucose 70 mg/dL (83-110); Lipase 64 U/L (8-78); Potassium 4.1 mmol/L (3.5-5.1); Protein, Total 8.3 g/dL (5.8-8.1); Sodium 137 mmol/L (136-145)
== END 2022-06-30 19:47 | disposition home or self-care (01) ==
LOC: ERS 15:39
DX: R07.9 Chest pain, unspecified (principal); E11.9 Type 2 diabetes mellitus without complications; F17.220 Nicotine dependence, chewing tobacco, uncomplicated
CPT/HCPCS: 36415; 71045; 80053; 80306; 80307; 82550; 83690; 84443; 84484; 85025; 93005

== ENCOUNTER 2022-07-07 16:54 | Emergency (ER) | payer OTHER ==
[2022-07-07 17:44] LABS: #Basophils 0.1 thou/uL (0.0-0.2); #Eosinphils 0.4 thou/uL (0.0-0.7); #Monocytes 0.4 thou/uL (0.11-0.59); #Neutrophils 4.1 thou/uL (1.40-6.50); %Basophils 0.9 % (0.0-1.0); %Eosinophils 5.7 % (0.0-10.0); %Lymphocytes 28.3 % (21.0-51.0); %Monocytes 5.4 % (0.0-10.0); %Neutrophils 59.8 % (42.0-75.0); Hemoglobin 12.2 g/dL (12.0-16.0); Mean Corpuscular HGB CONC 33.8 g/dL (32.0-36.0); Mean Platelet Volume 7.9 fL (7.4-10.4); Platelet Count 219 10x3/uL (130-400); RBC Distribution Width 14.1 % (11.5-14.5); Red Blood Cell (RBC) Count 3.59 mill/uL (4.20-5.40); White Blood Cell (WBC) Count 6.9 10x3/uL (4.8-10.8)
[2022-07-07 18:04] LABS: ALT (SGPT) 24 U/L (8-55); AST (SGOT) 35 U/L (5-34); Albumin 4.1 g/dL (3.4-4.8); Alkaline Phosphatase 67 U/L (40-110); Anion Gap 15 mmol/L (10-20); BUN (Urea Nitrogen) 25 mg/dL (9.8-20.1); Bilirubin, Total 0.6 mg/dL (0.2-1.2); Calc. Creatinine Clearance 0 mL/min (70-130); Calcium 10.8 mg/dL (7.8-10.44); Carbon Dioxide 26 mmol/L (23-31); Chloride 97 mmol/L (98-107); Estimated GFR 35; Globulin 4.1 g/dL (2.4-3.5); Glucose 93 mg/dL (83-110); Lipase 69 U/L (8-78); Potassium 4.1 mmol/L (3.5-5.1); Protein, Total 8.2 g/dL (5.8-8.1); Sodium 134 mmol/L (136-145)
== END 2022-07-07 19:07 | disposition home or self-care (01) ==
LOC: ERS 16:54
DX: R07.9 Chest pain, unspecified (principal); E11.9 Type 2 diabetes mellitus without complications; F17.220 Nicotine dependence, chewing tobacco, uncomplicated
CPT/HCPCS: 36415; 71045; 80053; 83690; 84484; 85025; 93005

== ENCOUNTER 2022-07-25 19:14 | Emergency (ER) | payer OTHER ==
[2022-07-25 19:56] LABS: #Basophils 0.1 thou/uL (0.0-0.2); #Eosinphils 0.5 thou/uL (0.0-0.7); #Monocytes 0.5 thou/uL (0.11-0.59); #Neutrophils 4.1 thou/uL (1.40-6.50); %Basophils 1.2 % (0.0-1.0); %Lymphocytes 27.4 % (21.0-51.0); %Neutrophils 57.5 % (42.0-75.0); Hemoglobin 11.5 g/dL (12.0-16.0); Mean Corpuscular HGB CONC 33.1 g/dL (32.0-36.0); Mean Corpuscular Hemoglobin 33.5 pg (27.0-31.0); Mean Platelet Volume 7.4 fL (7.4-10.4); Platelet Count 233 10x3/uL (130-400); Red Blood Cell (RBC) Count 3.43 mill/uL (4.20-5.40); White Blood Cell (WBC) Count 7.1 10x3/uL (4.8-10.8)
[2022-07-25 20:16] LABS: ALT (SGPT) 22 U/L (8-55); AST (SGOT) 30 U/L (5-34); Alkaline Phosphatase 78 U/L (40-110); Anion Gap 14 mmol/L (10-20); BUN (Urea Nitrogen) 18 mg/dL (9.8-20.1); Bilirubin, Total 0.4 mg/dL (0.2-1.2); Calc. Creatinine Clearance 0 mL/min (70-130); Calcium 9.9 mg/dL (7.8-10.44); Carbon Dioxide 22 mmol/L (23-31); Chloride 101 mmol/L (98-107); Estimated GFR 38; Globulin 3.8 g/dL (2.4-3.5); Glucose 83 mg/dL (83-110); Lipase 53 U/L (8-78); Magnesium 1.6 mg/dL (1.6-2.6); Potassium 4.3 mmol/L (3.5-5.1); Protein, Total 7.8 g/dL (5.8-8.1); Sodium 133 mmol/L (136-145)
== END 2022-07-25 22:07 | disposition home or self-care (01) ==
LOC: ERS 19:14
DX: R07.89 Other chest pain (principal); E11.9 Type 2 diabetes mellitus without complications; F17.220 Nicotine dependence, chewing tobacco, uncomplicated
CPT/HCPCS: 36415; 71045; 80053; 83690; 83735; 84484; 85025; 93005

== ENCOUNTER 2022-08-20 18:13 | Emergency (ER) | payer OTHER ==
[2022-08-20 19:10] LABS: #Eosinphils 0.6 thou/uL (0.0-0.7); #Lymphocytes 1.9 thou/uL (1.20-3.40); #Monocytes 0.6 thou/uL (0.11-0.59); #Neutrophils 3.3 thou/uL (1.40-6.50); %Basophils 0.4 % (0.0-1.0); %Eosinophils 9.9 % (0.0-10.0); %Lymphocytes 29.6 % (21.0-51.0); %Monocytes 8.9 % (0.0-10.0); %Neutrophils 51.2 % (42.0-75.0); Mean Corpuscular Hemoglobin 34.3 pg (27.0-31.0); Platelet Count 135 10x3/uL (130-400); RBC Distribution Width 14.5 % (11.5-14.5); Red Blood Cell (RBC) Count 3.49 mill/uL (4.20-5.40); White Blood Cell (WBC) Count 6.5 10x3/uL (4.8-10.8)
[2022-08-20 19:45] LABS: ALT (SGPT) 23 U/L (8-55); AST (SGOT) 33 U/L (5-34); Albumin 3.7 g/dL (3.4-4.8); Alkaline Phosphatase 81 U/L (40-110); Anion Gap 16 mmol/L (10-20); BUN (Urea Nitrogen) 19 mg/dL (9.8-20.1); Bilirubin, Total 0.3 mg/dL (0.2-1.2); Calc. Creatinine Clearance 0 mL/min (70-130); Calcium 9.3 mg/dL (7.8-10.44); Carbon Dioxide 21 mmol/L (23-31); Chloride 107 mmol/L (98-107); Estimated GFR 35; Globulin 3.8 g/dL (2.4-3.5); Glucose 91 mg/dL (83-110); Potassium 4.2 mmol/L (3.5-5.1); Protein, Total 7.5 g/dL (5.8-8.1); Sodium 140 mmol/L (136-145)
== END 2022-08-20 20:30 | disposition home or self-care (01) ==
LOC: ERS 18:13
DX: R07.89 Other chest pain (principal); E11.9 Type 2 diabetes mellitus without complications; I10 Essential (primary) hypertension; F17.220 Nicotine dependence, chewing tobacco, uncomplicated
CPT/HCPCS: 36415; 71045; 80053; 84484; 85025; 93005

== ENCOUNTER 2023-03-02 12:04 | Emergency (ER) | payer OTHER, MEDICAID ==
[2023-03-02] MEDS ORDERED: Aspirin Chewable 81 MG TAB ONE (12:33)
[2023-03-02 13:12] LABS: #Basophils 0.1 thou/uL (0.0-0.2); #Eosinphils 0.3 thou/uL (0.0-0.7); #Monocytes 0.5 thou/uL (0.11-0.59); %Eosinophils 4.3 % (0.0-10.0); %Lymphocytes 22.5 % (21.0-51.0); %Monocytes 8.2 % (0.0-10.0); %Neutrophils 63.8 % (42.0-75.0); Hematocrit 36.5 % (36.0-47.0); Hemoglobin 11.9 g/dL (12.0-16.0); Mean Corpuscular HGB CONC 32.6 g/dL (32.0-36.0); Mean Corpuscular Hemoglobin 32.5 pg (27.0-31.0); Mean Corpuscular Volume 99.7 fl (78.0-98.0); Mean Platelet Volume 9.9 fL (7.4-10.4); Platelet Count 220 10x3/uL (130-400); RBC Distribution Width 15.2 % (11.5-14.5); Red Blood Cell (RBC) Count 3.66 mill/uL (4.20-5.40); White Blood Cell (WBC) Count 6.2 10x3/uL (4.8-10.8)
[2023-03-02 13:33] LABS: Troponin I Less than 0.010 ng/mL (< 0.028)
[2023-03-02 13:36] LABS: ALT (SGPT) 25 U/L (8-55); AST (SGOT) 35 U/L (5-34); Albumin 3.7 g/dL (3.4-4.8); Alkaline Phosphatase 98 U/L (40-110); Anion Gap 15 mmol/L (10-20); BUN (Urea Nitrogen) 15 mg/dL (9.8-20.1); Bilirubin, Total 0.4 mg/dL (0.2-1.2); Calc. Creatinine Clearance 0 mL/min (70-130); Calcium 9.6 mg/dL (7.8-10.44); Carbon Dioxide 20 mmol/L (23-31); Chloride 105 mmol/L (98-107); Estimated GFR 39; Globulin 4.1 g/dL (2.4-3.5); Glucose 138 mg/dL (83-110); Lipase 26 U/L (8-78); Potassium 4.4 mmol/L (3.5-5.1); Protein, Total 7.8 g/dL (5.8-8.1); Sodium 136 mmol/L (136-145)
[2023-03-02 13:45] LABS: Bacteria/HPF None Seen HPF (None Seen); Bilirubin Negative (Negative); Blood, Urine Negative (Negative); CAUTI Indications for Culture Fever or rigors; Clarity Clear (Clear); Glucose, Urine (Dipstick) Normal (Negative); Ketone, Urine Negative (Negative); Leukocyte 25 Leu/uL (Negative); Nitrite Negative (Negative); Protein, Urine (Dipstick) Negative (Neg-Trace); RBC/HPF 0-3 HPF (0-3); Specific Gravity, Urine 1.011 (1.002-1.036); Squamous Epithelial 0-3 HPF (0-3); Urobilinogen Normal mg/dL (Less than 2); WBC/HPF 0-3 HPF (0-3)
[2023-03-02 13:57] LABS: Urine Culture Reflex No No
[2023-03-02] MEDS ORDERED: Iopamidol-370 76% 500 ML MDV (1 ML CHARGE) ONE (14:23)
[2023-03-02 17:19] LABS: Troponin I 0.016 ng/mL (< 0.028)
== END 2023-03-02 20:33 | disposition home or self-care (01) ==
LOC: ERS 12:04
DX: F43.9 Reaction to severe stress, unspecified (principal); F41.9 Anxiety disorder, unspecified; E11.9 Type 2 diabetes mellitus without complications; I10 Essential (primary) hypertension; Z87.891 Personal history of nicotine dependence; Z79.82 Long term (current) use of aspirin; Z79.899 Other long term (current) drug therapy
CPT/HCPCS: 36415; 71045; 71275; 80053; 81001; 83690; 83880; 84484; 85025; 85379; 93005; Q9967

== ENCOUNTER 2023-03-12 17:47 | Emergency (ER) | payer OTHER, MEDICAID | END 2023-03-12 21:39 | disposition home or self-care (01) | LOC: ERS 17:47 | DX: R06.02 Shortness of breath (principal); E11.9 Type 2 diabetes mellitus without complications; I10 Essential (primary) hypertension; Z87.891 Personal history of nicotine dependence | CPT/HCPCS: 71046 ==

== ENCOUNTER 2023-06-14 16:15 | Emergency (ER) | payer OTHER, MEDICAID ==
[2023-06-14] MEDS ORDERED: Ketorolac Tromethamine 30 MG (1 mL) VIAL ONE (17:08)
[2023-06-14] MEDS ORDERED: Ondansetron ODT 4 MG TAB ONE (17:09)
[2023-06-14 18:08] LABS: #Basophils 0.1 thou/uL (0.0-0.2); #Eosinphils 0.3 thou/uL (0.0-0.7); #Monocytes 0.3 thou/uL (0.11-0.59); #Neutrophils 3.8 thou/uL (1.40-6.50); %Eosinophils 4.8 % (0.0-10.0); %Neutrophils 61.9 % (42.0-75.0); Hematocrit 35.8 % (36.0-47.0); Mean Corpuscular HGB CONC 33.5 g/dL (32.0-36.0); Mean Corpuscular Hemoglobin 32.1 pg (27.0-31.0); Mean Corpuscular Volume 95.7 fl (78.0-98.0); Mean Platelet Volume 9.7 fL (7.4-10.4); Platelet Count 244 10x3/uL (130-400); RBC Distribution Width 15.8 % (11.5-14.5); Red Blood Cell (RBC) Count 3.74 mill/uL (4.20-5.40); White Blood Cell (WBC) Count 6.2 10x3/uL (4.8-10.8)
[2023-06-14 18:30] LABS: ALT (SGPT) 18 U/L (8-55); AST (SGOT) 29 U/L (5-34); Albumin 4.1 g/dL (3.4-4.8); Alkaline Phosphatase 59 U/L (40-110); Anion Gap 15 mmol/L (10-20); BUN (Urea Nitrogen) 20 mg/dL (9.8-20.1); Bilirubin, Total 0.5 mg/dL (0.2-1.2); Calc. Creatinine Clearance 0 mL/min (70-130); Calcium 9.6 mg/dL (7.8-10.44); Carbon Dioxide 23 mmol/L (23-31); Chloride 103 mmol/L (98-107); Estimated GFR 36; Globulin 3.9 g/dL (2.4-3.5); Glucose 103 mg/dL (83-110); Potassium 3.8 mmol/L (3.5-5.1); Sodium 137 mmol/L (136-145)
[2023-06-14 18:34] LABS: Troponin I 0.011 ng/mL (< 0.028)
== END 2023-06-14 19:18 | disposition home or self-care (01) ==
LOC: ERS 16:15
DX: F03.90 Unspecified dementia, unspecified severity, without behavioral disturbance, psychotic disturbance, mood disturbance, and anxiety (principal); E11.9 Type 2 diabetes mellitus without complications; I10 Essential (primary) hypertension; Z87.891 Personal history of nicotine dependence
CPT/HCPCS: 36415; 71045; 80053; 83880; 84484; 85025; 93970; 96372; J1885; Q0162

== ENCOUNTER 2023-07-23 14:38 | Emergency (ER) | payer MEDICAID, OTHER ==
[2023-07-23 16:14] LABS: Influenza A by NAA Not Detected (NotDetected); Influenza B by NAA Not Detected (NotDetected); SARS-CoV-2 NAA Rapid Test Not Detected (NotDetected)
[2023-07-23 16:47] LABS: Bacteria/HPF None Seen HPF (None Seen); Bilirubin Negative (Negative); Blood, Urine Negative (Negative); CAUTI Indications for Culture Pelvic or flank pain; Clarity Clear (Clear); Glucose, Urine (Dipstick) Normal (Negative); Ketone, Urine Negative (Negative); Leukocyte 75 Leu/uL (Negative); Nitrite Negative (Negative); Protein, Urine (Dipstick) Negative (Neg-Trace); RBC/HPF 0-3 HPF (0-3); Specific Gravity, Urine 1.013 (1.002-1.036); Squamous Epithelial 0-3 HPF (0-3); Urobilinogen Normal mg/dL (Less than 2); WBC/HPF 0-3 HPF (0-3)
[2023-07-23 16:51] LABS: #Eosinphils 0.1 thou/uL (0.0-0.7); #Monocytes 0.5 thou/uL (0.11-0.59); %Basophils 0.2 % (0.0-1.0); %Eosinophils 0.5 % (0.0-10.0); %Lymphocytes 3.4 % (21.0-51.0); %Neutrophils 91.6 % (42.0-75.0); Hemoglobin 12.6 g/dL (12.0-16.0); Mean Corpuscular Hemoglobin 32.9 pg (27.0-31.0); Mean Platelet Volume 9.7 fL (7.4-10.4); Platelet Count 198 10x3/uL (130-400); RBC Distribution Width 15.4 % (11.5-14.5); Red Blood Cell (RBC) Count 3.83 mill/uL (4.20-5.40); White Blood Cell (WBC) Count 13.1 10x3/uL (4.8-10.8)
[2023-07-23 16:56] LABS: Urine Culture Reflex No No
[2023-07-23 17:19] LABS: ALT (SGPT) 24 U/L (8-55); AST (SGOT) 40 U/L (5-34); Albumin 4.3 g/dL (3.4-4.8); Alkaline Phosphatase 83 U/L (40-110); Anion Gap 14 mmol/L (10-20); BUN (Urea Nitrogen) 19 mg/dL (9.8-20.1); Bilirubin, Total 0.8 mg/dL (0.2-1.2); Calc. Creatinine Clearance 0 mL/min (70-130); Calcium 9.4 mg/dL (7.8-10.44); Carbon Dioxide 20 mmol/L (23-31); Chloride 99 mmol/L (98-107); Estimated GFR 35; Globulin 3.7 g/dL (2.4-3.5); Glucose 122 mg/dL (83-110); Potassium 4.3 mmol/L (3.5-5.1); Sodium 129 mmol/L (136-145)
== END 2023-07-23 18:04 | disposition home or self-care (01) ==
LOC: ERS 14:38
DX: E87.1 Hypo-osmolality and hyponatremia (principal); I12.9 Hypertensive chronic kidney disease with stage 1 through stage 4 chronic kidney disease, or unspecified chronic kidney disease; E11.22 Type 2 diabetes mellitus with diabetic chronic kidney disease; N18.9 Chronic kidney disease, unspecified; R68.83 Chills (without fever); Z79.899 Other long term (current) drug therapy; Z87.891 Personal history of nicotine dependence
CPT/HCPCS: 0240U; 80053; 81001; 85025; 87077; 87086; 99284; 36415

== ENCOUNTER 2023-10-14 14:03 | Inpatient (IN) | payer OTHER ==
[2023-10-14 16:13] LABS: #Basophils 0.05 10x3/uL (0.0-0.2); %Basophils 0.8 % (0.0-1.0); %Eosinophils 5.2 % (0.0-10.0); %Lymphocytes 26.9 % (21.0-51.0); %Monocytes 8.2 % (0.0-10.0); %Neutrophils 58.7 % (42.0-75.0); Hematocrit 36.6 % (36.0-47.0); Mean Corpuscular HGB CONC 32.8 g/dL (32.0-36.0); Mean Corpuscular Hemoglobin 32.6 pg (27.0-31.0); Mean Corpuscular Volume 99.5 fL (78.0-98.0); Platelet Count 261 10x3/uL (130-400); RBC Distribution Width 16.2 % (11.5-14.5); Red Blood Cell (RBC) Count 3.68 mill/uL (4.20-5.40)
[2023-10-14 16:36] LABS: ALT (SGPT) 17 U/L (8-55); AST (SGOT) 28 U/L (5-34); Albumin 3.9 g/dL (3.4-4.8); Alkaline Phosphatase 91 U/L (40-110); Anion Gap 15 mmol/L (10-20); BUN (Urea Nitrogen) 18 mg/dL (9.8-20.1); Bilirubin, Total 0.5 mg/dL (0.2-1.2); Calc. Creatinine Clearance 0 mL/min (70-130); Calcium 10.1 mg/dL (7.8-10.44); Carbon Dioxide 24 mmol/L (23-31); Chloride 103 mmol/L (98-107); Estimated GFR 34; Glucose 88 mg/dL (83-110); Potassium 5.3 mmol/L (3.5-5.1); Protein, Total 7.9 g/dL (5.8-8.1); Sodium 137 mmol/L (136-145)
[2023-10-14 16:37] LABS: Troponin I Less than 0.010 ng/mL (< 0.028)
[2023-10-14] MEDS ORDERED: Furosemide 40 MG (4 mL) VIAL ONE (18:48)
[2023-10-14] MEDS ORDERED: Dextrose 50% Abboject 50 ML SYRINGE SLOW IVP PRN (19:15)
[2023-10-14] MEDS ORDERED: Glucagon 1 MG/ML KIT IM PRN (19:15)
[2023-10-14] MEDS ORDERED: HumaLOG 300 UNITS/3 ML VIAL SC PRN ×2 (19:15)
[2023-10-14] MEDS ORDERED: Dextrose 5% in Water 1,000 ML IV PRN (19:15)
[2023-10-14 19:36] LABS: Troponin I Less than 0.010 ng/mL (< 0.028)
[2023-10-14] MEDS: Atorvastatin Calcium 40 MG TAB PO SCH (23:14)
[2023-10-14] MEDS: Dextrose 50% Abboject 50 ML SYRINGE SLOW IVP SCH (23:14)
[2023-10-15 01:10] VITALS: BMI 32.4
[2023-10-15 01:39] LABS: Anion Gap 15 mmol/L (10-20); BUN (Urea Nitrogen) 17 mg/dL (9.8-20.1); Calc. Creatinine Clearance 49 mL/min (70-130); Calcium 10.4 mg/dL (7.8-10.44); Carbon Dioxide 24 mmol/L (23-31); Chloride 104 mmol/L (98-107); Estimated GFR 38; Glucose 114 mg/dL (83-110); Sodium 139 mmol/L (136-145)
[2023-10-15 01:40] LABS: Magnesium 1.9 mg/dL (1.6-2.6)
[2023-10-15 01:41] LABS: Cardiac Risk 2.4 (Less than 4.5)
[2023-10-15 01:43] LABS: Troponin I Less than 0.010 ng/mL (< 0.028)
[2023-10-15 01:51] LABS: Hemoglobin A1c 6.1 % (4.0-6.0)
[2023-10-15] MEDS: Aspirin 81 mg Enteric Coated Tablet PO SCH (08:38)
[2023-10-15] MEDS: Enoxaparin 40 MG (0.4 mL) SYRINGE SC SCH (08:38)
[2023-10-15] MEDS: Acetaminophen 325 MG TAB PO PRN (20:31)
[2023-10-16] MEDS: Pantoprazole DR 40 MG TAB PO SCH (03:57)
[2023-10-16 04:21] LABS: Anion Gap 15 mmol/L (10-20); BUN (Urea Nitrogen) 21 mg/dL (9.8-20.1); Calc. Creatinine Clearance 51 mL/min (70-130); Carbon Dioxide 20 mmol/L (23-31); Chloride 106 mmol/L (98-107); Estimated GFR 39; Potassium 4.1 mmol/L (3.5-5.1); Sodium 137 mmol/L (136-145)
[2023-10-16 04:22] LABS: Calcium 9.2 mg/dL (7.8-10.44); Glucose 124 mg/dL (83-110)
[2023-10-16 04:27] LABS: Troponin I 0.011 ng/mL (< 0.028)
[2023-10-17 08:11] VITALS: TEMP 98.6
[2023-10-17] MEDS: Lorazepam 0.5 MG TAB PO PRN (09:01)
[2023-10-17] MEDS ORDERED: Regadenoson 0.4 MG/5 ML SYRINGE ONE (09:27)
[2023-10-17 10:43] VITALS: BP 120/57
== END 2023-10-17 14:50 | disposition home or self-care (01) | DRG 313 ==
LOC: ERS 14:03 → 2SW 19:15 → OBSVTOIN 10-16 08:56
PROVIDERS: ADMIT Emergency Medicine; ATTEND Emergency Medicine
DX: R07.89 Other chest pain (principal); R00.1 Bradycardia, unspecified; E87.5 Hyperkalemia; N18.31 Chronic kidney disease, stage 3a; E11.22 Type 2 diabetes mellitus with diabetic chronic kidney disease; E78.5 Hyperlipidemia, unspecified; I89.0 Lymphedema, not elsewhere classified; Z79.82 Long term (current) use of aspirin; Z79.899 Other long term (current) drug therapy; Z90.710 Acquired absence of both cervix and uterus; Z82.49 Family history of ischemic heart disease and other diseases of the circulatory system; Z98.51 Tubal ligation status; F41.9 Anxiety disorder, unspecified; Z87.891 Personal history of nicotine dependence; I12.9 Hypertensive chronic kidney disease with stage 1 through stage 4 chronic kidney disease, or unspecified chronic kidney disease
CPT/HCPCS: 36415; 36416; 71046; 78452; 80048; 80053; 80061; 83036; 83735; 84100; 84443; 84484; 85025; 93005; 93010; 93017; A9502; J1650; J1940; J2785; J7999

== ENCOUNTER 2023-11-21 20:29 | Emergency (ER) | payer MEDICARE, OTHER ==
[2023-11-21 22:39] LABS: #Basophils 0.05 10x3/uL (0.0-0.2); %Basophils 0.7 % (0.0-1.0); %Eosinophils 8.1 % (0.0-10.0); %Lymphocytes 25.6 % (21.0-51.0); %Monocytes 9.6 % (0.0-10.0); %Neutrophils 55.9 % (42.0-75.0); Hematocrit 31.7 % (36.0-47.0); Hemoglobin 10.9 g/dL (12.0-16.0); Mean Corpuscular HGB CONC 34.4 g/dL (32.0-36.0); Mean Corpuscular Hemoglobin 32.9 pg (27.0-31.0); Mean Corpuscular Volume 95.8 fL (78.0-98.0); Mean Platelet Volume 10.5 fL (7.4-10.4); Platelet Count 264 10x3/uL (130-400); RBC Distribution Width 15.3 % (11.5-14.5); Red Blood Cell (RBC) Count 3.31 mill/uL (4.20-5.40)
[2023-11-21 23:00] LABS: ALT (SGPT) 11 U/L (8-55); AST (SGOT) 24 U/L (5-34); Albumin 3.6 g/dL (3.4-4.8); Alkaline Phosphatase 81 U/L (40-110); Anion Gap 15 mmol/L (10-20); BUN (Urea Nitrogen) 17 mg/dL (9.8-20.1); Bilirubin, Total 0.5 mg/dL (0.2-1.2); Calc. Creatinine Clearance 0 mL/min (70-130); Calcium 9.9 mg/dL (7.8-10.44); Carbon Dioxide 24 mmol/L (23-31); Chloride 104 mmol/L (98-107); Estimated GFR 32; Glucose 128 mg/dL (83-110); Potassium 4.3 mmol/L (3.5-5.1); Protein, Total 7.6 g/dL (5.8-8.1); Sodium 139 mmol/L (136-145)
[2023-11-22 02:00] LABS: Bacteria/HPF None Seen HPF (None Seen); Bilirubin Negative (Negative); Blood, Urine Negative (Negative); CAUTI Indications for Culture Pelvic or flank pain; Clarity Clear (Clear); Glucose, Urine (Dipstick) Normal (Negative); Ketone, Urine Negative (Negative); Leukocyte 75 Leu/uL (Negative); Nitrite Negative (Negative); Protein, Urine (Dipstick) Negative (Neg-Trace); RBC/HPF 0-3 HPF (0-3); Squamous Epithelial 0-3 HPF (0-3); Urobilinogen Normal mg/dL (Less than 2); WBC/HPF 0-3 HPF (0-3)
[2023-11-22 02:04] LABS: Urine Culture Reflex No No
[2023-11-22] MEDS ORDERED: Mineral Oil ENEMA ONE (03:05)
[2023-11-22] MEDS ORDERED: Iopamidol-370 76% 500 ML MDV (1 ML CHARGE) ONE (13:54)
== END 2023-11-22 04:25 ==
LOC: EEVIPCON 20:29 → ERS 20:29
DX: K62.89 Other specified diseases of anus and rectum (principal); K59.00 Constipation, unspecified; I10 Essential (primary) hypertension; E11.9 Type 2 diabetes mellitus without complications; Z87.891 Personal history of nicotine dependence; R54 Age-related physical debility
CPT/HCPCS: 36416; 74177; 80053; 81001; 85025; 93005; Q9967

== ENCOUNTER 2024-06-22 13:37 | Outpatient (CLI) | payer MEDICARE, OTHER | END 2024-06-22 13:38 | disposition home or self-care (01) | LOC: BICMAMMO 13:37 | PROVIDERS: ATTEND Family Medicine | DX: Z12.31 Encounter for screening mammogram for malignant neoplasm of breast (principal) | CPT/HCPCS: 77063; 77067 ==

== ENCOUNTER 2024-07-01 13:56 | Outpatient (CLI) | payer OTHER | END 2024-07-01 13:57 | disposition home or self-care (01) | LOC: BICMAMMO 13:56 | PROVIDERS: ATTEND Family Medicine | DX: Z78.0 Asymptomatic menopausal state (principal) | CPT/HCPCS: 77080 ==